=== PATIENT | female | born 1950 | race Caucasian/White ===

== ENCOUNTER 2019-08-06 07:22 | Outpatient (CLI) | payer MEDICARE, MEDICAID, SELFPAY ==
--- NOTE | ~2019-08-06 | PE_ITS ---
EXAMINATION: PET skull to mid thigh DATE: 08/06/2019 09:58 INDICATION: Multiple lung nodules. TECHNIQUE: Blood glucose level was 88 mg/dL. 8.730 mCi of 18-fluorodeoxyglucose (18-FDG) was administ ered i.v. Low dose computed tomography (CT) images were acquired from the base of the brain to the pr oximal thighs for attenuation correction and anatomic localization. Automated exposure control was em ployed. Dose-length product (DLP) was 282 mGy-cm. Positron emission tomography (PET) images were acqu ired in the same distribution. COMPARISON: None FINDINGS: Head/neck: There is increased activity in the glottis without CT correlate, likely physiologic. There are no pathologically enlarged lymph nodes. Chest: There is moderate emphysema. There is scarring at left lung apex and in anterolateral left nathan g without increased activity, which may be changes of radiation therapy. There is an 11 mm nodule in left upper lobe without increased activity. Calcified left lung nodules and calcified left hilar lymp h nodes are consistent with old adenomatous disease. There is mild atelectasis in the inferior lungs. No pleural effusion. The heart size is normal. There are coronary artery calcifications. No pericard ial effusion. There is a right internal jugular port with tip in superior vena cava. Abdomen/pelvis/proximal thighs: Calcifications in the liver and spleen are consistent with old granul omatous disease. The gallbladder, pancreas, adrenal glands, and kidneys are normal. There are no dila brian loops of bowel. There are no pathologically enlarged lymph nodes. There is no free intraperitonea l fluid. There is no osseous malignancy. IMPRESSION: 1. 11 mm nodule in left lung upper lobe without increased activity, likely benign. Noncontrast low-do se chest CT is recommended in 6 months unless previous outside imaging confirms stability. Reviewed, dictated and finalized at location A. D AND GRAPHITE INSPECTOR IMPRESSION: 1. 11 mm nodule in left lung upper lobe without increased activity, likely autumn gn. Noncontrast low-dose chest CT is recommended in 6 months unless previous ou tside imaging confirms stability.
[2019-08-06 08:21] LABS: Glucose Point of Care 88 (65-105)
== END 2019-08-06 07:23 | disposition home or self-care (01) ==
PROVIDERS: Visit Provider Nurse Practitioner
DX: R91.8 Other nonspecific abnormal finding of lung field (principal); R91.1 Solitary pulmonary nodule
CPT/HCPCS: 78815; A9552

== ENCOUNTER 2020-05-13 09:49 | Outpatient (CLI) | payer MEDICARE, MEDICAID, SELFPAY ==
--- NOTE | 2020-05-24 07:38 | WPDPFTINT ---
PFT Interpretation PFT Interpretation: This PFT met all criteria for ATS standards and reproducibility FEV/FVC post bronchodilator 39% FEV1 27% or 0.55 liters FVC 50% or 1.43 liters TLC 117% RV 223% RV/TLC 75% DLCO 25% when adjusted for alveolar volume but not adjusted for hemoglobin Flow volume loops showed severe expiratory coving Impression: Very severe airflow obstruction with severe air trapping and severely reduced diffusion capacity. This pattern is suggestive of COPD. Clinical correlation is advised.
--- NOTE | 2020-05-24 07:40 | WPDSIXMINUTE ---
Six Minute Walk Six Minute Walk: The patients O2 sats started at 94% and dropped as low as 91% Total walk distance 152.40 conclusion: This patient does not qualify for home oxygen therapy
== END 2020-05-13 09:50 | disposition home or self-care (01) ==
PROVIDERS: PCP Internal Medicine; Visit Provider Nurse Practitioner
DX: J44.9 Chronic obstructive pulmonary disease, unspecified (principal)
CPT/HCPCS: 94060; 94618; 94726; 94729

== ENCOUNTER 2021-06-10 10:30 | Day surgery (SDC) | payer BC, SELFPAY ==
--- NOTE | 2021-06-09 12:00 | ECG_ITS ---
Measurements Intervals [place] Rate: 121 P: TN: 0 QRS: 56 QRSD: 105 T: 49 QT: 318 QTc: 452 Interpretive Statements ATRIAL FIBRILLATION WITH RAPID VENTRICULAR RESPONSE ABNORMAL ECG Electronically Signed On 06-14-2021 16:36:41 REHAB CONSULTANT by Chris Serrano D.O.
[2021-06-10] VITALS (8 sets, daily range): BP systolic 123–150; BP diastolic 50–59; PULSE 69–77; RESP 16–27; TEMP 36.6–36.7; O2SAT 93–100
--- NOTE | 2021-06-10 11:22 | ED.GENADULT ---
HPI - General Adult General Chief complaint: Skin/Abscess/Foreign Body Stated complaint: food bolus stuck in throat Time Seen by Provider: 06/10/21 10:56 Source: patient Mode of arrival: ambulatory Limitations: no limitations History of Present Illness HPI narrative: Patient is a 70-year-old female with COPD on 2 L of oxygen via nasal cannula at baseline presented with chief complaint of food bolus that presents on Monday and is a piece of pork. Patient reports that she presented to [facility] and was given an appointment with the GI specialist but it is not until 06-15-21. Patient reports that she feels a bolus sensation. Patient reports that even when she tries to take small sips of water to take her daily medication she vomits and cannot get them down. She denies feeling as if the food bolus has been remitted with the vomiting. She denies shortness of breath. She reports occasional cough. Patient denies being on anticoagulants. Patient reports having GERD, hypertension, COPD, decreased renal function. Patient reports still being a smoker, reports that she is attempting to quit. She reports being in remittance for breast cancer. Related Data Home Medications Medication Instructions Recorded Confirmed albuterol sulfate 1 puff INHALATION DAILY 06/10/21 06/10/21 budesonide-formoterol [Symbicort] 1 puff INHALATION DAILY 06/10/21 06/10/21 diltiazem HCl 240 mg PO DAILY 06/10/21 06/10/21 nebivolol [Bystolic] 10 mg PO DAILY 06/10/21 06/10/21 Allergies Allergy/AdvReac Type Severity Reaction Status Date / Time CODEINE Allergy Unknown Unknown Uncoded 06/10/21 10:59 NFA Allergy Unknown Unknown Uncoded 06/10/21 10:59 Review of Systems Review of Systems: CONSTITUTIONAL: Denies fever, chills, or sweats. EYES: Denies visual changes, redness, or discharge. ENT: Denies rhinorrhea, congestion, sore throat, or otalgia. CARDIOVASCULAR: Denies chest pain, palpitations, or edema. RESPIRATORY: Reports occasional cough denies dyspnea. GASTROINTESTINAL: Reports intermittent vomiting and food bolus sensation denies abdominal pain, nausea, or diarrhea. GENITOURINARY: Denies dysuria or hematuria. SKIN: Denies rash or itching. MUSCULOSKELETAL: Denies back pain, joint pain, or myalgia. NEUROLOGIC: Denies headache, numbness, dizziness, or weakness. PSYCHIATRIC: Denies anxiety or depression. [facility] Past Medical History Medical History (Updated 06/10/21 @ 12:51 by Young Mckenzie PA-C) COPD (chronic obstructive pulmonary disease) On home O2 Exam Narrative: GENERAL: Appears elderly and frail HEAD: Normocephalic, atraumatic. EYES: PERRLA and EOMI. ENT: Nares clear, no rhinorrhea or epistaxis. Mucous membranes moist. Oropharynx without tonsillar hypertrophy exudate or other lesions. Bilateral TMs pearly chaidez nonbulging NECK: Supple. No adenopathy or masses. No carotid bruits or JVD CHEST: Clear to auscultation. No respiratory distress. No wheezes rales or rhonchi HEART: Regular rate and rhythm. No murmur heard. Normal peripheral pulses. ABDOMEN: Soft, nontender, nondistended, normal active bowel sounds. EXTREMITIES: Normal range of motion. No edema. SKIN: Warm, dry, no rash. NEURO: No focal deficits. Alert and oriented x3. PSYCH: Normal mood and affect. Course Vital Signs Vital signs: Vital Signs Temperature 98.0 F 06/10/21 10:35 Pulse Rate 77 06/10/21 10:35 Respiratory Rate 16 06/10/21 10:35 Blood Pressure 143/55 H 06/10/21 10:35 Pulse Oximetry 97 06/10/21 10:35 Temperature 97.8 F 06/10/21 11:51 Pulse Rate 74 06/10/21 11:51 Respiratory Rate 22 H 06/10/21 11:51 Blood Pressure 148/56 H 06/10/21 11:51 Pulse Oximetry 100 06/10/21 11:51 Medical Decision Making MDM Narrative Medical decision making narrative: Consult with Dr. Tinoco- GI specialist who states to obtain consent from patient and make her NPO and he will take her to the GI lab to perform a EGD. Patient in agreement with plan foe EGD. D
--- NOTE | 2021-06-10 11:48 | WPDANESEPPF ---
Anes - Initial Pre Proc Eval Procedure: Operation Date: 06/10/21 13:30 Proposed Procedures p Esophagogastroduodenoscopy for Food Bolus - Jose Tinoco MD Date/Time: 06/10/21 11:48 Surgeon: Jose Tinoco MD Pre Op Diagnosis: food bolus stuck in throat Patient Data Age: 70 Gender: F Height: 1.63 m Weight: 40.8 kg Last Vital Signs Temp 36.7 C 06/10/21 10:35 Pulse 70 06/10/21 11:16 Resp 16 06/10/21 11:16 BP 150/58 H 06/10/21 11:16 Pulse Ox 97 06/10/21 11:27 Allergies Allergy/AdvReac Type Severity Reaction Status Date / Time CODEINE Allergy Unknown Unknown Uncoded 06/10/21 10:59 NFA Allergy Unknown Unknown Uncoded 06/10/21 10:59 Home Medications Medication Instructions Recorded Confirmed Type albuterol sulfate 1 puff INHALATION DAILY 06/10/21 06/10/21 History budesonide-formoterol [Symbicort] 1 puff INHALATION DAILY 06/10/21 06/10/21 History diltiazem HCl 240 mg PO DAILY 06/10/21 06/10/21 History nebivolol [Bystolic] 10 mg PO DAILY 06/10/21 06/10/21 History Patient hx anesthesia problems: none Family hx anesthesia problems: none Results Review: All pre-operative results and documents have been reviewed as part of the pre-operative evaluation. [facility] Past Medical History Medical History (Updated 06/10/21 @ 11:53 by Martin Cornell DO) COPD (chronic obstructive pulmonary disease) On home O2 Anes - Eval Final PreProcedure Day of Procedure 06/10/21 11:48 Patient weight: cachectic Heart: regular rate and rhythm Lungs: clear to auscultation and normal air movement Airway: Mallampati scale class II Neurological: alert and oriented Last oral intake: >/= 8 hours ASA classification: IV Emergent: no Anesthetic plan: proceed Anesthesia type and monitoring: general GIVS and standard monitoring Results Review: All pre-operative results and documents have been reviewed as part of the pre-operative evaluation. Informed Consent: The patient's anesthetic plan and its attendant risks and benefits were discussed with the patient/family/POA. Questions were solicited and answers provided to the satisfaction of the patient/family/POA.
--- NOTE | 2021-06-10 11:57 | WPDGICN ---
Assessment and Plan Assessment and plan (1) Food impaction of esophagus: Code(s): T18.128A - Food in esophagus causing other injury, initial encounter Status: Acute Assessment and Plan: Patient has food impaction in the esophagus. Likely related to narrowing of the esophagus. Plan is for EGD and hopefully disimpact this food impaction. Further recommendations regarding dilatation will depend on findings at time of endoscopy. (2) Dysphagia: Code(s): R13.10 - Dysphagia, unspecified Status: Acute Assessment and Plan: Patient has difficulty swallowing. She has had issues in the past. These were addressed at a different hospital. I suspect this is esophageal narrowing and stricturing secondary to acid reflux. Further recommendations will be given after endoscopy. (3) COPD (chronic obstructive pulmonary disease): Code(s): J44.9 - Chronic obstructive pulmonary disease, unspecified Status: Acute Assessment and Plan: Patient has longstanding COPD with home oxygen. She is somewhat short of breath today this will make at relatively high risk for endoscopic procedure today. Patient understands and wishes to proceed because she cannot swallow or take her medications. GI Consult Note Consult date/time: 06/10/21 11:57 HPI: Caridad Eli is a 70 year old female Presents to the ER today with food impaction. Patient has longstanding history of COPD on supplemental oxygen. She states on Monday 2 days ago was eating pork steaks. She subsequently was unable to eat or swallow. On Monday she presented to [facility] in [place]. She was given an elective appointment to see a brim greaser operator. She continued to have difficulty swallowing food or liquids in even difficulty with her own saliva. For this reason she presented to [facility] today. Patient states that she has had difficulty swallowing in the distant past. She may have had an endoscopy and dilatation more than 10 years ago. She does not take medications for acid reflux. She denies heartburn she has had no bleeding or weight loss. Additionally patient gives a history of breast cancer. On both left and right breasts in the past. Review of Systems Review of Systems: All systems reviewed & are unremarkable except as noted in HPI and below PMFSH Past Medical History Medical History (Updated 06/10/21 @ 12:00 by Jose Tinoco MD) COPD (chronic obstructive pulmonary disease) On home O2 Meds Home Medications and Allergies Home Medications Medication Instructions Recorded Confirmed Type albuterol sulfate 1 puff INHALATION DAILY 06/10/21 06/10/21 History budesonide-formoterol [Symbicort] 1 puff INHALATION DAILY 06/10/21 06/10/21 History diltiazem HCl 240 mg PO DAILY 06/10/21 06/10/21 History nebivolol [Bystolic] 10 mg PO DAILY 06/10/21 06/10/21 History Allergies Allergy/AdvReac Type Severity Reaction Status Date / Time CODEINE Allergy Unknown Unknown Uncoded 06/10/21 10:59 NFA Allergy Unknown Unknown Uncoded 06/10/21 10:59 Vital Signs Vital Signs - 24 hr 06/10/21 10:35 06/10/21 11:15 06/10/21 11:16 Temperature 98.0 F Pulse Rate 77 70 Respiratory Rate 16 16 Blood Pressure 143/55 H 150/58 H Pulse Oximetry 97 96 99 06/10/21 11:27 06/10/21 11:51 Temperature 97.8 F Pulse Rate 74 Respiratory Rate 22 H Blood Pressure 148/56 H Pulse Oximetry 97 100 Exam Narrative: Physical exam reveals patient to be alert. Vital signs stable. Patient is very thin has some muscle wasting. HEENT exam is unremarkable. Patient is anicteric. Patient has a port for chemotherapy in the right anterior chest wall. Lungs are clear to auscultation and percussion. Heart is without murmur or extra sounds. Abdominal exam bowel sounds present soft nontender with no hepatosplenomegaly.
[2021-06-10] MEDS: LACTATED RINGERS 1,000 ML 150 ML IV CONT (12:01)
== END 2021-06-10 13:35 | disposition home or self-care (01) ==
LOC: ANHED 11:11 → ANHENDO 11:15
PROVIDERS: Emergency Provider Emergency Medicine; PCP Internal Medicine; Visit Provider Internal Medicine Gastroenterology
PROC: 0DJ08ZZ Inspection of Upper Intestinal Tract, Via Natural or Artificial Opening Endoscopic (ICD-10-PCS; CPT 43235; principal; 2021-06-10 13:30)
DX: T18.128A Food in esophagus causing other injury, initial encounter (principal); Q39.4 Esophageal web; J44.9 Chronic obstructive pulmonary disease, unspecified; Z99.81 Dependence on supplemental oxygen; R64 Cachexia; Z68.1 Body mass index [BMI] 19.9 or less, adult
CPT/HCPCS: 43247; 93005; 96360; 99285; J2704; J7120

== ENCOUNTER → 2021-12-24 03:01 | Outpatient (CLI) | payer MEDICARE, MEDICAID, SELFPAY ==
[2021-12-24 16:51] LABS: SARS-CoV-2 RNA PCR Negative
== END ==
PROVIDERS: PCP Internal Medicine; Visit Provider Internal Medicine
DX: J01.90 Acute sinusitis, unspecified (principal); Z20.822 Contact with and (suspected) exposure to COVID-19
CPT/HCPCS: C9803; U0003; U0005

== ENCOUNTER 2022-12-14 10:23 | Inpatient (IN) | payer MEDICARE, MEDICAID, SELFPAY ==
[2022-12-14] VITALS (9 sets, daily range): BP systolic 100–166; BP diastolic 44–69; PULSE 71–89; RESP 17–23; TEMP 36.7–37.6; O2SAT 96–100; BMI 15.0
--- NOTE | ~2022-12-14 | XR_ITS ---
Portable chest x-ray Comparison: 12/23/2022 Clinical History: Shortness of breath Findings: Right-sided Mediport is unchanged. Small left pleural effusion is present. There is COPD p attern of the lungs with mild diffuse interstitial prominence. Biapical irregular nodular consolidati ons are again present. Cardiomediastinal silhouette is stable. Bones and soft tissues are unremarkabl e. Impression: Small left pleural effusion. Stable biapical irregular nodular opacities. Probable COPD or other underlying chronic interstitial disease. Stable Mediport. Reviewed, dictated and finalized at location . Impression: Small left pleural effusion. Stable biapical irregular nodular opacities. Probable COPD or other underlying chronic interstitial disease. Stable Mediport.
--- NOTE | ~2022-12-14 | CT_ITS ---
EXAMINATION: CT brain wo con DATE: 12/14/2022 11:09 INDICATION: Altered mental status and confusion TECHNIQUE: Computed tomography (CT) of the head was performed without intravenous contrast. Sagittal and coronal reconstructions were performed. Automated exposure control and iterative reconstruction t [employer] were employed. The dose-length product was 681.00 mGy-cm. COMPARISON: None FINDINGS: No acute intracranial hemorrhage, acute infarction or abnormal extra axial fluid collection. There is mild to moderate scattered white matter hypoattenuation consistent with chronic small vessel ischemic disease. Symmetric prominence of the sulci consistent with mild age-appropriate diffuse cer ebral volume loss. Ventricles are normal and symmetric. No mass/mass effect. Minimal mucosal thickeni ng the left frontal sinus. The orbits and mastoid air cells are normal. IMPRESSION: 1. No acute intracranial process. 2. Age-related changes including mild diffuse volume loss and mild to moderate scattered white matter hypoattenuation consistent with chronic small vessel ischemic disease. Reviewed, dictated and finalized at location A. IMPRESSION: 1. No acute intracranial process. 2. Age-related changes including mild diffuse volume loss and mild to moderate scattered white matter hypoattenuation consistent with chronic small vessel isc hemic disease.
--- NOTE | ~2022-12-14 | XR_ITS ---
EXAMINATION: XR chest 1V portable INDICATION: Cough TECHNIQUE: Portable AP chest at 1026 hours COMPARISON: 11/24/2022 FINDINGS: A right internal jugular Port-A-Cath ends with its tip in the midsuperior vena cava. There is a small left pleural effusion with interval increase in size. Left basilar airspace opacities have increased. There is severe emphysema. Subtle upper lobe predominant nodules are again seen, better a ppreciated on the comparison CT. IMPRESSION: 1. Small left pleural effusion with increase in size. 2. Increasing left basilar airspace opacity, atelectasis versus pneumonia. 3. Subtle nodules in the upper lung zones as previously described, infectious versus metastatic disea se. Reviewed, dictated and finalized at location B. IMPRESSION: 1. Small left pleural effusion with increase in size. 2. Increasing left basilar airspace opacity, atelectasis versus pneumonia. 3. Subtle nodules in the upper lung zones as previously described, infectious v ersus metastatic disease.
--- NOTE | ~2022-12-14 | XR_ITS ---
Portable chest x-ray Comparison: None Clinical History: Shortness of breath Findings: Right-sided Mediport in place. There is upper lobe predominant interstitial change. Possib le underlying COPD. Cardiomediastinal silhouette is stable. Bones and soft tissues are unremarkable. Impression: Upper lobe predominant chronic interstitial change. 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 Possible underlying COPD. Right-sided Mediport. Reviewed, dictated and finalized at location M. Impression: Upper lobe predominant chronic interstitial change. Most likely diagnostic cons iderations would include sarcoid and old TB. Possible underlying COPD. Right-sided Mediport.
--- NOTE | ~2022-12-14 | CT_ITS ---
Clinical Indication: Upper lobe interstitial disease, shortness of breath CT Scan of the Chest with Contrast: Technique: Contiguous sections were acquired throughout the chest after intravenous administration of 75 cc of Omnipaque 350. Dose reduction technique was used on this scan by utilizing automated exposu re control and iterative reconstruction technique. The dose-length product (DLP) was 137.74 mGy-cm. COMPARISON: PET/CT dated 08/06/2019 Findings: There is no evidence of any significant mediastinal, hilar or axillary lymphadenopathy. There is no f illing defect in the pulmonary arterial tree to suggest pulmonary embolus. There is no evidence of ao rtic dissection or aneurysm. Extensive atherosclerotic changes of the aorta are noted. There is no evidence of pleural or pericardial effusion. There is an irregular pulmonary nodule in the left lung apex measuring up to 2.4 x 0.9 cm (axial imag e 25). There are 2 adjacent irregular nodules in the superior segment left lower lobe, larger measuri ng 1.3 cm in diameter, and the smaller more medial nodule measuring 0.8 cm (axial image 24). There is an irregular nodule in the right upper lobe measuring 1.8 cm in maximum diameter ((axial image 24). There are smaller right apical nodules measuring up to 0.6 cm in diameter (axial images 18, 21). Ther e is an additional 0.6 and a nodule in the more inferior right upper lobe (axial image 37). Moderate to severe emphysema present. There is interstitial thickening at the left lung base. There is a 3 mm right lower lobe pulmonary nodule (axial image 86). Images through the upper abdomen reveal relative area of increased parenchymal enhancement in the ant erior left hepatic lobe. Calcified splenic granulomas are present. Impression: Multiple irregular pulmonary nodules, predominantly in the upper lobes, as detailed above. Findings c ould reflect metastatic disease versus possibly infectious process. Correlate clinically and with rel evant history. Consider tissue sampling versus short-term follow-up CT after anterior interval approp riate therapy. Moderate to severe COPD. Interstitial thickening left lung base. This could relate related to COPD. Acute pneumonia there is a n additional consideration. Reviewed, dictated and finalized at location M. Impression: Multiple irregular pulmonary nodules, predominantly in the upper lobes, as deta iled above. Findings could reflect metastatic disease versus possibly infectiou s process. Correlate clinically and with relevant history. Consider tissue samp ling versus short-term follow-up CT after anterior interval appropriate therapy . Moderate to severe COPD. Interstitial thickening left lung base. This could relate related to COPD. Acut e pneumonia there is an additional consideration.
--- NOTE | ~2022-12-14 | US_ITS ---
EXAMINATION:US venous doppler LE BI INDICATION:Leg edema TECHNIQUE: Multiple grayscale, color flow and Doppler images of the right and left lower extremity de ep venous systems were obtained and reviewed. COMPARISON:No prior studies for comparison. FINDINGS: The common femoral, superficial femoral and popliteal veins demonstrate normal respiratory variation, augmentation and compressibility. Color flow is also seen within the posterior tibial, pe roneal, greater saphenous and profunda veins. IMPRESSION: 1: No lower extremity deep venous thrombosis. Reviewed, dictated and finalized at location L.
--- NOTE | ~2022-12-14 | XR_ITS ---
EXAMINATION: XR barium swallow modified DATE: 12/26/2022 09:48 INDICATION: Choking and vomiting. TECHNIQUE: The patient was given barium-containing material of multiple consistencies to swallow by t daniele speech pathologist while I performed fluoroscopy. Fluoroscopy exposure time was 1.0 minutes. The n umber of fluoroscopy images saved to the PACS was 1. Dose-area product was 0.711 Gy-cm^2. FINDINGS: There is reduced laryngeal elevation, reduced tongue base retraction, vallecular residue, and larynge al penetration. IMPRESSION: 1. Laryngeal penetration. 2. Please refer to the speech therapy report for recommendations. Reviewed, dictated and finalized at location A.
--- NOTE | 2022-12-14 10:33 | ECG_ITS ---
Measurements Intervals [place] Rate: 87 P: 85 NV: 177 QRS: 58 QRSD: 94 T: 39 QT: 361 QTc: 437 Interpretive Statements SINUS RHYTHM COMPARED TO ECG 06/10/2021 12:00:11 THE ATRIAL FIBRILLATION HAS RESOLVED Electronically Signed On 12-14-2022 19:53:48 CDT by Judy Stiles M.D.
--- NOTE | 2022-12-14 10:52 | ED.SOB ---
HPI - SOB/Dyspnea General Chief Complaint: Shortness of Breath/Dyspnea <FRANK Pearson Last Filed: 12/14/22 17:43> Stated Complaint: SOB <Debbie Hamlin PA-C - Last Filed: 12/14/22 17:43> Time Seen by Provider: 12/14/22 10:25 <FRANK Perason Last Filed: 12/14/22 17:43> History of Present Illness HPI Narrative: Patient is a 71-year-old female with a history of COPD on 3 L chronically here for multiple medical complaints. History is somewhat limited because patient appears confused. Patient states that she initially called EMS for shortness of breath. According to EMS when they arrived her oxygen tubing was kinked, she was saturating at 90%, when they unkinked her oxygen she came up to 98%, but her shortness of breath persisted. Patient then started to complain of a soreness near her tailbone, worse when she sits. Patient is also concerned about intermittent nosebleeds for the past several weeks and sinus congestion. She states she is concerned about a possible infection in her lungs because of the nosebleeds. Patient lives at home by herself. She does have a home health nurse that comes occasionally. <FRANK Pearson Last Filed: 12/14/22 17:43> Related Data Home Medications: Home Medications Medication Instructions Recorded Confirmed albuterol sulfate 90 mcg/actuation 1 puff inhalation DAILY 06/10/21 12/14/22 aerosol inhaler budesonide-formoterol HFA 160 1 puff inhalation DAILY 06/10/21 12/14/22 mcg-4.5 mcg/actuation aerosol inhaler (Symbicort) diltiazem HCl 240 mg 240 mg PO DAILY 06/10/21 12/14/22 capsule,extended release 24 hr nebivolol 10 mg tablet (Bystolic) 10 mg PO DAILY 06/10/21 12/14/22 furosemide 40 mg tablet 40 mg PO WEEKLY PRN Edema 12/14/22 12/14/22 <FRANK Pearson Last Filed: 12/14/22 17:43> Allergies/Adverse Reactions: Allergies Allergy/AdvReac Type Severity Reaction Status Date / Time codeine Allergy Unknown Unknown Verified 12/21/22 11:34 NFA Allergy Unknown Unknown Uncoded 12/14/22 18:25 <Debbie Hamlin PA-C - Last Filed: 12/14/22 17:43> Review of Systems Review of Systems: Gen: Denies fevers or chills Eyes: Denies eye pain or visual change ENT: Reports congestion and nosebleeds Respiratory: Reports shortness of breath CV: Denies chest pain or palpitations GI: Denies abdominal pain nausea, emesis or diarrhea denies burning, urgency, frequency or hematuria Musculoskeletal: Denies back pain or muscle pain Neuro: Denies numbness, tingling, weakness or focal weakness Skin: Reports pain in her tailbone Except as documented, all other systems reviewed and negative <Debbie Hamlin PA-C - Last Filed: 12/14/22 17:43> [facility] Past Medical History Medical History: Medical History (Updated 12/15/22 @ 16:12 by Nery Sanchez PA-C) Breast cancer Status post bilateral mastectomy and chemoradiation. Chronic obstructive pulmonary disease Chronic respiratory failure with hypoxia, on home oxygen therapy Diverticulosis GI bleed (2009) Attributed to bleeding ulcers. Hypertension Peptic ulcer Tobacco dependence <Debbie Hamlin PA-C - Last Filed: 12/14/22 17:43> Surgical History Surgical History: Surgical History (Updated 12/14/22 @ 23:27 by Elda Watt PA-C) History of bilateral mastectomy History of section History of tubal ligation <Debbie Hamlin PA-C - Last Filed: 12/14/22 17:43> Family History Family History: Family History Father Cerebrovascular accident Mother Cancer of mouth Sibling Hypertension <Debbie Hamlin PA-C - Last Filed: 12/14/22 17:43> Social History Social History: Social History (Updated 12/14/22 @ 23:27 by Elda Watt PA-C) Social History: Surrogate medical decision maker: Natalie Cabral, sibling. [place]
[2022-12-14 11:09] LABS: Basophils Percent Auto 0.2 % (0.2-1.2); Eosinophils Percent Auto 0.1 % (0-4.4); Hematocrit 33.3 % (37.0-47.0); Hemoglobin 11.4 g/dL (12.0-15.0); Immature Granulocyte Absolute 0.05 K/mm3 (0.00-0.031); Immature Granulocyte Percent A 0.4 % (0-0.5); Lymphocytes Absolute Auto 0.48 K/mm3 (0.9-3.2); Lymphocytes Percent Auto 4.2 % (18.3-44.2); Mean Corpuscular HGB Conc 34.2 g/dl (32-36); Mean Corpuscular Volume 87.6 fl (80-100); Monocytes Absolute Auto 0.6 K/mm3 (0.1-0.6); Monocytes Percent Auto 5.4 % (2.6-8.5); Neutrophils Absolute Auto 10.4 K/mm3 (1.3-6.7); Neutrophils Percent Auto 89.7 % (45.5-73.1); Platelet Count Result 188 k/mm3 (150-375); Red Cell Distribution Width 13.2 % (11.5-14.5); White Blood Count 11.6 K/mm3 (4.5-10.0)
[2022-12-14 11:20] LABS: Alanine Aminotransferase 12 U/L (6-35); Alkaline Phosphatase 93 U/L (38-126); Aspartate Amino Transferase 21 U/L (14-36); Bilirubin,Total 1.4 mg/dL (0.2-1.3); Blood Urea Nitrogen 9 mg/dL (7-17); Calcium 8.9 mg/dL (8.4-10.2); Carbon Dioxide > 40 mmol/L (22-30); Chloride 76 mmol/L (98-107); Estimated CRCL calculation 50 ml/min; Estimated Glomerular Filt Rate > 60; Glucose 108 mg/dL (65-110); Partial Thromboplastin Time 28.9 SECONDS (22.3-36.8); Potassium 3.6 mmol/L (3.4-5.0); Sodium 120 mmol/L (137-145)
[2022-12-14 11:44] LABS: Creatine Kinase 30 U/L (30-135); Magnesium 1.6 mg/dL (1.6-2.3); Phosphorus 3.5 mg/dL (2.5-4.5)
[2022-12-14 11:59] LABS: Influenza A QL RT-PCR Negative (Negative); Influenza B QL RT-PCR Negative (Negative); SARS-CoV-2 RNA PCR Negative (Negative)
[2022-12-14 12:14] LABS: Appearance Urine Cloudy (Clear); Bacteria Urine None Seen /hpf; Bilirubin Urine Negative (Negative); Blood Urine Negative (Negative); Color Urine Yellow (Yellow); Glucose Urine UA Negative (Negative); Ketones Urine Trace mg/dL (Negative); Leukocyte Esterase Ur Trace LEU/UL (Negative); Nitrate Urine Negative (Negative); Non Pathogenic Casts 0-2; Protein Urine Negative (Negative); Specific Grav Ur 1.011 (1.001-1.035); Squamous Epithelial Cell Urine Few /hpf (Few); WBC Urine 0-5 /hpf; pH Urine 7.5 (5.0-9.0)
[2022-12-14 12:26] LABS: Creatinine Urine 80.6 mg/dL
[2022-12-14] MEDS: SILVERGEL (ELTA) 45 ML 1 APPLIC TOPICAL (12:26)
[2022-12-14 12:27] LABS: Fractional Inspired Oxygen 32 %; HCO3 VBG 38.9 mEq/l (24.0-30.0); PCO2 VBG 55.9 mmHg (42.0-48.0); PO2 VBG 38.9 mmHg (35.0-45.0)
[2022-12-14 12:27] LABS: Sodium Urine Random 20 meq/L
[2022-12-14 12:28] LABS: Device NASAL CANNULA
[2022-12-14 12:31] LABS: Add Urine Microscopic? YES
[2022-12-14 12:34] LABS: Lactic Acid Reflex 1.1 mmol/L (0.7-2.0)
[2022-12-14] MEDS: IPRATROPIUM BR 0.02% INH SOLN 0.5 MG/2.5 ML VIAL INHALATION (13:13)
[2022-12-14] MEDS: ALBUTEROL SULFATE NEB 2.5 MG/3 ML INH INHALATION (13:13)
[2022-12-14] MEDS: SODIUM CHLORIDE 0.9% IV 1,000 ML 999 ML IV CONT (13:17)
[2022-12-14 13:44] LABS: Thyroid Stimulating Hormone Reflex 0.966 uIU/mL (0.465-4.68)
[2022-12-14] MEDS: AZITHROMYCIN 500 MG/NS 250 ML 500 MG/250 ML BAG 250 MG IVPB (14:02)
[2022-12-14] MEDS: ACETAMINOPHEN 325 MG TABLET 650 MG PO (14:08)
--- NOTE | 2022-12-14 15:00 | ADMGEN ---
This patient, Caridad Eli, was admitted to Medical Room 250-01. Patient/family oriented to hospital policies and general routines including ID bracelet, bed and alarms, visiting hours, pain management, procedures, bathroom and other care routines, personal items, smoking policy, room service/diet, and visiting hours. Information on how to activate the Rapid Response Team has been discussed. Patient/Family are encouraged to report perceived risks to care and to ask questions if they do not understand what they are told or what they should do.
[2022-12-14] MEDS: SODIUM CHLORIDE 0.9% IV 1,000 ML 100 ML IV CONT (15:44)
[2022-12-14 17:56] LABS: Anion Gap 1 mmol/L (8-16); Blood Urea Nitrogen 8 mg/dL (7-17); Calcium 8.1 mg/dL (8.4-10.2); Carbon Dioxide 38 mmol/L (22-30); Chloride 82 mmol/L (98-107); Estimated CRCL calculation 55 ml/min; Estimated Glomerular Filt Rate > 60; Glucose 131 mg/dL (65-110); Potassium 3.6 mmol/L (3.4-5.0); Sodium 121 mmol/L (137-145)
[2022-12-14 20:33] LABS: Urea Random Urine 321 MG/DL
--- NOTE | 2022-12-14 23:19 | PM.IMHP ---
H&P: HPI History of Present Illness Date/Time: 12/14/22 15:00 Chief Complaint: Shortness of breath Narrative: This is a pleasant 71-year-old female smoker with chronic respiratory failure on 3 L nasal cannula, chronic obstructive pulmonary disease, and history of breast cancer who presented to the emergency department via EMS from home for evaluation of shortness of breath. The patient provides the following history. She has chronic dyspnea on exertion given her underlying lung disease however she has been increasingly short of breath for the last week or so. She has a chronic cough though it has more recently become productive of yellow sputum. She has had mild chills but no fever to her knowledge. Today she was more short of breath than usual and she called 911. On EMS arrival her oxygen tubing was reportedly kinked though her SpO2 was 90% on room air. Vital signs have been stable since arrival and she is at her baseline oxygen requirement. Labs were significant for white blood cell count of 11.6, sodium 120, chloride 76, BUN 9, creatinine 0.50. Chest CTA showed multiple, irregular pulmonary nodules in the upper lobes which could reflect metastatic disease or infection as well as monitors severe COPD and possible acute pneumonia at the left lung base. She was started on azithromycin and ceftriaxone. She is being admitted in this setting for pneumonia and hyponatremia. At the time my evaluation she is resting comfortably and she has no specific complaints. She has not had a fever. She denies headache, sinus congestion, and sore throat. No recent travel or sick contacts. No chest or pleuritic pain. Appetite has been fair though she has lost about 20 lb in the last year or so. She denies nausea, vomiting, and diarrhea. To her knowledge she has not had low sodium in the past. She drinks a 16 oz Pepsi and maybe a glass of water throughout the day. She has not noticed any confusion. Of note she has not smoked much this month at all and intends on quitting. Review of Systems Review of Systems: Twelve systems were reviewed and are negative except for as per HPI. [facility] Past Medical History Medical History (Updated 12/14/22 @ 23:30 by Elda Watt PA-C) Breast cancer Status post bilateral mastectomy and chemoradiation. Chronic obstructive pulmonary disease Chronic respiratory failure with hypoxia, on home oxygen therapy Diverticulosis GI bleed (2009) Attributed to bleeding ulcers. Hypertension Peptic ulcer Tobacco dependence Surgical History Surgical History (Updated 12/14/22 @ 23:27 by Elda Watt PA-C) History of bilateral mastectomy History of section History of tubal ligation Family History Family History Father Cerebrovascular accident Mother Cancer of mouth Sibling Hypertension Social History Social History (Updated 12/14/22 @ 23:27 by lEda Watt PA-C) Social History: Surrogate medical decision maker: Natalie Delucacock, sibling. Code status: Full code. Smoking packs per day: 0.5 Smoking cigarettes per day: 10.0 Years smoked: 55 Smoking pack-years: 27.50 Smoking status: Current every day smoker Alcohol intake: never Substance use: never Substance use type: does not use Lack of Transportation: No Lack of Food: Never True Current Housing: I Have Housing Concerned About Future Housing: No Difficulty Paying Gas/Electric Bills: No Difficulty Paying for Meds: No Currently Unemployed: No Education: High School Diploma/GED Difficulty w/ Childcare or Family Care: No Living arrangements: alone Additional living arrangements comments: The patient lives in her own home in [place]. Spiritual care concerns: No Meds Home Medications and Allergies Home Medications Medication Instructions Recorded Confirmed Type albuterol sulfate 90 mcg/actuation 1 puff inhalation DAILY 06/10/21 12/14/22
[2022-12-15] VITALS (23 sets, daily range): BP systolic 120–142; BP diastolic 53–58; PULSE 72–96; RESP 17–20; TEMP 36.7–36.9; O2SAT 95–99; BMI 15.0
--- NOTE | 2022-12-15 | ECHO_ITS ---
Patient Info Name: Caridad Eli Age: 71 years : 1950 Gender: Female Ht: 64 in Wt: 87 lbs BSA: 1.32 m2 HR: 81 bpm BP: 138 / 53 mmHg Heart Rhythm: Sinus Arrhythmia Technical Quality: Fair Exam Date: 12/15/2022 9:07 AM Exam Location: [facility] Patient Status: Outpatient Admit Date: 12/14/2022 Staff Ordering Physician: Elda Watt PA-C Calculator Operator: Felipe Brandt RDCS Attending Provider: Nery Sanchez PA-C Referring Physician: Shukri DIAZ; Exam Type: CA echo doppler color flow Study Info Indications - apical murmur/HTN/COPD Complete two-dimensional, color flow and Doppler transthoracic echocardiogram is performed. Summary 1. Complete two-dimensional, color flow and Doppler transthoracic echocardiogram is performed. 2. Left ventricular chamber dimension is normal. 3. Left ventricular systolic function is hyperdynamic, estimated at >70%. 4. There is mildly increased left ventricular wall thickness. 5. The left ventricular diastolic function is grade I diastolic dysfunction. 6. Right ventricular systolic function is normal. 7. There is mild mitral valve regurgitation. 8. There is trace tricuspid valve regurgitation. 9. There is small anterior pericardial effusion. Left Ventricle Left ventricular chamber dimension is normal. Left ventricular systolic function is hyperdynamic, estimated at >70%. There is mildly increased left ventricular wall thickness. The left ventricular diastolic function is grade I diastolic dysfunction. Right Ventricle Right ventricular chamber dimension is normal. Right ventricular systolic function is normal. Left Atria Left atrial chamber dimension is normal. Right Atria Right atrial chamber dimension is normal. Atrial Septum Intact interatrial septum visualized by color flow imaging. Aortic Valve The aortic valve is probable trileaflet. There is no aortic valve stenosis. There is no aortic valve regurgitation. There is moderate aortic valve calcification. Pulmonic Valve The pulmonic valve is not well visualized. Mitral Valve There is mild mitral valve regurgitation. The mitral valve annulus is moderately calcified. Tricuspid Valve There is trace tricuspid valve regurgitation. Pericardium/Pleural There is small anterior pericardial effusion. Inferior Vena Cava Normal inferior vena cava with >50% collapse upon inspiration consistent with normal right atrial pressure, 3 mmHg. Aorta The aortic root size at the sinus of Valsalva is normal. Left Ventricular Outflow Tract Name Value Normal LVOT 2D LVOT Diameter 2.0 cm LVOT Doppler LVOT Peak Gradient 12 mmHg LVOT Mean Gradient 7 mmHg LVOT VTI 39 cm LVOT VTI/AV VTI Ratio 1.1 LVOT Stroke Volume 129 ml LVOT CO 12.3 l/min LVOT CI 9.3 l/min/m2 Pulmonic Valve Name Value Normal RVOT D
[2022-12-15 00:30] LABS: Sodium 123 mmol/L (137-145)
[2022-12-15] MEDS: ALBUTEROL SULFATE NEB 2.5 MG/3 ML INH INHALATION ×4 (01:40→21:55)
[2022-12-15] MEDS: IPRATROPIUM BR 0.02% INH SOLN 0.5 MG/2.5 ML VIAL INHALATION ×4 (01:40→21:55)
[2022-12-15 05:16] LABS: Hematocrit 31.6 % (37.0-47.0); Hemoglobin 10.7 g/dL (12.0-15.0); Mean Corpuscular HGB Conc 33.9 g/dl (32-36); Mean Corpuscular Hemoglobin 30.1 pg (26-34); Mean Platelet Volume 7.5 fl (7.4-10.4); Platelet Count Result 163 k/mm3 (150-375); Red Blood Count 3.55 M/mm3 (4.2-5.4); Red Cell Distribution Width 13.4 % (11.5-14.5); White Blood Count 9.4 K/mm3 (4.5-10.0)
[2022-12-15 05:28] LABS: Anion Gap 3 mmol/L (8-16); Blood Urea Nitrogen 8 mg/dL (7-17); Calcium 8.1 mg/dL (8.4-10.2); Carbon Dioxide 36 mmol/L (22-30); Chloride 87 mmol/L (98-107); Estimated CRCL calculation 55 ml/min; Estimated Glomerular Filt Rate > 60; Glucose 87 mg/dL (65-110); Magnesium 1.7 mg/dL (1.6-2.3); Potassium 3.3 mmol/L (3.4-5.0); Sodium 126 mmol/L (137-145)
[2022-12-15] MEDS: FLUTICASONE/SALMETEROL 115-21 MCG INHALER 1 PUFF 2 PUFF INHALATION ×2 (07:15→21:55)
[2022-12-15] MEDS: MAGNESIUM SULF 2 GM/WATER 50ML 2 GM/50 ML BAG IVPB (10:02)
[2022-12-15] MEDS: ENOXAPARIN 40 MG/0.4 ML SYRINGE SUB-Q (10:04)
[2022-12-15] MEDS: NEBIVOLOL HCL 5 MG TABLET 10 MG PO (10:05)
[2022-12-15 10:39] LABS: Sodium 126 mmol/L (137-145)
[2022-12-15] MEDS: POTASSIUM CHLORIDE 20 MEQ PACKET (FOR LIQUID) PO (12:10)
[2022-12-15] MEDS: AZITHROMYCIN 500 MG/NS 250 ML 500 MG/250 ML BAG 250 MG IVPB (13:16)
--- NOTE | 2022-12-15 15:54 | PM.IMPN ---
Progress Note: A&P Assessment and Plan (1) Community acquired pneumonia: Code(s): J18.9 - Pneumonia, unspecified organism Status: Acute Assessment and Plan: CXR on presentation showed upper lobe predominant chronic interstitial changes, follow-up CT showed multiple irregular pulmonary nodules, predominantly in the upper lobes, concerning for metastatic disease versus possibly infectious process. Continue with ceftriaxone and azithromycin. Attempt sputum for culture. Legionella and pneumococcal antigens pending. (2) Pulmonary nodules: Code(s): R91.8 - Other nonspecific abnormal finding of lung field Status: Acute Assessment and Plan: She should have a short-term follow-up CT following appropriate treatment for pneumonia to ensure the multiple irregular pulmonary nodules noted on chest CT today are stable or improving. She does have a history of bilateral breast cancer and there is a possibility that these nodules may be malignant. (3) Hyponatremia: Code(s): E87.1 - Hypo-osmolality and hyponatremia Status: Acute Assessment and Plan: The patient's sodium was 120 and her urine electrolytes are pre renal. Sodium improved at appropriate rate, up to 126 today. Goal increase of no more than 8 mEq/24 hours. Continue with fluid restriction diet at this time. Trend sodium q6h. (4) Hypokalemia: Code(s): E87.6 - Hypokalemia Status: Acute Assessment and Plan: Potassium 3.3. Initiate supplementation. Magnesium low at 1.7, begin supplementation as well. Monitor BMP (5) Chronic respiratory failure with hypoxia, on home oxygen therapy: Code(s): J96.11 - Chronic respiratory failure with hypoxia; Z99.81 - Dependence on supplemental oxygen Status: Acute Assessment and Plan: At baseline oxygen requirement (6) Chronic obstructive pulmonary disease: Code(s): J44.9 - Chronic obstructive pulmonary disease, unspecified Status: Acute Assessment and Plan: Not in acute exacerbation. Bronchodilators available as needed (7) Hypertension: Code(s): I10 - Essential (primary) hypertension Status: Acute Assessment and Plan: Blood pressures are stable. Continue home meds (8) Tobacco dependence: Code(s): F17.200 - Nicotine dependence, unspecified, uncomplicated Status: Acute Assessment and Plan: Declines need for nicotine patch. Has intentions of quitting smoking. Subjective Date/time seen: 12/15/22 15:54 Interval history: Date of service: 12/15/2022 Dot R Eli is a 71-year-old female with a history of COPD, chronic respiratory failure on 3 L supplemental oxygen, tobacco dependence, hypertension, breast cancer who is seen in follow-up for pneumonia and hyponatremia. Patient states that her breathing has improved. She continues to endorse shortness of breath and dyspnea on exertion. Complains of nonproductive cough. She feels that she has phlegm in her throat that she cannot cough up. She endorses over night sweats, fever, and chills. Denies chest pain. Reports unchanged, chronic wheezing. No abdominal pain, nausea, or vomiting. She is tolerating her diet. She denies dizziness, lightheadedness, weakness. Denies confusion. Review of Systems Review of Systems: Twelve systems were reviewed and are negative except for as per HPI. All systems reviewed & are unremarkable except as noted in HPI and below Exam Narrative: General: well-nourished, well-appearing 71-year-old female, sitting up in bed, comfortable, NARD Neuro: awake, alert and oriented x4, speech clear, no focal neuro deficits noted HEENMT: normocephalic, atraumatic, EOMI, sclerae anicteric Respiratory: Diminished breath sounds bilaterally, nonlabored breathing Cardio: regular rate, regular rhythm with S1-S2 Abdomen: nondistended, normoactive bowel sounds, soft, nontender to palpation Extremiti
[2022-12-15 17:01] LABS: Sodium 125 mmol/L (137-145)
[2022-12-15] MEDS: SILVERGEL (ELTA) 45 ML 1 APPLIC TOPICAL (17:17)
[2022-12-15] MEDS: guaiFENesin 12 HR 600 MG TABCR PO (20:37)
[2022-12-15] MEDS: DOCUSATE SODIUM 100 MG CAPSULE PO (20:37)
[2022-12-15 23:54] LABS: Sodium 126 mmol/L (137-145)
[2022-12-16] VITALS (18 sets, daily range): BP systolic 119–135; BP diastolic 49–52; PULSE 72–85; RESP 16–22; TEMP 36.7–37; O2SAT 95–98
[2022-12-16] MEDS: ALBUTEROL SULFATE NEB 2.5 MG/3 ML INH INHALATION ×4 (02:32→21:03)
[2022-12-16] MEDS: IPRATROPIUM BR 0.02% INH SOLN 0.5 MG/2.5 ML VIAL INHALATION ×4 (02:32→21:03)
[2022-12-16 06:30] LABS: Hematocrit 31.6 % (37.0-47.0); Hemoglobin 10.2 g/dL (12.0-15.0); Mean Corpuscular HGB Conc 32.3 g/dl (32-36); Mean Corpuscular Hemoglobin 29.1 pg (26-34); Platelet Count Result 194 k/mm3 (150-375); Red Blood Count 3.51 M/mm3 (4.2-5.4); Red Cell Distribution Width 13.2 % (11.5-14.5); White Blood Count 6.7 K/mm3 (4.5-10.0)
[2022-12-16 06:49] LABS: Anion Gap 4 mmol/L (8-16); Blood Urea Nitrogen 7 mg/dL (7-17); Calcium 8.2 mg/dL (8.4-10.2); Carbon Dioxide 34 mmol/L (22-30); Chloride 88 mmol/L (98-107); Estimated CRCL calculation 66 ml/min; Estimated Glomerular Filt Rate > 60; Glucose 83 mg/dL (65-110); Potassium 3.5 mmol/L (3.4-5.0); Sodium 126 mmol/L (137-145)
[2022-12-16] MEDS: SILVERGEL (ELTA) 45 ML 1 APPLIC TOPICAL (08:18)
[2022-12-16] MEDS: DOCUSATE SODIUM 100 MG CAPSULE PO ×2 (08:18→21:35)
[2022-12-16] MEDS: NEBIVOLOL HCL 5 MG TABLET 10 MG PO (08:18)
[2022-12-16] MEDS: guaiFENesin 12 HR 600 MG TABCR PO ×2 (08:18→21:35)
[2022-12-16] MEDS: ENOXAPARIN 40 MG/0.4 ML SYRINGE SUB-Q (08:18)
[2022-12-16] MEDS: polyethylene glycoL 3350 17 GM POWD.PACK PO (08:23)
[2022-12-16] MEDS: FLUTICASONE/SALMETEROL 115-21 MCG INHALER 1 PUFF 2 PUFF INHALATION ×2 (08:49→21:03)
[2022-12-16] MEDS: SODIUM CHLORIDE 0.9% IV 1,000 ML 50 ML IV CONT (10:24)
[2022-12-16 12:21] LABS: Sodium 126 mmol/L (137-145)
[2022-12-16] MEDS: AZITHROMYCIN 500 MG/NS 250 ML 500 MG/250 ML BAG 125 MG IVPB (12:48)
--- NOTE | 2022-12-16 16:01 | PM.IMPN ---
Progress Note: A&P Assessment and Plan (1) Community acquired pneumonia: Code(s): J18.9 - Pneumonia, unspecified organism Status: Acute Assessment and Plan: CXR on presentation showed upper lobe predominant chronic interstitial changes, follow-up CT showed multiple irregular pulmonary nodules, predominantly in the upper lobes, concerning for metastatic disease versus possibly infectious process. Continue with ceftriaxone and azithromycin. Sputum culture pending. Legionella and pneumococcal antigens pending. COVID and influenza negative. Supportive care to include bronchodilators, expectorants, incentive spirometry, Cornet valve (2) Pulmonary nodules: Code(s): R91.8 - Other nonspecific abnormal finding of lung field Status: Acute Assessment and Plan: She should have a short-term follow-up CT following appropriate treatment for pneumonia to ensure the multiple irregular pulmonary nodules noted on chest CT are stable or improving. She does have a history of bilateral breast cancer and there is a possibility that these nodules may be malignant. (3) Hyponatremia: Code(s): E87.1 - Hypo-osmolality and hyponatremia Status: Acute Assessment and Plan: The patient's sodium was 120 on presentation and her urine electrolytes are pre renal. Sodium improved at appropriate rate and now remaining stable, unchanged at 126. Goal increase of no more than 8 mEq/24 hours. Continue with fluid restriction diet at this time. Will restart gentle IV fluids. Trend sodium q6h. (4) Hypokalemia: Code(s): E87.6 - Hypokalemia Status: Acute Assessment and Plan: Resolved. Potassium 3.5. (5) Chronic respiratory failure with hypoxia, on home oxygen therapy: Code(s): J96.11 - Chronic respiratory failure with hypoxia; Z99.81 - Dependence on supplemental oxygen Status: Acute Assessment and Plan: At baseline oxygen requirement, 3 L at all times (6) Chronic obstructive pulmonary disease: Code(s): J44.9 - Chronic obstructive pulmonary disease, unspecified Status: Acute Assessment and Plan: Not in acute exacerbation. Bronchodilators available as needed (7) Hypertension: Code(s): I10 - Essential (primary) hypertension Status: Acute Assessment and Plan: Blood pressures are stable. Continue home meds (8) Tobacco dependence: Code(s): F17.200 - Nicotine dependence, unspecified, uncomplicated Status: Acute Assessment and Plan: Declines need for nicotine patch. Has intentions of quitting smoking. Subjective Date/time seen: 12/16/22 16:01 Interval history: Date of service: 12/16/2022 Adriane Eli is a 71-year-old female with a history of COPD, chronic respiratory failure on 3 L supplemental oxygen, tobacco dependence, hypertension, breast cancer who is seen in follow-up for pneumonia and hyponatremia. Feels more short of breath today. Endorses IVEIRA. Complains of cough productive of white phlegm. States that she feels exhausted. Denies fever, chills, nausea, vomiting. Denies numbness, tingling, dizziness, lightheadedness. No chest pain or palpitations. Review of Systems Review of Systems: All systems reviewed & are unremarkable except as noted in HPI and below Exam Narrative: General: Thin, chronically ill-appearing 71-year-old female, sitting up in bed, comfortable, NARD Neuro: awake, alert and oriented x4, speech clear, no focal neuro deficits noted HEENMT: normocephalic, atraumatic, EOMI, sclerae anicteric Respiratory: Diminished breath sounds bilaterally without crackles, rhonchi, wheezes, nonlabored breathing, wet cough Cardio: regular rate, regular rhythm with S1-S2 Abdomen: nondistended, normoactive bowel sounds, soft, nontender to palpation Extremities: no edema, erythema, or tenderness to palpation, DP pulses 2+ bilaterally Skin: no rashes or lesions, warm an
--- NOTE | 2022-12-16 16:09 | PCPTNOTE ---
Attempted to see pt for physical therapy evaluation, pt refused d/t just getting done working with OT. Will continue to follow.
[2022-12-16 17:53] LABS: Sodium 125 mmol/L (137-145)
[2022-12-17] VITALS (19 sets, daily range): BP systolic 113–156; BP diastolic 52–68; PULSE 73–92; RESP 16–20; TEMP 36–37.2; O2SAT 96–100
[2022-12-17] MEDS: IPRATROPIUM BR 0.02% INH SOLN 0.5 MG/2.5 ML VIAL INHALATION ×3 (01:38→13:54)
[2022-12-17] MEDS: ALBUTEROL SULFATE NEB 2.5 MG/3 ML INH INHALATION ×3 (01:38→13:55)
[2022-12-17 05:59] LABS: Hematocrit 29.9 % (37.0-47.0); Hemoglobin 9.6 g/dL (12.0-15.0); Mean Corpuscular HGB Conc 32.1 g/dl (32-36); Mean Corpuscular Hemoglobin 29.1 pg (26-34); Mean Corpuscular Volume 90.6 fl (80-100); Platelet Count Result 208 k/mm3 (150-375); Red Cell Distribution Width 13.2 % (11.5-14.5); White Blood Count 4.9 K/mm3 (4.5-10.0)
[2022-12-17 06:07] LABS: Anion Gap -1 mmol/L (8-16); Blood Urea Nitrogen 8 mg/dL (7-17); Carbon Dioxide 35 mmol/L (22-30); Chloride 94 mmol/L (98-107); Estimated CRCL calculation 75 ml/min; Estimated Glomerular Filt Rate > 60; Glucose 115 mg/dL (65-110); Potassium 3.7 mmol/L (3.4-5.0); Sodium 128 mmol/L (137-145)
[2022-12-17] MEDS: FLUTICASONE/SALMETEROL 115-21 MCG INHALER 1 PUFF 2 PUFF INHALATION (08:06)
[2022-12-17] MEDS: ENOXAPARIN 40 MG/0.4 ML SYRINGE SUB-Q (08:46)
[2022-12-17] MEDS: NEBIVOLOL HCL 5 MG TABLET 10 MG PO (08:46)
[2022-12-17] MEDS: guaiFENesin 12 HR 600 MG TABCR PO ×2 (08:46→20:23)
[2022-12-17] MEDS: DOCUSATE SODIUM 100 MG CAPSULE PO ×2 (08:46→20:22)
[2022-12-17] MEDS: SILVERGEL (ELTA) 45 ML 1 APPLIC TOPICAL (08:47)
[2022-12-17] MEDS: SODIUM CHLORIDE 0.9% IV 1,000 ML 50 ML IV CONT (08:47)
--- NOTE | 2022-12-17 09:45 | PCOTNOTE ---
Patient unavailable at this time for OT A.M. treatment session due to Patient having her PT evaluation performed. Will check back at a later time.
[2022-12-17 10:05] LABS: Legionella pneumophila Ag Ur Not Detected (Not Detected)
[2022-12-17 13:20] LABS: Sodium Urine Random 99 meq/L
[2022-12-17] MEDS: AZITHROMYCIN 500 MG/NS 250 ML 500 MG/250 ML BAG 250 MG IVPB (13:56)
--- NOTE | 2022-12-17 14:25 | PM.IMPN ---
Progress Note: A&P Assessment and Plan (1) Community acquired pneumonia: Code(s): J18.9 - Pneumonia, unspecified organism Status: Acute Assessment and Plan: CXR on presentation showed upper lobe predominant chronic interstitial changes, follow-up CT showed multiple irregular pulmonary nodules, predominantly in the upper lobes, concerning for metastatic disease versus possibly infectious process. Continue with ceftriaxone and azithromycin. Sputum culture pending. Legionella and pneumococcal antigens pending. COVID and influenza negative. Supportive care to include bronchodilators, expectorants, incentive spirometry, Cornet valve (2) Pulmonary nodules: Code(s): R91.8 - Other nonspecific abnormal finding of lung field Status: Acute Assessment and Plan: She should have a short-term follow-up CT following appropriate treatment for pneumonia to ensure the multiple irregular pulmonary nodules noted on chest CT are stable or improving. She does have a history of bilateral breast cancer and there is a possibility that these nodules may be malignant. (3) Hyponatremia: Code(s): E87.1 - Hypo-osmolality and hyponatremia Status: Acute Assessment and Plan: The patient's sodium was 120 on presentation and her urine electrolytes are pre renal. May have component of SIADH. Baseline sodium levels unknown. sodium improved at appropriate rate and now remaining stable. 128 today. Repeat urine sodium elevated at 99. Continue with fluid restriction diet. Continue to trend sodium. (4) Hypokalemia: Code(s): E87.6 - Hypokalemia Status: Acute Assessment and Plan: Resolved. Potassium 3.5. (5) Chronic respiratory failure with hypoxia, on home oxygen therapy: Code(s): J96.11 - Chronic respiratory failure with hypoxia; Z99.81 - Dependence on supplemental oxygen Status: Acute Assessment and Plan: At baseline oxygen requirement, 3 L at all times. O2 sats 96-98% today on chronic 3 L despite complaints of increased shortness of breath. (6) Chronic obstructive pulmonary disease: Code(s): J44.9 - Chronic obstructive pulmonary disease, unspecified Status: Acute Assessment and Plan: Not in acute exacerbation. Bronchodilators available as needed (7) Hypertension: Code(s): I10 - Essential (primary) hypertension Status: Acute Assessment and Plan: Blood pressures are stable. Continue home meds (8) Tobacco dependence: Code(s): F17.200 - Nicotine dependence, unspecified, uncomplicated Status: Acute Assessment and Plan: Declines need for nicotine patch. Has intentions of quitting smoking. Subjective Date/time seen: 12/17/22 14:25 Interval history: Date of service: 12/17/2022 Caridad Eli is a 71-year-old female with a history of COPD, chronic respiratory failure on 3 L supplemental oxygen, tobacco dependence, hypertension, breast cancer who is seen in follow-up for pneumonia and hyponatremia. She feels poorly today. She complains of feeling more short of breath, states that she just can not catch her breath and continues to request that her supplemental oxygen be turned up higher. Seems to be anxious. She endorses dyspnea on exertion. Endorses persistent cough, not able to expectorates. Denies nausea, vomiting, fever, chills. Review of Systems Review of Systems: All systems reviewed & are unremarkable except as noted in HPI and below Exam Narrative: General: Thin, chronically ill-appearing 71-year-old female, sitting up in bed, comfortable, NARD Neuro: awake, alert and oriented x4, speech clear, no focal neuro deficits noted HEENMT: normocephalic, atraumatic, EOMI, sclerae anicteric Respiratory: Diminished breath sounds bilaterally with faint rhonchi on the left, nonlabored breathing, wet cough Cardio: regular rate, regular rhythm with S1-S2 Abdomen: nondis
[2022-12-17 15:39] LABS: Sodium 130 mmol/L (137-145)
[2022-12-17 20:35] LABS: Osmolality, Urine 310 mOsm/kg (50-1200)
[2022-12-17 22:14] LABS: Sodium 129 mmol/L (137-145)
[2022-12-18] VITALS (14 sets, daily range): BP systolic 123–150; BP diastolic 54–56; PULSE 60–86; RESP 14–20; TEMP 36.3–36.6; O2SAT 98–99
[2022-12-18] MEDS: SODIUM CHLORIDE 0.9% IV 1,000 ML 50 ML IV CONT (04:35)
[2022-12-18 05:56] LABS: Hematocrit 32.1 % (37.0-47.0); Hemoglobin 10.5 g/dL (12.0-15.0); Mean Corpuscular HGB Conc 32.7 g/dl (32-36); Mean Corpuscular Hemoglobin 29.4 pg (26-34); Mean Corpuscular Volume 89.9 fl (80-100); Mean Platelet Volume 7.7 fl (7.4-10.4); Platelet Count Result 208 k/mm3 (150-375); Red Blood Count 3.57 M/mm3 (4.2-5.4); Red Cell Distribution Width 13.2 % (11.5-14.5); White Blood Count 3.9 K/mm3 (4.5-10.0)
[2022-12-18 06:09] LABS: Anion Gap 0 mmol/L (8-16); Blood Urea Nitrogen 4 mg/dL (7-17); Calcium 8.2 mg/dL (8.4-10.2); Carbon Dioxide 38 mmol/L (22-30); Chloride 90 mmol/L (98-107); Estimated CRCL calculation 100 ml/min; Estimated Glomerular Filt Rate > 60; Glucose 99 mg/dL (65-110); Magnesium 1.5 mg/dL (1.6-2.3); Potassium 3.8 mmol/L (3.4-5.0); Sodium 128 mmol/L (137-145)
[2022-12-18] MEDS: FLUTICASONE/SALMETEROL 115-21 MCG INHALER 1 PUFF 2 PUFF INHALATION (07:35)
[2022-12-18] MEDS: ALBUTEROL SULFATE NEB 2.5 MG/3 ML INH INHALATION ×2 (07:35→13:02)
[2022-12-18] MEDS: IPRATROPIUM BR 0.02% INH SOLN 0.5 MG/2.5 ML VIAL INHALATION ×2 (07:36→13:02)
[2022-12-18] MEDS: MAGNESIUM SULF 2 GM/WATER 50ML 2 GM/50 ML BAG IVPB (09:22)
[2022-12-18] MEDS: NEBIVOLOL HCL 5 MG TABLET 10 MG PO (09:23)
[2022-12-18] MEDS: guaiFENesin 12 HR 600 MG TABCR PO (09:24)
[2022-12-18] MEDS: polyethylene glycoL 3350 17 GM POWD.PACK PO (09:24)
[2022-12-18] MEDS: DOCUSATE SODIUM 100 MG CAPSULE PO ×2 (09:24→21:12)
[2022-12-18] MEDS: ENOXAPARIN 40 MG/0.4 ML SYRINGE SUB-Q (09:25)
[2022-12-18] MEDS: SILVERGEL (ELTA) 45 ML 1 APPLIC TOPICAL (09:25)
[2022-12-18 12:13] LABS: Sodium 127 mmol/L (137-145)
[2022-12-18] MEDS: AZITHROMYCIN 500 MG/NS 250 ML 500 MG/250 ML BAG 250 MG IVPB (12:58)
--- NOTE | 2022-12-18 14:12 | PM.IMPN ---
Progress Note: A&P Assessment and Plan (1) Community acquired pneumonia: Code(s): J18.9 - Pneumonia, unspecified organism Status: Acute Assessment and Plan: CXR on presentation showed upper lobe predominant chronic interstitial changes, follow-up CT showed multiple irregular pulmonary nodules, predominantly in the upper lobes, concerning for metastatic disease versus possibly infectious process. Continue with ceftriaxone and azithromycin. Sputum culture pending. Legionella and pneumococcal antigens pending. COVID and influenza negative. Supportive care to include bronchodilators, expectorants, incentive spirometry, Cornet valve (2) Pulmonary nodules: Code(s): R91.8 - Other nonspecific abnormal finding of lung field Status: Acute Assessment and Plan: She should have a short-term follow-up CT following appropriate treatment for pneumonia to ensure the multiple irregular pulmonary nodules noted on chest CT are stable or improving. She does have a history of bilateral breast cancer and there is a possibility that these nodules may be malignant. (3) Hyponatremia: Code(s): E87.1 - Hypo-osmolality and hyponatremia Status: Acute Assessment and Plan: The patient's sodium was 120 on presentation and her urine electrolytes are pre renal. May have component of SIADH. Baseline sodium levels unknown. sodium improved at appropriate rate and now remaining stable. Slight decline to 127 today. Will tighten fluid restriction to 1200 cc daily. Monitor sodium q6h. Consider Nephrology consultation if no improvement. (4) Hypokalemia: Code(s): E87.6 - Hypokalemia Status: Acute Assessment and Plan: Resolved. Potassium 3.8. (5) Chronic respiratory failure with hypoxia, on home oxygen therapy: Code(s): J96.11 - Chronic respiratory failure with hypoxia; Z99.81 - Dependence on supplemental oxygen Status: Acute Assessment and Plan: At baseline oxygen requirement, 3 L at all times. O2 sats remaining stable. (6) Chronic obstructive pulmonary disease: Code(s): J44.9 - Chronic obstructive pulmonary disease, unspecified Status: Acute Assessment and Plan: Not in acute exacerbation. Bronchodilators available as needed (7) Hypertension: Code(s): I10 - Essential (primary) hypertension Status: Acute Assessment and Plan: Blood pressures are stable. Continue home meds (8) Tobacco dependence: Code(s): F17.200 - Nicotine dependence, unspecified, uncomplicated Status: Acute Assessment and Plan: Declines need for nicotine patch. Has intentions of quitting smoking. Plan Mag 1.5. Begin supplementation continue to monitor Subjective Date/time seen: 12/18/22 14:12 Interval history: Date of service: 12/18/2022 Caridad Eli is a 71-year-old female with a history of COPD, chronic respiratory failure on 3 L supplemental oxygen, tobacco dependence, hypertension, breast cancer who is seen in follow-up for pneumonia and hyponatremia. She is still not feeling well today. She endorses some shortness of breath, but feels somewhat improved compared to yesterday. She has a cough that is productive of clear/white phlegm. She endorses nasal congestion. Also complains of constipation, reports that she had a very hard stool today. She feels that she is wheezing occasionally. She denies chest pain or palpitations. Review of Systems Review of Systems: All systems reviewed & are unremarkable except as noted in HPI and below Exam Narrative: General: Thin, chronically ill-appearing 71-year-old female, sitting up in bed, comfortable, NARD Neuro: awake, alert and oriented x4, speech clear, no focal neuro deficits noted HEENMT: normocephalic, atraumatic, EOMI, sclerae anicteric Respiratory: rhonchi in bilateral lung mccurdy, nonlabored breathing Cardio: regular rate, regular rhyt
[2022-12-18 16:01] LABS: Mycoplasma IgM Antibody Titer 187 U/mL (<770)
[2022-12-18 18:54] LABS: Sodium 124 mmol/L (137-145)
[2022-12-19] VITALS (12 sets, daily range): BP systolic 137–176; BP diastolic 51–60; PULSE 56–84; RESP 16–18; TEMP 36.5–36.9; O2SAT 97–100
[2022-12-19 01:30] LABS: Sodium 124 mmol/L (137-145)
[2022-12-19] MEDS: IPRATROPIUM BR 0.02% INH SOLN 0.5 MG/2.5 ML VIAL INHALATION (03:13)
[2022-12-19] MEDS: ALBUTEROL SULFATE NEB 2.5 MG/3 ML INH INHALATION (03:13)
[2022-12-19 05:31] LABS: Hematocrit 33.5 % (37.0-47.0); Hemoglobin 10.6 g/dL (12.0-15.0); Mean Corpuscular HGB Conc 31.6 g/dl (32-36); Mean Corpuscular Volume 91.8 fl (80-100); Mean Platelet Volume 7.7 fl (7.4-10.4); Platelet Count Result 209 k/mm3 (150-375); Red Blood Count 3.65 M/mm3 (4.2-5.4); Red Cell Distribution Width 12.9 % (11.5-14.5); White Blood Count 3.9 K/mm3 (4.5-10.0)
[2022-12-19 05:42] LABS: Anion Gap 1 mmol/L (8-16); Blood Urea Nitrogen 5 mg/dL (7-17); Calcium 8.6 mg/dL (8.4-10.2); Carbon Dioxide 37 mmol/L (22-30); Chloride 88 mmol/L (98-107); Estimated CRCL calculation 77 ml/min; Estimated Glomerular Filt Rate > 60; Glucose 95 mg/dL (65-110); Potassium 4.1 mmol/L (3.4-5.0); Sodium 126 mmol/L (137-145)
--- NOTE | 2022-12-19 07:35 | P.CDI_ITS ---
CDI Query Clarification Request BMI 15.0 Nutritional Diagnostic Statement Severe protein-calorie Malnutrition in the setting of chronic disease (COPD) related to increased protein calorie needs and inadequate po intake as evidence by patient report, low BMI 15, and muscle wasting and fat loss noted in NFPR Please refer to comprehensive nutrition assessment for further information. Please clarify severity of protein calorie malnutrition if known. * Mild * Moderate * Severe * Other/Unspecified <Molly Garcia RN - Last Filed: 12/19/22 07:39> Clarified Diagnosis Clarified Diagnosis: Severe protein calorie malnutrition <Nery Sanchez PA-C - Last Filed: 12/19/22 14:43>
[2022-12-19] MEDS: FLUTICASONE/SALMETEROL 115-21 MCG INHALER 1 PUFF 2 PUFF INHALATION ×2 (09:28→23:26)
[2022-12-19] MEDS: CEFEPIME 2 GM/NS 50 ML 2 GM/50 ML BAG IVPB ×2 (09:53→17:12)
[2022-12-19] MEDS: guaiFENesin 12 HR 600 MG TABCR PO ×2 (10:00→20:32)
[2022-12-19] MEDS: DOCUSATE SODIUM 100 MG CAPSULE PO ×2 (10:00→20:32)
[2022-12-19] MEDS: ENOXAPARIN 40 MG/0.4 ML SYRINGE SUB-Q (10:03)
--- NOTE | 2022-12-19 11:07 | PM.CNNEP ---
Assessment and Plan Assessment and plan (1) Hyponatremia: Code(s): E87.1 - Hypo-osmolality and hyponatremia Status: Acute Assessment and Plan: acute versus chronic versus acute on chronic?? no previous lab testing to compare to... presented with sodium of 120mmol/L improved to 130mmol/L (on 12/17/22) however, has down trended to 124 - 126mmol/L multiple risk factors of hyponatremia: lung disease/COPD pneumonia pulmonary nodules history of malignancy PRN diuretic therapy prerenal factors urine electrolytes are prerenal - s/p IVF agree with fluid restriction - may need to be more aggressive consider addition of salt tabs no need for 3% saline at this time follow-up on pending testing follow trend of sodium (2) Pneumonia: Code(s): J18.9 - Pneumonia, unspecified organism Status: Acute Assessment and Plan: suspected on admission sputum culture with Pseudomonas on antibiotics (3) Chronic obstructive pulmonary disease: Code(s): J44.9 - Chronic obstructive pulmonary disease, unspecified Status: Chronic Assessment and Plan: on supplemental oxygen, inhalers, and nebulizers continue supportive therapy (4) Hypertension: Code(s): I10 - Essential (primary) hypertension Status: Chronic Assessment and Plan: fluctuates as noted continue home BP medications follow trend of hemodynamics I will continue to follow the patient with you while she remains hospitalized to make further recommendations during her hospital course. Thank you for allowing me to participate in the care this patient. History of Present Illness Reason for Consult Consult date: 12/19/22 Reason for consult: hyponatremia Chief Complaint Chief complaint: hyponatremia pneumonia History of Present Illness Narrative: The patient is a 71-year-old female with a past medical history as outlined below who presented to [facility] Emergency room for further evaluation of shortness of breath. The patient has known chronic shortness of breath at baseline secondary to her severe /significant lung disease. However, she has noticed that her shortness of breath is worse than baseline for the last week or so if not longer. She has a chronic cough but this has become productive with a yellow sputum she has noted mild chills but no overt fevers. As her shortness of breath continued to worsen and seemed to be more significant on the day of presentation,, she called 911, EMS arrived, and subsequently transferred her to the emergency room for further assessment. Workup and evaluation in the emergency room demonstrated the patient to be hemodynamically stable and her oxygen saturations were stable on her baseline oxygen requirements. Routine blood tests were significant for a mildly elevated white blood cell count, a sodium of 120, normal electrolytes, and normal renal function. For further assessment of her shortness of breath, she underwent a CT scan of the chest with contrast which showed multiple irregular pulmonary nodules in the upper lobes which could represent metastatic disease versus infection along with findings of severe COPD and possible pneumonia at the left lung base. After appropriate cultures were obtained, she was started on IV antibiotic therapy and subsequently admitted to the hospital for further evaluation and therapy. Since her admission, her respiratory status has been tenuous but for the most part seems to have improved with current interventions. Her sodium level improved with gentle IV fluid hydration arguing a prerenal component to this issue but more recently has started to decline again. Renal consultation was requested due to her hyponatremia. Unfortunately, I am unclear if her hyponatremia is acute, chronic, or acute on chronic as I have no previous labs to compare to. However given her extensive risk factors for hyponatremia in the
[2022-12-19 12:17] LABS: Sodium 125 mmol/L (137-145)
[2022-12-19] MEDS: AZITHROMYCIN 250 MG TABLET 500 MG PO (12:42)
--- NOTE | 2022-12-19 14:17 | PCRCNOTE ---
pt refused 1400 breathing tx, RN notified
[2022-12-19] MEDS: ACETAMINOPHEN 325 MG TABLET 650 MG PO (14:33)
--- NOTE | 2022-12-19 14:43 | PM.IMPN ---
Progress Note: A&P Assessment and Plan (1) Community acquired pneumonia: Code(s): J18.9 - Pneumonia, unspecified organism Status: Acute Assessment and Plan: CXR on presentation showed upper lobe predominant chronic interstitial changes, follow-up CT showed multiple irregular pulmonary nodules, predominantly in the upper lobes, concerning for metastatic disease versus possibly infectious process. Sputum culture with growth of Pseudomonas 12/19: Stop ceftriaxone and transition to cefepime based on sputum culture Continue azithromycin to complete 5 day course Legionella and mycoplasma antigens negative COVID and influenza negative. Supportive care to include bronchodilators, expectorants, incentive spirometry, Cornet valve (2) Pulmonary nodules: Code(s): R91.8 - Other nonspecific abnormal finding of lung field Status: Acute Assessment and Plan: She should have a short-term follow-up CT following appropriate treatment for pneumonia to ensure the multiple irregular pulmonary nodules noted on chest CT are stable or improving. She does have a history of bilateral breast cancer and there is a possibility that these nodules may be malignant. (3) Hyponatremia: Code(s): E87.1 - Hypo-osmolality and hyponatremia Status: Acute Assessment and Plan: The patient's sodium was 120 on presentation and her urine electrolytes or pre renal. May have component of SIADH. Baseline sodium levels unknown. 12/17: Repeat urine sodium 99. Sodium 125 today. Continue with fluid restriction diet Consult to nephrology for further recommendations Monitor sodium Q 6 (4) Hypokalemia: Code(s): E87.6 - Hypokalemia Status: Acute Assessment and Plan: Resolved. Potassium 4.1. (5) Chronic respiratory failure with hypoxia, on home oxygen therapy: Code(s): J96.11 - Chronic respiratory failure with hypoxia; Z99.81 - Dependence on supplemental oxygen Status: Acute Assessment and Plan: At baseline oxygen requirement, 3 L at all times. O2 sats remaining stable. (6) Chronic obstructive pulmonary disease: Code(s): J44.9 - Chronic obstructive pulmonary disease, unspecified Status: Acute Assessment and Plan: Not in acute exacerbation. Bronchodilators available as needed (7) Hypertension: Code(s): I10 - Essential (primary) hypertension Status: Acute Assessment and Plan: Blood pressures are stable. Continue home meds (8) Tobacco dependence: Code(s): F17.200 - Nicotine dependence, unspecified, uncomplicated Status: Acute Assessment and Plan: Declines need for nicotine patch. Has intentions of quitting smoking. Subjective Date/time seen: 12/19/22 14:43 Interval history: Date of service: 12/19/2022 Caridad Eli is a 71-year-old female with a history of COPD, chronic respiratory failure on 3 L supplemental oxygen, tobacco dependence, hypertension, breast cancer who is seen in follow-up for pneumonia and hyponatremia. Patient states that she think she is starting to feel better. She endorses a concerned that she is ?holding too much air. ? She believes that when she is exhaling she is not able to release all the air she has inhaled. She continues to endorse cough but states that is not as productive today, she is not in to Rate and feels of phlegm is stuck in her throat. She denies nausea, vomiting, fever, chills, dizziness, lightheadedness. Review of Systems Review of Systems: All systems reviewed & are unremarkable except as noted in HPI and below Exam Narrative: General: Thin, chronically ill-appearing 71-year-old female, sitting up in bed, comfortable, NARD Neuro: awake, alert and oriented x4, speech clear, no focal neuro deficits noted HEENMT: normocephalic, atraumatic, EOMI, sclerae anicteric Respiratory: Bibasilar rhonchi, nonlabored breathing, wet
[2022-12-19] MEDS: SILVERGEL (ELTA) 45 ML 1 APPLIC TOPICAL (17:13)
[2022-12-19] MEDS: NEBIVOLOL HCL 5 MG TABLET 10 MG PO (17:19)
[2022-12-19 19:56] LABS: Magnesium 1.7 mg/dL (1.6-2.3); Sodium 125 mmol/L (137-145)
[2022-12-20] VITALS (23 sets, daily range): BP systolic 105–162; BP diastolic 49–68; PULSE 61–88; RESP 14–18; TEMP 36.6–36.8; O2SAT 94–99
[2022-12-20] MEDS: CEFEPIME 2 GM/NS 50 ML 2 GM/50 ML BAG IVPB ×3 (00:54→17:18)
[2022-12-20] MEDS: LEVALBUTEROL NEB 1.25 MG/3 ML INHALATION ×4 (01:56→20:43)
[2022-12-20] MEDS: IPRATROPIUM BR 0.02% INH SOLN 0.5 MG/2.5 ML VIAL INHALATION ×4 (01:56→20:43)
[2022-12-20 05:45] LABS: Hematocrit 30.4 % (37.0-47.0); Hemoglobin 9.8 g/dL (12.0-15.0); Mean Corpuscular HGB Conc 32.2 g/dl (32-36); Mean Corpuscular Volume 89.9 fl (80-100); Mean Platelet Volume 7.6 fl (7.4-10.4); Platelet Count Result 196 k/mm3 (150-375); Red Blood Count 3.38 M/mm3 (4.2-5.4); Red Cell Distribution Width 12.8 % (11.5-14.5); White Blood Count 4.3 K/mm3 (4.5-10.0)
[2022-12-20 05:58] LABS: Blood Urea Nitrogen 7 mg/dL (7-17); Calcium 8.5 mg/dL (8.4-10.2); Carbon Dioxide > 40 mmol/L (22-30); Chloride 88 mmol/L (98-107); Estimated CRCL calculation 74 ml/min; Estimated Glomerular Filt Rate > 60; Glucose 110 mg/dL (65-110); Sodium 128 mmol/L (137-145)
[2022-12-20] MEDS: FLUTICASONE/SALMETEROL 115-21 MCG INHALER 1 PUFF 2 PUFF INHALATION ×2 (08:03→20:43)
[2022-12-20] MEDS: DOCUSATE SODIUM 100 MG CAPSULE PO ×2 (08:55→20:57)
[2022-12-20] MEDS: ENOXAPARIN 40 MG/0.4 ML SYRINGE SUB-Q (08:55)
[2022-12-20] MEDS: guaiFENesin 12 HR 600 MG TABCR PO ×2 (08:55→20:57)
[2022-12-20] MEDS: polyethylene glycoL 3350 17 GM POWD.PACK PO (08:59)
[2022-12-20 09:01] LABS: Magnesium 1.7 mg/dL (1.6-2.3)
[2022-12-20] MEDS: MAGNESIUM OXIDE 400 MG TABLET PO (09:33)
[2022-12-20] MEDS: SILVERGEL (ELTA) 45 ML 1 APPLIC TOPICAL (09:33)
--- NOTE | 2022-12-20 11:31 | PM.PNNEP ---
Progress Note: A&P Assessment and Plan (1) Hyponatremia: Code(s): E87.1 - Hypo-osmolality and hyponatremia Status: Acute Assessment and Plan: acute versus chronic versus acute on chronic?? no previous lab testing to compare to...however, suspicion falls on chronicity presented with sodium of 120mmol/L improved to 130mmol/L (on 12/17/22) then trended to 124 - 126mmol/L now back up to 128mmol/L multiple risk factors of hyponatremia: lung disease/COPD pneumonia pulmonary nodules history of malignancy PRN diuretic therapy prerenal factors urine electrolytes are prerenal - s/p IVF agree with fluid restriction consider addition of salt tabs if sodium drops again no need for 3% saline at this time follow-up on pending testing follow trend of sodium (2) Pneumonia: Code(s): J18.9 - Pneumonia, unspecified organism Status: Acute Assessment and Plan: suspected on admission sputum culture with Pseudomonas on antibiotics (3) Chronic obstructive pulmonary disease: Code(s): J44.9 - Chronic obstructive pulmonary disease, unspecified Status: Chronic Assessment and Plan: on supplemental oxygen, inhalers, and nebulizers continue supportive therapy (4) Hypertension: Code(s): I10 - Essential (primary) hypertension Status: Chronic Assessment and Plan: fluctuates as noted continue home BP medications follow trend of hemodynamics Will continue to follow. Subjective Date/time seen: 12/20/22 11:31 Interval history: ; sFollow-up for hyponatremia. Slow and ongoing improvement noted with her breathing; appetite seems to be improving as well; sodium better as well with current interventions; no acute distress voiced at the time of my visit. Exam Narrative: General: chronically ill appearinc female in NAD Heart: normal S1 and S2; no rub Lungs: coarse breath sounds throughout Abdomen: soft, nontender, nondistended, positive bowel sounds Extremities: no cyanosis or clubbing; trace edema Skin: warm and dry Objective Data Vital Signs Vital Signs: Vital Signs Temp Pulse Resp BP Pulse Ox O2 Del Method O2 Flow Rate 12/20/22 08:00 77 12/20/22 09:00 97 Nasal Cannula 3 12/20/22 08:54 84 14 162/60 H 97 12/20/22 08:17 81 12/20/22 08:05 94 Nasal Cannula 3 12/20/22 08:04 78 06/27/23 07:54 97.9 F 74 18 152/65 H 96 12/20/22 05:37 98.1 F 74 18 137/52 L 98 12/20/22 04:00 67 12/20/22 01:58 75 12/20/22 00:00 61 12/19/22 20:00 98 Nasal Cannula 3 12/19/22 20:00 63 12/19/22 19:31 97.8 F 66 18 137/58 L 98 12/19/22 16:00 66 12/19/22 17:19 74 12/19/22 14:01 97.7 F 78 17 150/56 H 97 Intake/Output Intake/Output: Intake & Output 12/17/22 12/18/22 12/19/22 12/20/22 23:59 23:59 23:59 23:59 Intake Total 2009 2660 820 780 Output Total 1400 2150 500 500 Balance 610 510 320 280 Meds/Results Medications: Active Medications Generic Name Dose Route Start Last Admin Trade Name Freq PRN Reason Stop Dose Admin Acetaminophen 650 mg 12/14/22 23:34 12/19/22 14:33 Acetaminophen 325 Mg Tablet PO 650 mg Q6H PRN Administration Mild Pain (1-3) or Fever Diltiazem HCl 240 mg 12/15/22 09:00 12/20/22 08:55 Diltiazem Hcl Cd 240 Mg Cap.Er.24h PO 240 mg DAILY PK Administration Docusate Sodium 100 mg 12/15/22 21:00 12/20/22 08:55 Docusate Sodium 100 Mg Capsule PO 100 mg Q12HR PK Administration Enoxaparin Sodium 40 mg 12/15/22 09:00 12/20/22 08:55 Enoxaparin 40 Mg/0.4 Ml Syringe SUB-Q 40 mg DAILY PK Administration Guaifenesin 600 mg 12/15/22 21:00 12/20/22 08:55 Guaifenesin 12 Hr 600 Mg Tabcr PO 600 mg Q12HR PK Administration Cefepime HCl 2 gm in 50 mls @ 100 mls/hr 12/19/22 09:00 12/20/22 09:25 Maxipime 2 Gm/Ns 50 Ml
--- NOTE | 2022-12-20 11:31 | P.PNNP_ITS ---
Progress Note: A&P Assessment and Plan (1) Hyponatremia: Code(s): E87.1 - Hypo-osmolality and hyponatremia Status: Acute Assessment and Plan: * acute versus chronic versus acute on chronic?? * no previous lab testing to compare to...however, suspicion falls on chronicity * presented with sodium of 120mmol/L * improved to 130mmol/L (on 12/17/22) * then trended to 124 - 126mmol/L * now back up to 128mmol/L * multiple risk factors of hyponatremia: * lung disease/COPD * pneumonia * pulmonary nodules * history of malignancy * PRN diuretic therapy * prerenal factors * urine electrolytes are prerenal - s/p IVF * agree with fluid restriction * consider addition of salt tabs if sodium drops again * no need for 3% saline at this time * follow-up on pending testing * follow trend of sodium (2) Pneumonia: Code(s): J18.9 - Pneumonia, unspecified organism Status: Acute Assessment and Plan: * suspected on admission * sputum culture with Pseudomonas * on antibiotics (3) Chronic obstructive pulmonary disease: Code(s): J44.9 - Chronic obstructive pulmonary disease, unspecified Status: Chronic Assessment and Plan: * on supplemental oxygen, inhalers, and nebulizers * continue supportive therapy (4) Hypertension: Code(s): I10 - Essential (primary) hypertension Status: Chronic Assessment and Plan: * fluctuates as noted * continue home BP medications * follow trend of hemodynamics Will continue to follow. Subjective Date/time seen: 12/20/22 11:31 Interval history: ; sFollow-up for hyponatremia. Slow and ongoing improvement noted with her breathing; appetite seems to be improving as well; sodium better as well with current interventions; no acute distress voiced at the time of my visit. Exam Narrative: General: chronically ill appearinc female in NAD Heart: normal S1 and S2; no rub Lungs: coarse breath sounds throughout Abdomen: soft, nontender, nondistended, positive bowel sounds Extremities: no cyanosis or clubbing; trace edema Skin: warm and dry Objective Data Vital Signs Vital Signs: Vital Signs Temp Pulse Resp BP Pulse Ox O2 Del Method O2 Flow Rate 12/20/22 08:00 77 12/20/22 09:00 97 Nasal Cannula 3 12/20/22 08:54 84 14 162/60 H 97 12/20/22 08:17 81 12/20/22 08:05 94 Nasal Cannula 3 12/20/22 08:04 78 12/20/22 07:54 97.9 F 74 18 152/65 H 96 12/20/22 05:37 98.1 F 74 18 137/52 L 98 12/20/22 04:00 67 12/20/22 01:58 75 12/20/22 00:00 61 12/19/22 20:00 98 Nasal Cannula 3 12/19/22 20:00 63 12/19/22 19:31 97.8 F 66 18 137/58 L 98 12/19/22 16:00 66 12/19/22 17:19 74 12/19/22 14:01 97.7 F 78 17 150/56 H 97 Intake/Output Intake/Output: Intake & Output 12/17/22 12/18/22 12/19/22 12/20/22 23:59 23:59 23:59 23:59 Intake Total 2009 2660 820 780 Output Total 1400 2150 500 500 Balance 610 510 320 280 Meds/Results Medications: Active Medications Generic Name Do
[2022-12-20 13:19] LABS: Sodium 128 mmol/L (137-145)
--- NOTE | 2022-12-20 15:12 | PM.IMPN ---
Progress Note: A&P Assessment and Plan (1) Community acquired pneumonia: Code(s): J18.9 - Pneumonia, unspecified organism Status: Acute Assessment and Plan: CXR on presentation showed upper lobe predominant chronic interstitial changes, follow-up CT showed multiple irregular pulmonary nodules, predominantly in the upper lobes, concerning for metastatic disease versus possibly infectious process. Sputum culture with growth of Pseudomonas 12/19: Stopped ceftriaxone and transitioned to cefepime based on sputum culture Completed 5 days of azithromycin Legionella and mycoplasma antigens negative COVID and influenza negative. Supportive care to include bronchodilators, expectorants, incentive spirometry, Cornet valve (2) Pulmonary nodules: Code(s): R91.8 - Other nonspecific abnormal finding of lung field Status: Acute Assessment and Plan: She should have a short-term follow-up CT following appropriate treatment for pneumonia to ensure the multiple irregular pulmonary nodules noted on chest CT are stable or improving. She does have a history of bilateral breast cancer and there is a possibility that these nodules may be malignant. Pt reports that she has a history of pulmonary nodules that come and go for which she follows with pulmonology (3) Hyponatremia: Code(s): E87.1 - Hypo-osmolality and hyponatremia Status: Acute Assessment and Plan: The patient's sodium was 120 on presentation and her urine electrolytes are pre renal. May have component of SIADH. Baseline sodium levels unknown. 12/17: Repeat urine sodium 99. Sodium improved to 128 today, remaining stable Continue with fluid restriction diet Appreciate nephrology consultation and recommendations Monitor sodium q8h (4) Hypokalemia: Code(s): E87.6 - Hypokalemia Status: Acute Assessment and Plan: Resolved. Potassium 4.0 (5) Chronic respiratory failure with hypoxia, on home oxygen therapy: Code(s): J96.11 - Chronic respiratory failure with hypoxia; Z99.81 - Dependence on supplemental oxygen Status: Acute Assessment and Plan: At baseline oxygen requirement, 3 L at all times. O2 sats remaining stable. (6) Chronic obstructive pulmonary disease: Code(s): J44.9 - Chronic obstructive pulmonary disease, unspecified Status: Acute Assessment and Plan: Not in acute exacerbation. Bronchodilators available as needed (7) Hypertension: Code(s): I10 - Essential (primary) hypertension Status: Acute Assessment and Plan: Blood pressures are stable. Continue home meds (8) Tobacco dependence: Code(s): F17.200 - Nicotine dependence, unspecified, uncomplicated Status: Acute Assessment and Plan: Declines need for nicotine patch. Has intentions of quitting smoking. Subjective Date/time seen: 12/20/22 15:12 Interval history: Date of service: 12/20/2022 Caridad Eli is a 71-year-old female with a history of COPD, chronic respiratory failure on 3 L supplemental oxygen, tobacco dependence, hypertension, breast cancer who is seen in follow-up for pneumonia and hyponatremia. She states that her breathing is better today. Her cough is improved and she feels that she is getting up more phlegm. She endorses weakness. She is having trouble getting comfortable in the bed. She denies dizziness or lightheadedness. No fevers or chills. States her appetite is improving. Review of Systems Review of Systems: All systems reviewed & are unremarkable except as noted in HPI and below Exam Narrative: General: Thin, chronically ill-appearing 71-year-old female, sitting up in bed, comfortable, NARD Neuro: awake, alert and oriented x4, speech clear, no focal neuro deficits noted HEENMT: normocephalic, atraumatic, EOMI, sclerae anicteric Respiratory: Bibasilar rhonchi, nonlabored breathing Card
[2022-12-20] MEDS: ACETAMINOPHEN 325 MG TABLET 650 MG PO (17:17)
[2022-12-20] MEDS: NEBIVOLOL HCL 5 MG TABLET 10 MG PO (17:19)
[2022-12-20 21:11] LABS: Sodium 126 mmol/L (137-145)
[2022-12-21] VITALS (19 sets, daily range): BP systolic 111–142; BP diastolic 51–94; PULSE 71–89; RESP 17–20; TEMP 36.6–36.8; O2SAT 98–100
[2022-12-21] MEDS: CEFEPIME 2 GM/NS 50 ML 2 GM/50 ML BAG IVPB ×2 (01:54→08:50)
[2022-12-21] MEDS: LEVALBUTEROL NEB 1.25 MG/3 ML INHALATION ×3 (02:20→14:05)
[2022-12-21] MEDS: IPRATROPIUM BR 0.02% INH SOLN 0.5 MG/2.5 ML VIAL INHALATION ×3 (02:20→14:05)
[2022-12-21 05:40] LABS: Hematocrit 30.7 % (37.0-47.0); Hemoglobin 9.7 g/dL (12.0-15.0); Mean Corpuscular HGB Conc 31.6 g/dl (32-36); Mean Corpuscular Hemoglobin 29.1 pg (26-34); Mean Corpuscular Volume 92.2 fl (80-100); Mean Platelet Volume 7.6 fl (7.4-10.4); Platelet Count Result 197 k/mm3 (150-375); Red Blood Count 3.33 M/mm3 (4.2-5.4); Red Cell Distribution Width 13.3 % (11.5-14.5); White Blood Count 4.3 K/mm3 (4.5-10.0)
[2022-12-21 05:44] LABS: Legionella pneumophila Ag Ur Not Detected (Not Detected)
[2022-12-21 05:56] LABS: Blood Urea Nitrogen 8 mg/dL (7-17); Calcium 8.5 mg/dL (8.4-10.2); Carbon Dioxide > 40 mmol/L (22-30); Chloride 89 mmol/L (98-107); Estimated CRCL calculation 76 ml/min; Estimated Glomerular Filt Rate > 60; Glucose 101 mg/dL (65-110); Magnesium 1.8 mg/dL (1.6-2.3); Potassium 4.1 mmol/L (3.4-5.0); Sodium 128 mmol/L (137-145)
[2022-12-21] MEDS: guaiFENesin 12 HR 600 MG TABCR PO ×2 (08:50→20:07)
[2022-12-21] MEDS: ENOXAPARIN 40 MG/0.4 ML SYRINGE SUB-Q (08:50)
[2022-12-21] MEDS: DOCUSATE SODIUM 100 MG CAPSULE PO ×2 (08:50→20:07)
[2022-12-21] MEDS: MAGNESIUM OXIDE 400 MG TABLET PO (08:50)
[2022-12-21] MEDS: SILVERGEL (ELTA) 45 ML 1 APPLIC TOPICAL (08:51)
[2022-12-21] MEDS: ACETAMINOPHEN 325 MG TABLET 650 MG PO (08:55)
--- NOTE | 2022-12-21 13:45 | PM.IMPN ---
Progress Note: A&P Assessment and Plan (1) Pulmonary nodules: Code(s): R91.8 - Other nonspecific abnormal finding of lung field Status: Acute Assessment and Plan: Imaging findings. Patient has pulmonology as an o/p. Will need repeat imaging once infection clears. There is a history of breast cancer and a smoking history - close f/u is absolutely essential. (2) Hypertension: Code(s): I10 - Essential (primary) hypertension Status: Acute Assessment and Plan: Stable. (3) Hyponatremia: Code(s): E87.1 - Hypo-osmolality and hyponatremia Status: Acute Assessment and Plan: Question SIADH 2/2 pneumonia. Stable sodium in the 126-128 range. On fluid restriction with nephrology consultation. As generally stable will change to q12h checks, then likely daily ongoing. (4) Community acquired pneumonia: Code(s): J18.9 - Pneumonia, unspecified organism Status: Acute Assessment and Plan: Pseudomonas, levaquin susceptible and will change abx today. Final dose should be 12/25/22. High risk patient d/t severe chronic hypoxic resp. failure, will need close o/p f/u upon discharge. (5) Chronic respiratory failure with hypoxia, on home oxygen therapy: Code(s): J96.11 - Chronic respiratory failure with hypoxia; Z99.81 - Dependence on supplemental oxygen Status: Acute Assessment and Plan: Continuing on home 3L, recently was 2L as an o/p but needed increase. (6) Chronic obstructive pulmonary disease: Code(s): J44.9 - Chronic obstructive pulmonary disease, unspecified Status: Acute Assessment and Plan: PRN bronchodilators, not acutely exacerbated at this time. Time Spent With Patient Time: >30 minutes spent with patient. Subjective Date/time seen: 12/21/22 13:45 Interval history: Patient presented 12/14/22 with findings of pneumonia on imaging. Sputum cultures grew out pseudomonas and patient was changed to cefepime on 12/19. Sensitivities resulted today, sensitive to quinolones as well. Today, the patient has a fair appetite and denies new concerns. She does note that she drinks 3-4 cups of water daily, but doesn't feel that she overdoes it . Denies pain. Review of Systems Review of Systems: All systems reviewed & are unremarkable except as noted in HPI and below Exam Narrative: GENERAL APPEARANCE: Appears to be in no acute distress. HEAD: normocephalic atraumatic EYES: PERRL, EOMI. Vision grossly intact. ENT: Hearing grossly intact, no nasal discharge NECK: Neck supple, trachea midline. CARDIAC: Normal S1/S2. Rhythm is regular. No murmurs, rubs, or gallops. No cyanosis or pallor. Extremities are warm and well perfused. LUNGS: Markedly diminished throughout. Mild exp. wheezes in the upper lobes.. Respirations even and unlabored. ABDOMEN: BS positive x 4 quadrants. Soft, nondistended, nontender. No guarding or rebound. MSK: No joint tenderness/swelling, fair strength in all extremities. PERIPHERAL VASCULAR: Peripheral pulses palpable. Normal perfusion, cap refill <2 seconds. No edema. NEURO: Follows commands. No focal deficits. SKIN: [place] without lesions or eruptions. PSYCH: Stable, no paranoia or delusional thinking. Objective Data Vital Signs Vital Signs: Vital Signs - 24 hr 12/20/22 14:43 12/20/22 16:00 12/20/22 17:19 Temperature 98.0 F Pulse Rate 86 88 81 Respiratory Rate 18 Blood Pressure 116/68 Pulse Oximetry 97 Oxygen Delivery Oxygen Flow Rate Fraction of Inspired Oxygen 12/20/22 18:17 12/20/22 19:36 12/20/22 20:43 Temperature 98.0 F 98.2 F Pulse Rate 70 69 Respiratory Rate 18 18 Blood Pressure 105/49 L Pulse Oximetry 99 Oxygen Delivery Oxygen Flow Rate Fraction of Inspired Oxygen 12/20/22 20:46 12/20/22 20:59 12/20/22 20:00 Temperature Pulse Rate 69 72 67 Respiratory Rate 18 Blood Pressure Pulse Oximetry 99 Oxygen Delivery Nasal Cannula
--- NOTE | 2022-12-21 14:42 | P.PNNP_ITS ---
Progress Note: A&P Assessment and Plan (1) Hyponatremia: Code(s): E87.1 - Hypo-osmolality and hyponatremia Status: Acute Assessment and Plan: * acute versus chronic versus acute on chronic?? * no previous lab testing to compare to...however, suspicion falls on chronicity * presented with sodium of 120mmol/L * improved to 130mmol/L (on 12/17/22) * then trended to 124 - 126mmol/L * now back up to 128mmol/L * multiple risk factors of hyponatremia: * lung disease/COPD * pneumonia * pulmonary nodules * history of malignancy * PRN diuretic therapy * prerenal factors * urine electrolytes are prerenal - s/p IVF * agree with fluid restriction * consider addition of salt tabs if sodium drops again * no need for 3% saline at this time * follow-up on pending testing * follow trend of sodium (2) Pneumonia: Code(s): J18.9 - Pneumonia, unspecified organism Status: Acute Assessment and Plan: * suspected on admission * sputum culture with Pseudomonas * on antibiotics (3) Chronic obstructive pulmonary disease: Code(s): J44.9 - Chronic obstructive pulmonary disease, unspecified Status: Chronic Assessment and Plan: * on supplemental oxygen, inhalers, and nebulizers * continue supportive therapy (4) Hypertension: Code(s): I10 - Essential (primary) hypertension Status: Chronic Assessment and Plan: * reasonable control * continue home BP medications * follow trend of hemodynamics Will continue to follow. Subjective Date/time seen: 12/21/22 14:42 Interval history: Follow-up for hyponatremia. Continues to make improvement in general -- appetite seems to be improving and sodium remains relatively stable with current interventions; no other issues/events overnight or earlier this morning. Exam Narrative: General: chronically ill appearinc female in NAD Heart: normal S1 and S2; no rub Lungs: coarse breath sounds throughout Abdomen: soft, nontender, nondistended, positive bowel sounds Extremities: no cyanosis or clubbing; trace edema Skin: warm and intact Objective Data Vital Signs Vital Signs: Vital Signs Temp Pulse Resp BP Pulse Ox O2 Del Method O2 Flow Rate 12/21/22 14:28 97.9 F 82 20 133/51 L 98 12/21/22 14:21 81 20 12/21/22 14:05 77 20 12/21/22 08:00 79 20 98 Nasal Cannula 3 12/21/22 09:11 79 98 Nasal Cannula 3 12/21/22 09:09 83 20 12/21/22 08:55 80 20 12/21/22 05:54 98.2 F 76 18 116/94 H 99 12/21/22 04:00 85 12/21/22 02:18 71 18 12/21/22 02:10 75 18 12/21/22 00:00 71 12/20/22 20:00 99 Nasal Cannula 3 12/20/22 20:00 67 12/20/22 20:59 72 18 12/20/22 20:46 69 99 Nasal Cannula 3 12/20/22 20:43 69 18 12/20/22 19:36 98.2 F 70 18 105/49 L 99 12/20/22 18:17 98.0 F Intake/Output Intake/Output: Intake & Output 12/18/22 12/19/22 12/20/22 12/21/22 23:59 23:59 23:59 23:59 Intake Total 2660 820 1290 390 Output Total 2150 500 500 400 Balance 510 320 790 -10 Meds/Results Medications
--- NOTE | 2022-12-21 14:42 | PM.PNNEP ---
Progress Note: A&P Assessment and Plan (1) Hyponatremia: Code(s): E87.1 - Hypo-osmolality and hyponatremia Status: Acute Assessment and Plan: acute versus chronic versus acute on chronic?? no previous lab testing to compare to...however, suspicion falls on chronicity presented with sodium of 120mmol/L improved to 130mmol/L (on 12/17/22) then trended to 124 - 126mmol/L now back up to 128mmol/L multiple risk factors of hyponatremia: lung disease/COPD pneumonia pulmonary nodules history of malignancy PRN diuretic therapy prerenal factors urine electrolytes are prerenal - s/p IVF agree with fluid restriction consider addition of salt tabs if sodium drops again no need for 3% saline at this time follow-up on pending testing follow trend of sodium (2) Pneumonia: Code(s): J18.9 - Pneumonia, unspecified organism Status: Acute Assessment and Plan: suspected on admission sputum culture with Pseudomonas on antibiotics (3) Chronic obstructive pulmonary disease: Code(s): J44.9 - Chronic obstructive pulmonary disease, unspecified Status: Chronic Assessment and Plan: on supplemental oxygen, inhalers, and nebulizers continue supportive therapy (4) Hypertension: Code(s): I10 - Essential (primary) hypertension Status: Chronic Assessment and Plan: reasonable control continue home BP medications follow trend of hemodynamics Will continue to follow. Subjective Date/time seen: 12/21/22 14:42 Interval history: Follow-up for hyponatremia. Continues to make improvement in general -- appetite seems to be improving and sodium remains relatively stable with current interventions; no other issues/events overnight or earlier this morning. Exam Narrative: General: chronically ill appearinc female in NAD Heart: normal S1 and S2; no rub Lungs: coarse breath sounds throughout Abdomen: soft, nontender, nondistended, positive bowel sounds Extremities: no cyanosis or clubbing; trace edema Skin: warm and intact Objective Data Vital Signs Vital Signs: Vital Signs Temp Pulse Resp BP Pulse Ox O2 Del Method O2 Flow Rate 12/21/22 14:28 97.9 F 82 20 133/51 L 98 12/21/22 14:21 81 20 12/21/22 14:05 77 20 12/21/22 08:00 79 20 98 Nasal Cannula 3 12/21/22 09:11 79 98 Nasal Cannula 3 12/21/22 09:09 83 20 12/21/22 08:55 80 20 12/21/22 05:54 98.2 F 76 18 116/94 H 99 12/21/22 04:00 85 12/21/22 02:18 71 18 12/21/22 02:10 75 18 12/21/22 00:00 71 12/20/22 20:00 99 Nasal Cannula 3 12/20/22 20:00 67 12/20/22 20:59 72 18 12/20/22 20:46 69 99 Nasal Cannula 3 12/20/22 20:43 69 18 12/20/22 19:36 98.2 F 70 18 105/49 L 99 12/20/22 18:17 98.0 F Intake/Output Intake/Output: Intake & Output 12/18/22 12/19/22 12/20/22 12/21/22 23:59 23:59 23:59 23:59 Intake Total 2660 820 1290 390 Output Total 2150 500 500 400 Balance 510 320 790 -10 Meds/Results Medications: Active Medications Generic Name Dose Route Start Last Admin Trade Name Freq PRN Reason Stop Dose Admin Acetaminophen 650 mg 12/14/22 23:34 12/21/22 08:55 Acetaminophen 325 Mg Tablet PO 650 mg Q6H PRN Administration Mild Pain (1-3) or Fever Diltiazem HCl 240 mg 12/15/22 09:00 12/21/22 08:50 Diltiazem Hcl Cd 240 Mg Cap.Er.24h PO 240 mg DAILY PK Administration Docusate Sodium 100 mg 12/15/22 21:00 12/21/22 08:50 Docusate Sodium 100 Mg Capsule PO 100 mg Q12HR PK Administration Enoxaparin Sodium 40 mg 12/15/22 09:00 12/21/22 08:50 Enoxaparin 40 Mg/0.4 Ml Syringe SUB-Q 40 mg DAILY PK Administration Guaifenesin 600 mg 12/15/22 21:00 12/21/22 08:50 Guaifenesin 12 Hr 600 Mg Tabcr PO 600 mg Q12HR PK Administration Ipratropium [place] 0.5
[2022-12-21] MEDS: levoFLOXacin 750 MG TABLET PO (15:45)
[2022-12-21] MEDS: NEBIVOLOL HCL 5 MG TABLET 10 MG PO (17:37)
[2022-12-21 19:09] LABS: Sodium 126 mmol/L (137-145)
[2022-12-22] VITALS (19 sets, daily range): BP systolic 121–163; BP diastolic 57–66; PULSE 73–83; RESP 16–20; TEMP 36.7–37.1; O2SAT 96–98
[2022-12-22] MEDS: LEVALBUTEROL NEB 1.25 MG/3 ML INHALATION ×3 (01:55→13:06)
[2022-12-22] MEDS: IPRATROPIUM BR 0.02% INH SOLN 0.5 MG/2.5 ML VIAL INHALATION ×3 (01:55→13:06)
[2022-12-22 05:43] LABS: Hematocrit 29.1 % (37.0-47.0); Hemoglobin 9.5 g/dL (12.0-15.0); Mean Corpuscular HGB Conc 32.6 g/dl (32-36); Mean Corpuscular Hemoglobin 29.9 pg (26-34); Mean Corpuscular Volume 91.5 fl (80-100); Mean Platelet Volume 7.6 fl (7.4-10.4); Platelet Count Result 196 k/mm3 (150-375); Red Blood Count 3.18 M/mm3 (4.2-5.4); Red Cell Distribution Width 13.2 % (11.5-14.5); White Blood Count 4.4 K/mm3 (4.5-10.0)
[2022-12-22 05:57] LABS: Blood Urea Nitrogen 7 mg/dL (7-17); Calcium 8.5 mg/dL (8.4-10.2); Carbon Dioxide > 40 mmol/L (22-30); Chloride 87 mmol/L (98-107); Estimated CRCL calculation 63 ml/min; Estimated Glomerular Filt Rate > 60; Glucose 97 mg/dL (65-110); Potassium 4.5 mmol/L (3.4-5.0); Sodium 125 mmol/L (137-145)
[2022-12-22] MEDS: FLUTICASONE/SALMETEROL 115-21 MCG INHALER 1 PUFF 2 PUFF INHALATION (07:10)
[2022-12-22] MEDS: MAGNESIUM OXIDE 400 MG TABLET PO (09:13)
[2022-12-22] MEDS: guaiFENesin 12 HR 600 MG TABCR PO ×2 (09:13→20:42)
[2022-12-22] MEDS: SODIUM CHLORIDE 500 MG TABLET PO ×2 (09:13→16:28)
[2022-12-22] MEDS: DOCUSATE SODIUM 100 MG CAPSULE PO (09:13)
[2022-12-22] MEDS: ENOXAPARIN 40 MG/0.4 ML SYRINGE SUB-Q (09:14)
[2022-12-22] MEDS: SILVERGEL (ELTA) 45 ML 1 APPLIC TOPICAL (09:15)
--- NOTE | 2022-12-22 10:03 | PM.IMPN ---
Progress Note: A&P Assessment and Plan (1) Pulmonary nodules: Code(s): R91.8 - Other nonspecific abnormal finding of lung field Status: Acute Assessment and Plan: Abnormal imaging findings. Patient has pulmonology as an o/p. Will need repeat imaging once infection clears. There is a history of breast cancer and a smoking history - close f/u is absolutely essential. (2) Hypertension: Code(s): I10 - Essential (primary) hypertension Status: Acute Assessment and Plan: Stable generally in the 130/140 sbp range. (3) Hyponatremia: Code(s): E87.1 - Hypo-osmolality and hyponatremia Status: Acute Assessment and Plan: Question SIADH 2/2 pneumonia. Sodium has downtrended now at 125, which would be concerning for discharge. Nephrology has started oral nacl replacement which would certainly be appropriate if we are more convinced of SIADH. There is a fluid restriction in place. Will continue with q12h measurement. Would prefer to see uptrend and sodium >125 prior to discharge to ensure patient safety, certainly as she describes weakness which may be 2/2 to this. (4) Community acquired pneumonia: Code(s): J18.9 - Pneumonia, unspecified organism Status: Acute Assessment and Plan: Pseudomonas opn cx, levaquin susceptible and now on levaquin. Final dose should be 12/25/22. High risk patient d/t severe chronic hypoxic resp. failure, will need close o/p f/u upon discharge. (5) Chronic respiratory failure with hypoxia, on home oxygen therapy: Code(s): J96.11 - Chronic respiratory failure with hypoxia; Z99.81 - Dependence on supplemental oxygen Status: Acute Assessment and Plan: Continuing on home 3L, recently was 2L as an o/p but needed increase. Tolerating home oxygen well. (6) Chronic obstructive pulmonary disease: Code(s): J44.9 - Chronic obstructive pulmonary disease, unspecified Status: Acute Assessment and Plan: PRN bronchodilators, not acutely exacerbated at this time. Time Spent With Patient Time: >30 minutes with moderate decision making complexity Subjective Date/time seen: 12/22/22 10:03 Interval history: Patient presented 12/14/22 with findings of pneumonia on imaging. Sputum cultures grew out pseudomonas and patient was changed to cefepime on 12/19. Sensitivities resulted yesterday, sensitive to quinolones as well. Today, the patient is breathing easily after a breathing treatment. She has been assisting the staff with her own ADLs. She does note feeling weak. Review of Systems Review of Systems: All systems reviewed & are unremarkable except as noted in HPI and below All systems reviewed & are unremarkable except as noted in HPI and below Exam Narrative: GENERAL APPEARANCE: Appears to be in no acute distress. HEAD: normocephalic atraumatic EYES: PERRL, EOMI. Vision grossly intact. ENT: Hearing grossly intact, no nasal discharge NECK: Neck supple, trachea midline. CARDIAC: Normal S1/S2. Rhythm is regular. No murmurs, rubs, or gallops. No cyanosis or pallor. Extremities are warm and well perfused. LUNGS: Markedly diminished throughout. No wheezes today.. Respirations even and unlabored. ABDOMEN: BS positive x 4 quadrants. Soft, nondistended, nontender. No guarding or rebound. MSK: No joint tenderness/swelling, fair strength in all extremities. PERIPHERAL VASCULAR: Peripheral pulses palpable. Normal perfusion, cap refill <2 seconds. No edema. NEURO: Follows commands. No focal deficits. SKIN: [place] without lesions or eruptions. PSYCH: Stable, no paranoia or delusional thinking. Objective Data Vital Signs Vital Signs: Vital Signs - 24 hr 12/21/22 14:05 12/21/22 14:21 12/21/22 14:28 Temperature 97.9 F Pulse Rate 77 81 82 Respiratory Rate 20 20 20 Blood Pressure 133/51 L Pulse Oximetry 98 Oxygen Delivery Oxygen Flow Rate Fraction of Inspired Oxygen 12/21/22 17:37 12/21/22
--- NOTE | 2022-12-22 10:33 | PCNFU ---
Nutrition Follow-Up Complete: Severe Protein-Calorie Malnutrition in the setting of chronic disease (COPD) related to increased protein calorie needs and inadequte po intake as evidenced by pt report, low BMI of 15, and muscle wasting and fat loss noted in NFPE Goal: PO intake to remain 75% or greater for meals Patient is progressing towards goal. We will continue current goal. Pt current nutrition is Regular. Last recorded weight is 45.4 kg. Bowel Motility:+Bm reported 12/19 Labs Reviewed:Na 125, Hct 29.1,Hgb 9.5 Meds Noted:Mucinex, Lovenox Skin:WNL Additional Notes: Patient remains on a regular diet. Oral Intake has been fair 60-100% of most meals. Patient is not wanting the Ensure Pudding anymore but is willing to keep the Nutritional Ice cream (300 kcals/9 gms protein). Agree with diet orders. Monitor intake, wt, labs. Follow up in 7 days.
[2022-12-22] MEDS: levoFLOXacin 750 MG TABLET PO (14:42)
--- NOTE | 2022-12-22 14:49 | P.PNNP_ITS ---
Progress Note: A&P Assessment and Plan (1) Hyponatremia: Code(s): E87.1 - Hypo-osmolality and hyponatremia Status: Acute Assessment and Plan: * acute versus chronic versus acute on chronic?? * no previous lab testing to compare to...however, suspicion falls on chronicity * presented with sodium of 120mmol/L * improved to 130mmol/L (on 12/17/22) * then trended to 124 - 126mmol/L * now back up to 128mmol/L * multiple risk factors of hyponatremia: * lung disease/COPD * pneumonia * pulmonary nodules * history of malignancy * PRN diuretic therapy * prerenal factors * urine electrolytes are prerenal - s/p IVF * agree with fluid restriction - will try to be more aggressive * will add salt tablets * no need for 3% saline at this time * follow-up on pending testing (were they done??? -- may need to re-order) * follow trend of sodium (2) Pneumonia: Code(s): J18.9 - Pneumonia, unspecified organism Status: Acute Assessment and Plan: * suspected on admission * sputum culture with Pseudomonas * on antibiotics (3) Chronic obstructive pulmonary disease: Code(s): J44.9 - Chronic obstructive pulmonary disease, unspecified Status: Chronic Assessment and Plan: * on supplemental oxygen, inhalers, and nebulizers * continue supportive therapy (4) Hypertension: Code(s): I10 - Essential (primary) hypertension Status: Chronic Assessment and Plan: * reasonable control * continue home BP medications * follow trend of hemodynamics Will continue to follow. Subjective Date/time seen: 12/22/22 14:49 Interval history: Follow-up for hyponatremia. Breathing/respiratory status as well as appetite continue to slowly improve since admission; sodium level down by AM labs (although unclear why); other than mild weakness, no other acute complaints voiced. Exam Narrative: General: chronically ill appearinc female in NAD Heart: normal S1 and S2; no rub Lungs: coarse breath sounds throughout Abdomen: soft, nontender, nondistended, positive bowel sounds Extremities: no cyanosis or clubbing; trace edema Skin: no rash Objective Data Vital Signs Vital Signs: Vital Signs Temp Pulse Resp BP Pulse Ox O2 Del Method O2 Flow Rate 12/22/22 12:04 82 12/22/22 13:20 83 20 12/22/22 13:10 80 18 12/22/22 13:56 98.7 F 78 20 121/57 L 96 12/22/22 08:01 83 12/22/22 09:15 16 98 Nasal Cannula 3 12/22/22 10:49 81 16 156/62 H 98 12/22/22 09:42 98.0 F 83 16 163/65 H 97 12/22/22 07:10 80 20 12/22/22 07:10 77 18 12/22/22 07:10 77 18 97 Nasal Cannula 3 12/22/22 05:25 98.5 F 80 17 148/64 H 97 12/22/22 04:00 73 12/22/22 02:05 81 18 12/22/22 01:59 18 97 Nasal Cannula 3 12/22/22 01:57 81 18 12/22/22 00:00 79 12/21/22 23:51 142/58 H 12/21/22 20:00 84 12/21/22 20:00 85 17 100 Nasal Cannula 3 12/21/22 20:55 98.2 F 85 17 111/74 100 12/21/22 16:00 82 12/21/22 17:37 89 Intake/Output Intake/Output: Intake & Output 12/19/22 0
--- NOTE | 2022-12-22 14:49 | PM.PNNEP ---
Progress Note: A&P Assessment and Plan (1) Hyponatremia: Code(s): E87.1 - Hypo-osmolality and hyponatremia Status: Acute Assessment and Plan: acute versus chronic versus acute on chronic?? no previous lab testing to compare to...however, suspicion falls on chronicity presented with sodium of 120mmol/L improved to 130mmol/L (on 12/17/22) then trended to 124 - 126mmol/L now back up to 128mmol/L multiple risk factors of hyponatremia: lung disease/COPD pneumonia pulmonary nodules history of malignancy PRN diuretic therapy prerenal factors urine electrolytes are prerenal - s/p IVF agree with fluid restriction - will try to be more aggressive will add salt tablets no need for 3% saline at this time follow-up on pending testing (were they done??? -- may need to re-order) follow trend of sodium (2) Pneumonia: Code(s): J18.9 - Pneumonia, unspecified organism Status: Acute Assessment and Plan: suspected on admission sputum culture with Pseudomonas on antibiotics (3) Chronic obstructive pulmonary disease: Code(s): J44.9 - Chronic obstructive pulmonary disease, unspecified Status: Chronic Assessment and Plan: on supplemental oxygen, inhalers, and nebulizers continue supportive therapy (4) Hypertension: Code(s): I10 - Essential (primary) hypertension Status: Chronic Assessment and Plan: reasonable control continue home BP medications follow trend of hemodynamics Will continue to follow. Subjective Date/time seen: 12/22/22 14:49 Interval history: Follow-up for hyponatremia. Breathing/respiratory status as well as appetite continue to slowly improve since admission; sodium level down by AM labs (although unclear why); other than mild weakness, no other acute complaints voiced. Exam Narrative: General: chronically ill appearinc female in NAD Heart: normal S1 and S2; no rub Lungs: coarse breath sounds throughout Abdomen: soft, nontender, nondistended, positive bowel sounds Extremities: no cyanosis or clubbing; trace edema Skin: no rash Objective Data Vital Signs Vital Signs: Vital Signs Temp Pulse Resp BP Pulse Ox O2 Del Method O2 Flow Rate 12/22/22 12:04 82 12/22/22 13:20 83 20 12/22/22 13:10 80 18 12/22/22 13:56 98.7 F 78 20 121/57 L 96 12/22/22 08:01 83 12/22/22 09:15 16 98 Nasal Cannula 3 12/22/22 10:49 81 16 156/62 H 98 12/22/22 09:42 98.0 F 83 16 163/65 H 97 12/22/22 07:10 80 20 12/22/22 07:10 77 18 12/22/22 07:10 77 18 97 Nasal Cannula 3 12/22/22 05:25 98.5 F 80 17 148/64 H 97 12/22/22 04:00 73 12/22/22 02:05 81 18 12/22/22 01:59 18 97 Nasal Cannula 3 12/22/22 01:57 81 18 12/22/22 00:00 79 12/21/22 23:51 142/58 H 12/21/22 20:00 84 12/21/22 20:00 85 17 100 Nasal Cannula 3 12/21/22 20:55 98.2 F 85 17 111/74 100 12/21/22 16:00 82 12/21/22 17:37 89 Intake/Output Intake/Output: Intake & Output 12/19/22 12/20/22 12/21/22 12/22/22 23:59 23:59 23:59 23:59 Intake Total 820 1290 650 120 Output Total 500 687 063 6590 Balance 320 889 -58 -6654 Meds/Results Medications: Active Medications Generic Name Dose Route Start Last Admin Trade Name Freq PRN Reason Stop Dose Admin Acetaminophen 650 mg 12/14/22 23:34 12/21/22 08:55 Acetaminophen 325 Mg Tablet PO 650 mg Q6H PRN Administration Mild Pain (1-3) or Fever Diltiazem HCl 240 mg 12/15/22 09:00 12/22/22 09:13 Diltiazem Hcl Cd 240 Mg Cap.Er.24h PO 240 mg DAILY PK Administration Docusate Sodium 100 mg 12/15/22 21:00 12/22/22 09:13 Docusate Sodium 100 Mg Capsule PO 100 mg Q12HR PK Administration Enoxaparin Sodium 40 mg 12/15/22 09:00 12/22/22 09:14 Enoxaparin 40 Mg/0.4 Ml Syringe SUB-Q
[2022-12-22] MEDS: NEBIVOLOL HCL 5 MG TABLET 10 MG PO (17:21)
[2022-12-22 18:13] LABS: Sodium 124 mmol/L (137-145)
[2022-12-22] MEDS: SODIUM CHLORIDE 1 GM TABLET PO (18:39)
--- NOTE | 2022-12-22 19:17 | PCRCNOTE ---
Pt refused neb tx at this time. Pt says she wants the next neb tx at 02:00
[2022-12-22] MEDS: ACETAMINOPHEN 325 MG TABLET 650 MG PO (20:41)
[2022-12-23] VITALS (21 sets, daily range): BP systolic 128–143; BP diastolic 54–59; PULSE 68–91; RESP 16–20; TEMP 36.8–37.1; O2SAT 91–100
[2022-12-23] MEDS: LEVALBUTEROL NEB 1.25 MG/3 ML INHALATION ×4 (02:00→20:00)
[2022-12-23] MEDS: IPRATROPIUM BR 0.02% INH SOLN 0.5 MG/2.5 ML VIAL INHALATION ×4 (02:00→20:00)
[2022-12-23 05:31] LABS: Hematocrit 28.4 % (37.0-47.0); Hemoglobin 9.1 g/dL (12.0-15.0); Mean Corpuscular Hemoglobin 29.3 pg (26-34); Mean Corpuscular Volume 91.3 fl (80-100); Mean Platelet Volume 7.8 fl (7.4-10.4); Platelet Count Result 216 k/mm3 (150-375); Red Blood Count 3.11 M/mm3 (4.2-5.4); White Blood Count 3.9 K/mm3 (4.5-10.0)
[2022-12-23 05:40] LABS: Blood Urea Nitrogen 6 mg/dL (7-17); Calcium 8.3 mg/dL (8.4-10.2); Carbon Dioxide > 40 mmol/L (22-30); Chloride 85 mmol/L (98-107); Estimated CRCL calculation 76 ml/min; Estimated Glomerular Filt Rate > 60; Glucose 102 mg/dL (65-110); Potassium 4.3 mmol/L (3.4-5.0); Sodium 125 mmol/L (137-145)
[2022-12-23] MEDS: FLUTICASONE/SALMETEROL 115-21 MCG INHALER 1 PUFF 2 PUFF INHALATION ×2 (08:48→20:01)
[2022-12-23] MEDS: MAGNESIUM OXIDE 400 MG TABLET PO (09:56)
[2022-12-23] MEDS: ENOXAPARIN 40 MG/0.4 ML SYRINGE SUB-Q (09:56)
[2022-12-23] MEDS: guaiFENesin 12 HR 600 MG TABCR PO ×2 (09:56→20:35)
[2022-12-23] MEDS: SODIUM CHLORIDE 1 GM TABLET PO ×2 (09:57→16:34)
[2022-12-23] MEDS: SILVERGEL (ELTA) 45 ML 1 APPLIC TOPICAL (09:57)
[2022-12-23 10:12] LABS: Sodium 126 mmol/L (137-145)
[2022-12-23 12:56] LABS: NT Pro B Type Natriuretic Pept 697 pg/mL (19.9-100)
[2022-12-23] MEDS: FUROSEMIDE INJ 40 MG/4 ML VIAL IV PUSH (13:10)
--- NOTE | 2022-12-23 13:29 | PM.PNNEP ---
Progress Note: A&P Assessment and Plan (1) Hyponatremia: Code(s): E87.1 - Hypo-osmolality and hyponatremia Status: Acute Assessment and Plan: acute versus chronic versus acute on chronic?? no previous lab testing to compare to...however, suspicion falls on chronicity old records requested presented with sodium of 120mmol/L improved to 130mmol/L (on 12/17/22) then trended to 124 - 126mmol/L was up to 128mmol/L for a few days multiple risk factors of hyponatremia: lung disease/COPD pneumonia pulmonary nodules history of malignancy PRN diuretic therapy prerenal factors work-up and evaluation to date: TSH okay corisol okay SPEP and UPEP pending urine electrolytes prerenal (on admission) - s/p IVFs continue with fluid restriction for now added salt tablets - she is having difficult tolerating this intervention if he sodium improves, I suppose we can try to wean off no need for 3% saline at this time follow trend of sodium (2) Pneumonia: Code(s): J18.9 - Pneumonia, unspecified organism Status: Acute Assessment and Plan: suspected on admission sputum culture with Pseudomonas on antibiotics (3) Chronic obstructive pulmonary disease: Code(s): J44.9 - Chronic obstructive pulmonary disease, unspecified Status: Chronic Assessment and Plan: on supplemental oxygen, inhalers, and nebulizers continue supportive therapy (4) Hypertension: Code(s): I10 - Essential (primary) hypertension Status: Chronic Assessment and Plan: reasonable control continue home BP medications follow trend of hemodynamics Will continue to follow. Subjective Date/time seen: 12/23/22 13:29 Interval history: Follow-up for hyponatremia. Due to drop in sodium level yesterday, fluid restriction was changed to 1200cc/day and was started on salt tablets; sodium doing a bit better by recent check; does not like taking the salt tablets and wants them discontinued as they cause her to gag; no other acute issues voiced at this time. Exam Narrative: General: chronically ill appearing female in NAD Heart: normal S1 and S2; no rub Lungs: coarse breath sounds throughout Abdomen: soft, nontender, nondistended, positive bowel sounds Extremities: no cyanosis or clubbing; trace edema Skin: no nodules Objective Data Vital Signs Vital Signs: Vital Signs Temp Pulse Resp BP Pulse Ox O2 Del Method O2 Flow Rate 12/23/22 12:04 84 12/23/22 08:01 76 12/23/22 09:57 18 97 Nasal Cannula 3 12/23/22 08:55 80 18 12/23/22 08:50 97 Nasal Cannula 3 12/23/22 08:48 78 18 12/23/22 05:28 98.7 F 70 17 128/54 L 91 12/23/22 04:00 72 12/23/22 02:30 80 20 12/23/22 02:05 79 18 97 Nasal Cannula 3 12/23/22 02:05 78 18 12/23/22 00:00 68 12/22/22 20:00 80 12/22/22 20:28 98.4 F 79 17 156/66 H 98 12/22/22 17:21 80 12/22/22 16:00 79 Intake/Output Intake/Output: Intake & Output 12/20/22 12/21/22 12/22/22 12/23/22 23:59 23:59 23:59 23:59 Intake Total 1290 650 240 720 Output Total 262 031 4869 1999 Balance 791 -50 -1660 -8120 Meds/Results Medications: Active Medications Generic Name Dose Route Start Last Admin Trade Name Freq PRN Reason Stop Dose Admin Acetaminophen 650 mg 12/14/22 23:34 12/22/22 20:41 Acetaminophen 325 Mg Tablet PO 650 mg Q6H PRN Administration Mild Pain (1-3) or Fever Diltiazem HCl 240 mg 12/15/22 09:00 12/23/22 09:56 Diltiazem Hcl Cd 240 Mg Cap.Er.24h PO 240 mg DAILY PK Administration Docusate Sodium 100 mg 12/15/22 21:00 12/23/22 09:56 Docusate Sodium 100 Mg Capsule PO Not Given Q12HR PK Enoxaparin Sodium 40 mg 12/15/22 09:00 12/23/22 09:56 Enoxaparin 40 Mg/0.4 Ml Syringe SUB-Q 40 mg DAILY PK Administration Guaifenesin
--- NOTE | 2022-12-23 13:29 | P.PNNP_ITS ---
Progress Note: A&P Assessment and Plan (1) Hyponatremia: Code(s): E87.1 - Hypo-osmolality and hyponatremia Status: Acute Assessment and Plan: * acute versus chronic versus acute on chronic?? * no previous lab testing to compare to...however, suspicion falls on chronicity * old records requested * presented with sodium of 120mmol/L * improved to 130mmol/L (on 12/17/22) * then trended to 124 - 126mmol/L * was up to 128mmol/L for a few days * multiple risk factors of hyponatremia: * lung disease/COPD * pneumonia * pulmonary nodules * history of malignancy * PRN diuretic therapy * prerenal factors * work-up and evaluation to date: * TSH okay * corisol okay * SPEP and UPEP pending * urine electrolytes prerenal (on admission) - s/p IVFs * continue with fluid restriction for now * added salt tablets - she is having difficult tolerating this intervention * if he sodium improves, I suppose we can try to wean off * no need for 3% saline at this time * follow trend of sodium (2) Pneumonia: Code(s): J18.9 - Pneumonia, unspecified organism Status: Acute Assessment and Plan: * suspected on admission * sputum culture with Pseudomonas * on antibiotics (3) Chronic obstructive pulmonary disease: Code(s): J44.9 - Chronic obstructive pulmonary disease, unspecified Status: Chronic Assessment and Plan: * on supplemental oxygen, inhalers, and nebulizers * continue supportive therapy (4) Hypertension: Code(s): I10 - Essential (primary) hypertension Status: Chronic Assessment and Plan: * reasonable control * continue home BP medications * follow trend of hemodynamics Will continue to follow. Subjective Date/time seen: 12/23/22 13:29 Interval history: Follow-up for hyponatremia. Due to drop in sodium level yesterday, fluid restriction was changed to 1200cc/day and was started on salt tablets; sodium doing a bit better by recent check; does not like taking the salt tablets and wants them discontinued as they cause her to gag; no other acute issues voiced at this time. Exam Narrative: General: chronically ill appearing female in NAD Heart: normal S1 and S2; no rub Lungs: coarse breath sounds throughout Abdomen: soft, nontender, nondistended, positive bowel sounds Extremities: no cyanosis or clubbing; trace edema Skin: no nodules Objective Data Vital Signs Vital Signs: Vital Signs Temp Pulse Resp BP Pulse Ox O2 Del Method O2 Flow Rate 12/23/22 12:04 84 12/23/22 08:01 76 12/23/22 09:57 18 97 Nasal Cannula 3 12/23/22 08:55 80 18 12/23/22 08:50 97 Nasal Cannula 3 12/23/22 08:48 78 18 12/23/22 05:28 98.7 F 70 17 128/54 L 91 12/23/22 04:00 72 12/23/22 02:30 80 20 12/23/22 02:05 79 18 97 Nasal Cannula 3 12/23/22 02:05 78 18 12/23/22 00:00 68 12/22/22 20:00 80 12/22/22 20:28 98.4 F 79 17 156/66 H 98 12/22/22 17:21 80 12/22/22 16:00 79 Intake/Output Intake/Output: Intake & Output 12/20/22 12/21/22 12/22/22 12/23/22 23:59 23:59 23:59 23:59 I
[2022-12-23] MEDS: levoFLOXacin 750 MG TABLET PO (14:52)
--- NOTE | 2022-12-23 16:55 | P.PNIM_ITS ---
Progress Note: A&P Assessment and Plan (1) Pulmonary nodules: Code(s): R91.8 - Other nonspecific abnormal finding of lung field Status: Acute Assessment and Plan: * Chest xray showed nodules in the bilateral apex * Follow up with pulmonology as an o/p. * repeat imaging once infection clears. * history of breast cancer and a smoking history - close f/u is absolutely essential. ' (2) Hypertension: Qualifiers: Hypertension type: primary hypertension Qualified Code(s): I10 - Es sential (primary) hypertension Code(s): I10 - Essential (primary) hypertension Status: Chronic Assessment and Plan: * Stable generally in the 130/140 sbp range. * Continue home medications * Trend BP * adjust as indicated (3) Hyponatremia: Code(s): E87.1 - Hypo-osmolality and hyponatremia Status: Acute Assessment and Plan: * Sodium has been 124-125 * currently sodium is at 128 * continue sodium tabs * baseline does appear to be low * most likely the cause of her weakness * Continue to trend (4) Community acquired pneumonia: Qualifiers: Laterality: unspecified laterality Qualified Code(s): J18.9 - Pneumonia, unspecified organism Code(s): J18.9 - Pneumonia, unspecified organism Status: Acute Assessment and Plan: * Pseudomonas on cx, levaquin susceptible and now on levaquin. * Final dose should be 12/25/22. * High risk patient d/t severe chronic hypoxic resp. failure, will need close o/p f/u upon discharge. (5) Chronic respiratory failure with hypoxia, on home oxygen therapy: Code(s): J96.11 - Chronic respiratory failure with hypoxia; Z99.81 - Dependence on supplemental oxygen Status: Acute Assessment and Plan: * Continuing on home 3L, recently was 2L as an o/p but needed increase. Tolerating home oxygen well. (6) Chronic obstructive pulmonary disease: Code(s): J44.9 - Chronic obstructive pulmonary disease, unspecified Status: Chronic Assessment and Plan: * PRN bronchodilators, not acutely exacerbated at this time. Plan repeat chest xray showed pleural effusion lasix ordered trend urine output Echo is ok with EF of >70% with grade 1 DD Time Spent With Patient Time: 57 minutes Subjective Date/time seen: 12/23/22 16:55 Interval history: 12/23/22 Patient was resting in bed feeling okay. She did state that she was still short of breath and she was unable to Breathe in deep. She denies any chest pain, nausea, vomiting, constipation. Sodium today is still 125. 12/22/22 Patient presented 12/14/22 with findings of pneumonia on imaging. Sputum cultures grew out pseudomonas and patient was changed to cefepime on 12/19. Sensitivities resulted yesterday, sensitive to quinolones as well. Today, the patient is breathing easily after a breathing treatment. She has been assisting the staff with her own ADLs. She does note feeling weak. Review of Systems Review of Systems: All systems reviewed & are unremarkable except as noted in HPI and below Exam Narrative: General: well-nourished, well-appearing 78-year-old female, sitting up in bed, comfortable, NARD Neuro: awake, alert and oriented x4, speech clear, no focal neuro deficits noted HEENMT: normocephalic, atraumatic, EOMI, sc
--- NOTE | 2022-12-23 16:55 | PM.IMPN ---
Progress Note: A&P Assessment and Plan (1) Pulmonary nodules: Code(s): R91.8 - Other nonspecific abnormal finding of lung field Status: Acute Assessment and Plan: Chest xray showed nodules in the bilateral apex Follow up with pulmonology as an o/p. repeat imaging once infection clears. history of breast cancer and a smoking history - close f/u is absolutely essential. ' (2) Hypertension: Qualifiers: Hypertension type: primary hypertension Qualified Code(s): I10 - Essential (primary) hypertension Code(s): I10 - Essential (primary) hypertension Status: Chronic Assessment and Plan: Stable generally in the 130/140 sbp range. Continue home medications Trend BP adjust as indicated (3) Hyponatremia: Code(s): E87.1 - Hypo-osmolality and hyponatremia Status: Acute Assessment and Plan: Sodium has been 124-125 currently sodium is at 128 continue sodium tabs baseline does appear to be low most likely the cause of her weakness Continue to trend (4) Community acquired pneumonia: Qualifiers: Laterality: unspecified laterality Qualified Code(s): J18.9 - Pneumonia, unspecified organism Code(s): J18.9 - Pneumonia, unspecified organism Status: Acute Assessment and Plan: Pseudomonas on cx, levaquin susceptible and now on levaquin. Final dose should be 12/25/22. High risk patient d/t severe chronic hypoxic resp. failure, will need close o/p f/u upon discharge. (5) Chronic respiratory failure with hypoxia, on home oxygen therapy: Code(s): J96.11 - Chronic respiratory failure with hypoxia; Z99.81 - Dependence on supplemental oxygen Status: Acute Assessment and Plan: Continuing on home 3L, recently was 2L as an o/p but needed increase. Tolerating home oxygen well. (6) Chronic obstructive pulmonary disease: Code(s): J44.9 - Chronic obstructive pulmonary disease, unspecified Status: Chronic Assessment and Plan: PRN bronchodilators, not acutely exacerbated at this time. Plan repeat chest xray showed pleural effusion lasix ordered trend urine output Echo is ok with EF of >70% with grade 1 DD Time Spent With Patient Time: 57 minutes Subjective Date/time seen: 12/23/22 16:55 Interval history: 12/23/22 Patient was resting in bed feeling okay. She did state that she was still short of breath and she was unable to Breathe in deep. She denies any chest pain, nausea, vomiting, constipation. Sodium today is still 125. 12/22/22 Patient presented 12/14/22 with findings of pneumonia on imaging. Sputum cultures grew out pseudomonas and patient was changed to cefepime on 12/19. Sensitivities resulted yesterday, sensitive to quinolones as well. Today, the patient is breathing easily after a breathing treatment. She has been assisting the staff with her own ADLs. She does note feeling weak. Review of Systems Review of Systems: All systems reviewed & are unremarkable except as noted in HPI and below Exam Narrative: General: well-nourished, well-appearing 78-year-old female, sitting up in bed, comfortable, NARD Neuro: awake, alert and oriented x4, speech clear, no focal neuro deficits noted HEENMT: normocephalic, atraumatic, EOMI, sclerae anicteric, moist oral mucosa Respiratory: Clear to auscultation bilaterally without crackles, rhonchi or wheezes, nonlabored breathing Cardio: regular rate, regular rhythm with S1-S2 Abdomen: nondistended, normoactive bowel sounds, soft, nontender to palpation Extremities: no edema, erythema, or tenderness to palpation, DP pulses 2+ bilaterally Skin: no rashes or lesions, warm and dry Psych: appropriate mood and affect, judgment and insight intact Objective Data Vital Signs Vital Signs: Vital Signs - 24 hr 12/22/22 17:21 12/22/22 20:28 12/22/22 20:00 Tem
[2022-12-23] MEDS: NEBIVOLOL HCL 5 MG TABLET 10 MG PO (17:18)
[2022-12-23] MEDS: DOCUSATE SODIUM 100 MG CAPSULE PO (20:35)
[2022-12-24] VITALS (21 sets, daily range): BP systolic 127–129; BP diastolic 44–57; PULSE 71–90; RESP 18; TEMP 36.4–37; O2SAT 98–100
[2022-12-24] MEDS: IPRATROPIUM BR 0.02% INH SOLN 0.5 MG/2.5 ML VIAL INHALATION ×4 (01:44→20:48)
[2022-12-24] MEDS: LEVALBUTEROL NEB 1.25 MG/3 ML INHALATION ×4 (01:44→20:47)
[2022-12-24 04:57] LABS: Basophils Percent Auto 0.2 % (0.2-1.2); Eosinophils Percent Auto 0.5 % (0-4.4); Hemoglobin 9.7 g/dL (12.0-15.0); Immature Granulocyte Absolute 0.03 K/mm3 (0.00-0.031); Immature Granulocyte Percent A 0.7 % (0-0.5); Lymphocytes Percent Auto 22.2 % (18.3-44.2); Mean Corpuscular HGB Conc 32.3 g/dl (32-36); Mean Corpuscular Hemoglobin 29.8 pg (26-34); Mean Platelet Volume 7.6 fl (7.4-10.4); Monocytes Absolute Auto 0.4 K/mm3 (0.1-0.6); Monocytes Percent Auto 9.4 % (2.6-8.5); Neutrophils Absolute Auto 2.7 K/mm3 (1.3-6.7); Platelet Count Result 216 k/mm3 (150-375); Red Blood Count 3.26 M/mm3 (4.2-5.4); Red Cell Distribution Width 13.4 % (11.5-14.5); White Blood Count 4.1 K/mm3 (4.5-10.0)
[2022-12-24 05:12] LABS: Alanine Aminotransferase 14 U/L (6-35); Alkaline Phosphatase 76 U/L (38-126); Aspartate Amino Transferase 34 U/L (14-36); Bilirubin,Total 0.3 mg/dL (0.2-1.3); Blood Urea Nitrogen 9 mg/dL (7-17); Calcium 8.5 mg/dL (8.4-10.2); Carbon Dioxide > 40 mmol/L (22-30); Chloride 86 mmol/L (98-107); Estimated CRCL calculation 61 ml/min; Estimated Glomerular Filt Rate > 60; Glucose 105 mg/dL (65-110); Magnesium 1.9 mg/dL (1.6-2.3); Sodium 128 mmol/L (137-145)
[2022-12-24] MEDS: FLUTICASONE/SALMETEROL 115-21 MCG INHALER 1 PUFF 2 PUFF INHALATION ×2 (07:43→20:50)
[2022-12-24] MEDS: guaiFENesin 12 HR 600 MG TABCR PO ×2 (10:28→20:29)
[2022-12-24] MEDS: ENOXAPARIN 40 MG/0.4 ML SYRINGE SUB-Q (10:28)
[2022-12-24] MEDS: MAGNESIUM OXIDE 400 MG TABLET PO (10:29)
--- NOTE | 2022-12-24 11:15 | PM.IMPN ---
Progress Note: A&P Assessment and Plan (1) Pulmonary nodules: Code(s): R91.8 - Other nonspecific abnormal finding of lung field Status: Acute Assessment and Plan: Chest xray showed nodules in the bilateral apex Follow up with pulmonology as an o/p. repeat imaging once infection clears. history of breast cancer and a smoking history - close f/u is absolutely essential. ' (2) Hypertension: Qualifiers: Hypertension type: primary hypertension Qualified Code(s): I10 - Essential (primary) hypertension Code(s): I10 - Essential (primary) hypertension Status: Chronic Assessment and Plan: Stable generally in the 130/140 sbp range. Continue home medications Trend BP adjust as indicated (3) Hyponatremia: Code(s): E87.1 - Hypo-osmolality and hyponatremia Status: Acute Assessment and Plan: Sodium has been 124-125 currently sodium is at 128 continue sodium tabs baseline does appear to be low most likely the cause of her weakness Continue to trend (4) Community acquired pneumonia: Qualifiers: Laterality: unspecified laterality Qualified Code(s): J18.9 - Pneumonia, unspecified organism Code(s): J18.9 - Pneumonia, unspecified organism Status: Acute Assessment and Plan: Pseudomonas on cx, levaquin susceptible and now on levaquin. Final dose should be 12/25/22. High risk patient d/t severe chronic hypoxic resp. failure, will need close o/p f/u upon discharge. (5) Chronic respiratory failure with hypoxia, on home oxygen therapy: Code(s): J96.11 - Chronic respiratory failure with hypoxia; Z99.81 - Dependence on supplemental oxygen Status: Acute Assessment and Plan: Continuing on home 3L, recently was 2L as an o/p but needed increase. Tolerating home oxygen well. (6) Chronic obstructive pulmonary disease: Code(s): J44.9 - Chronic obstructive pulmonary disease, unspecified Status: Chronic Assessment and Plan: PRN bronchodilators, not acutely exacerbated at this time. Plan repeat chest xray showed pleural effusion lasix ordered trend urine output Echo is ok with EF of >70% with grade 1 DD Time Spent With Patient Time: 39 minutes Time with patient: Greater than 35 minutes Subjective Date/time seen: 12/24/22 1115 Interval history: 12/24/22 111 Patient is doing better today. She stated that she feels just very tired and weak. She does have a little bit of shortness of breath however is not as bad. Sodium is better today at 128 She was having a problem about having to take the sodium and she would prefer the sodium liquid 12/23/22 Patient was resting in bed feeling okay. She did state that she was still short of breath and she was unable to Breathe in deep. She denies any chest pain, nausea, vomiting, constipation. Sodium today is still 125. 12/22/22 Patient presented 12/14/22 with findings of pneumonia on imaging. Sputum cultures grew out pseudomonas and patient was changed to cefepime on 12/19. Sensitivities resulted yesterday, sensitive to quinolones as well. Today, the patient is breathing easily after a breathing treatment. She has been assisting the staff with her own ADLs. She does note feeling weak. Review of Systems Review of Systems: All systems reviewed & are unremarkable except as noted in HPI and below Exam Narrative: General: well-nourished, well-appearing 78-year-old female, sitting up in bed, comfortable, NARD Neuro: awake, alert and oriented x4, speech clear, no focal neuro deficits noted HEENMT: normocephalic, atraumatic, EOMI, sclerae anicteric, moist oral mucosa Respiratory: Clear to auscultation bilaterally without crackles, rhonchi or wheezes, nonlabored breathing Cardio: regular rate, regular rhythm with S1-S2 Abdomen: nondistended, normoactive bowel sounds
--- NOTE | 2022-12-24 11:15 | P.PNIM_ITS ---
Progress Note: A&P Assessment and Plan (1) Pulmonary nodules: Code(s): R91.8 - Other nonspecific abnormal finding of lung field Status: Acute Assessment and Plan: * Chest xray showed nodules in the bilateral apex * Follow up with pulmonology as an o/p. * repeat imaging once infection clears. * history of breast cancer and a smoking history - close f/u is absolutely essential. ' (2) Hypertension: Qualifiers: Hypertension type: primary hypertension Qualified Code(s): I10 - Es sential (primary) hypertension Code(s): I10 - Essential (primary) hypertension Status: Chronic Assessment and Plan: * Stable generally in the 130/140 sbp range. * Continue home medications * Trend BP * adjust as indicated (3) Hyponatremia: Code(s): E87.1 - Hypo-osmolality and hyponatremia Status: Acute Assessment and Plan: * Sodium has been 124-125 * currently sodium is at 128 * continue sodium tabs * baseline does appear to be low * most likely the cause of her weakness * Continue to trend (4) Community acquired pneumonia: Qualifiers: Laterality: unspecified laterality Qualified Code(s): J18.9 - Pneumonia, unspecified organism Code(s): J18.9 - Pneumonia, unspecified organism Status: Acute Assessment and Plan: * Pseudomonas on cx, levaquin susceptible and now on levaquin. * Final dose should be 12/25/22. * High risk patient d/t severe chronic hypoxic resp. failure, will need close o/p f/u upon discharge. (5) Chronic respiratory failure with hypoxia, on home oxygen therapy: Code(s): J96.11 - Chronic respiratory failure with hypoxia; Z99.81 - Dependence on supplemental oxygen Status: Acute Assessment and Plan: * Continuing on home 3L, recently was 2L as an o/p but needed increase. Tolerating home oxygen well. (6) Chronic obstructive pulmonary disease: Code(s): J44.9 - Chronic obstructive pulmonary disease, unspecified Status: Chronic Assessment and Plan: * PRN bronchodilators, not acutely exacerbated at this time. Plan repeat chest xray showed pleural effusion lasix ordered trend urine output Echo is ok with EF of >70% with grade 1 DD Time Spent With Patient Time: 39 minutes Time with patient: Greater than 35 minutes Subjective Date/time seen: 12/24/22 1115 Interval history: 12/24/22 1115 Patient is doing better today. She stated that she feels just very tired and weak. She does have a little bit of shortness of breath however is not as bad. Sodium is better today at 128 She was having a problem about having to take the sodium and she would prefer the sodium liquid 12/23/22 Patient was resting in bed feeling okay. She did state that she was still short of breath and she was unable to Breathe in deep. She denies any chest pain, nausea, vomiting, constipation. Sodium today is still 125. 12/22/22 Patient presented 12/14/22 with findings of pneumonia on imaging. Sputum cultures grew out pseudomonas and patient was changed to cefepime on 12/19. Sensitivities resulted yesterday, sensitive to quinolones as well. Today, the patient is breathing easily after a breathing treatment. She has been assisting the staff with her own ADLs. She does note feeling weak. Review of Systems Review of Systems:
[2022-12-24] MEDS: SODIUM CHLORIDE 1 GM TABLET PO (11:53)
--- NOTE | 2022-12-24 13:33 | PCPTNOTE ---
13:30 Pt declined treatment due to fatigue. Pt reported therapist can try back later today and she would see if she could then.
--- NOTE | 2022-12-24 14:39 | P.PNNP_ITS ---
Progress Note: A&P Assessment and Plan (1) Hyponatremia: Code(s): E87.1 - Hypo-osmolality and hyponatremia Status: Acute Assessment and Plan: * acute versus chronic versus acute on chronic?? * no previous lab testing to compare to...however, suspicion falls on chronicity * old records requested * presented with sodium of 120mmol/L * multiple risk factors of hyponatremia: * lung disease/COPD * pneumonia * pulmonary nodules * history of malignancy * PRN diuretic therapy * prerenal factors * work-up and evaluation to date: * TSH okay * corisol okay * SPEP and UPEP pending * urine electrolytes prerenal (on admission) - s/p IVFs * continue with fluid restriction for now * She is on salt tablets now. however she is not tolerating this very well. * Consider salt tablets will give saline plus Lasix to try to get the sodium level up a little more and then let fluid restriction take over. * Check another sodium level tomorrow. (2) Pneumonia: Code(s): J18.9 - Pneumonia, unspecified organism Status: Acute Assessment and Plan: * suspected on admission * sputum culture with Pseudomonas * on Levaquin (3) Chronic obstructive pulmonary disease: Code(s): J44.9 - Chronic obstructive pulmonary disease, unspecified Status: Chronic Assessment and Plan: * on supplemental oxygen, inhalers, and nebulizers * continue supportive therapy (4) Hypertension: Qualifiers: Hypertension type: primary hypertension Qualified Code(s): I10 - Essential (primary) hypertension Code(s): I10 - Essential (primary) hypertension Status: Chronic Assessment and Plan: * Systolic in the 120s to 140s generally * continue home BP medications * follow trend of hemodynamics Subjective Date/time seen: 12/24/22 14:39 Interval history: Patient is lying in bed. She is on oxygen. The oxygen at the same dose she is on at home. No swelling Exam Narrative: General: chronically ill appearing female in NAD Heart: normal S1 and S2; no rub or gallop Lungs: coarse breath sounds throughout Abdomen: soft, nontender, nondistended, positive bowel sounds Extremities: no cyanosis or clubbing; trace edema Skin: no nodules and no rash Objective Data Vital Signs Vital Signs: Vital Signs - 24 hr 12/23/22 16:01 12/23/22 17:18 12/23/22 20:01 Temperature Pulse Rate 91 87 77 Respiratory Rate 18 Blood Pressure Pulse Oximetry Oxygen Delivery Oxygen Flow Rate Fraction of Inspired Oxygen 12/23/22 20:02 12/23/22 20:14 12/23/22 20:18 Temperature 98.3 F Pulse Rate 80 83 Respiratory Rate 18 18 Blood Pressure 138/55 L Pulse Oximetry 97 100 Oxygen Delivery Nasal Cannula Oxygen Flow Rate 3 Fraction of Inspired Oxygen 12/23/22 20:00 12/23/22 20:00 12/24/22 00:00 Temperature Pulse Rate 83 83 78 Respiratory Rate 18 Blood Pressure Pulse Oximetry 100 Oxygen Delivery Nasal Cannula Oxygen Flow Rate 3 Fraction of Inspired Oxygen 32 12/24/22 01:45 12/24/22 01:56 12/24/22 04:00 [facility]
--- NOTE | 2022-12-24 14:39 | PM.PNNEP ---
Progress Note: A&P Assessment and Plan (1) Hyponatremia: Code(s): E87.1 - Hypo-osmolality and hyponatremia Status: Acute Assessment and Plan: acute versus chronic versus acute on chronic?? no previous lab testing to compare to...however, suspicion falls on chronicity old records requested presented with sodium of 120mmol/L multiple risk factors of hyponatremia: lung disease/COPD pneumonia pulmonary nodules history of malignancy PRN diuretic therapy prerenal factors work-up and evaluation to date: TSH okay corisol okay SPEP and UPEP pending urine electrolytes prerenal (on admission) - s/p IVFs continue with fluid restriction for now She is on salt tablets now. however she is not tolerating this very well. Consider salt tablets will give saline plus Lasix to try to get the sodium level up a little more and then let fluid restriction take over. Check another sodium level tomorrow. (2) Pneumonia: Code(s): J18.9 - Pneumonia, unspecified organism Status: Acute Assessment and Plan: suspected on admission sputum culture with Pseudomonas on Levaquin (3) Chronic obstructive pulmonary disease: Code(s): J44.9 - Chronic obstructive pulmonary disease, unspecified Status: Chronic Assessment and Plan: on supplemental oxygen, inhalers, and nebulizers continue supportive therapy (4) Hypertension: Qualifiers: Hypertension type: primary hypertension Qualified Code(s): I10 - Essential (primary) hypertension Code(s): I10 - Essential (primary) hypertension Status: Chronic Assessment and Plan: Systolic in the 120s to 140s generally continue home BP medications follow trend of hemodynamics Subjective Date/time seen: 12/24/22 14:39 Interval history: Patient is lying in bed. She is on oxygen. The oxygen at the same dose she is on at home. No swelling Exam Narrative: General: chronically ill appearing female in NAD Heart: normal S1 and S2; no rub or gallop Lungs: coarse breath sounds throughout Abdomen: soft, nontender, nondistended, positive bowel sounds Extremities: no cyanosis or clubbing; trace edema Skin: no nodules and no rash Objective Data Vital Signs Vital Signs: Vital Signs - 24 hr 12/23/22 16:01 12/23/22 17:18 12/23/22 20:01 Temperature Pulse Rate 91 87 77 Respiratory Rate 18 Blood Pressure Pulse Oximetry Oxygen Delivery Oxygen Flow Rate Fraction of Inspired Oxygen 12/23/22 20:02 12/23/22 20:14 12/23/22 20:18 Temperature 98.3 F Pulse Rate 80 83 Respiratory Rate 18 18 Blood Pressure 138/55 L Pulse Oximetry 97 100 Oxygen Delivery Nasal Cannula Oxygen Flow Rate 3 Fraction of Inspired Oxygen 12/23/22 20:00 12/23/22 20:00 12/24/22 00:00 Temperature Pulse Rate 83 83 78 Respiratory Rate 18 Blood Pressure Pulse Oximetry 100 Oxygen Delivery Nasal Cannula Oxygen Flow Rate 3 Fraction of Inspired Oxygen 32 12/24/22 01:45 12/24/22 01:56 12/24/22 04:00 Temperature Pulse Rate 76 79 71 Respiratory Rate 18 18 Blood Pressure Pulse Oximetry Oxygen Delivery Oxygen Flow Rate Fraction of Inspired Oxygen 12/24/22 04:26 12/24/22 07:43 12/24/22 07:46 Temperature 97.5 F L Pulse Rate 77 81 81 Respiratory Rate 18 18 18 Blood Pressure 127/54 L Pulse Oximetry 100 99 Oxygen Delivery Nasal Cannula Oxygen Flow Rate 3 Fraction of Inspired Oxygen 12/24/22 08:01 12/24/22 09:00 12/24/22 13:16 Temperature Pulse Rate 88 86 Respiratory Rate 18 18 Blood Pressure Pulse Oximetry 99 Oxygen Delivery Nasal Cannula Oxygen Flow Rate 3 Fraction of Inspired Oxygen 12/24/22 13:30 12/24/22 13:40 12/24/22 08:00 Temperature 98.6 F Pulse Rate 84 88 87 Respiratory Rate 18 18 Blood Pressure 129/44 L Pulse Oximetry 98 Oxygen Delivery Oxygen Flow
[2022-12-24] MEDS: SILVERGEL (ELTA) 45 ML 1 APPLIC TOPICAL (15:15)
[2022-12-24] MEDS: levoFLOXacin 750 MG TABLET PO (15:16)
[2022-12-24] MEDS: SODIUM CHLORIDE 0.9% IV 1,000 ML 40 ML IV CONT (15:16)
--- NOTE | 2022-12-24 15:45 | PCOTNOTE ---
Attempted to see pt for Occupational Therapy. Pt declined to particpate in any strengthening and/or therapeutic activities due to fatigue and having issues with her breathing. Pt reports I finally am comfortable enough where I am not struggling to breath and I don't want to mess that up. Pt request to have therapy attempt tomorrow. Will continue per POC duration/frequency tomorrow.
[2022-12-24] MEDS: NEBIVOLOL HCL 5 MG TABLET 10 MG PO (17:02)
[2022-12-24] MEDS: FUROSEMIDE 20 MG TABLET PO (17:02)
[2022-12-24] MEDS: SALINE 0.65% NAS SOLN 44 ML BTL 1 SPRAY NASAL (20:29)
[2022-12-25] VITALS (17 sets, daily range): BP systolic 133–142; BP diastolic 48–58; PULSE 77–88; RESP 18–20; TEMP 36.4–36.8; O2SAT 96–98
[2022-12-25] MEDS: IPRATROPIUM BR 0.02% INH SOLN 0.5 MG/2.5 ML VIAL INHALATION ×3 (01:38→13:56)
[2022-12-25] MEDS: LEVALBUTEROL NEB 1.25 MG/3 ML INHALATION ×3 (01:39→13:56)
[2022-12-25 05:19] LABS: Basophils Percent Auto 0.4 % (0.2-1.2); Eosinophils Percent Auto 0.2 % (0-4.4); Hematocrit 29.8 % (37.0-47.0); Hemoglobin 9.4 g/dL (12.0-15.0); Immature Granulocyte Absolute 0.02 K/mm3 (0.00-0.031); Immature Granulocyte Percent A 0.4 % (0-0.5); Lymphocytes Absolute Auto 0.84 K/mm3 (0.9-3.2); Lymphocytes Percent Auto 18.4 % (18.3-44.2); Mean Corpuscular HGB Conc 31.5 g/dl (32-36); Mean Corpuscular Hemoglobin 29.7 pg (26-34); Mean Corpuscular Volume 94.3 fl (80-100); Mean Platelet Volume 7.6 fl (7.4-10.4); Monocytes Absolute Auto 0.4 K/mm3 (0.1-0.6); Monocytes Percent Auto 9.2 % (2.6-8.5); Neutrophils Absolute Auto 3.3 K/mm3 (1.3-6.7); Neutrophils Percent Auto 71.4 % (45.5-73.1); Platelet Count Result 231 k/mm3 (150-375); Red Blood Count 3.16 M/mm3 (4.2-5.4); Red Cell Distribution Width 13.3 % (11.5-14.5); White Blood Count 4.6 K/mm3 (4.5-10.0)
[2022-12-25 05:39] LABS: Alanine Aminotransferase 14 U/L (6-35); Albumin Level 2.9 g/dL (3.5-5.1); Alkaline Phosphatase 67 U/L (38-126); Aspartate Amino Transferase 23 U/L (14-36); Bilirubin,Total 0.2 mg/dL (0.2-1.3); Blood Urea Nitrogen 9 mg/dL (7-17); Calcium 8.4 mg/dL (8.4-10.2); Carbon Dioxide > 40 mmol/L (22-30); Chloride 87 mmol/L (98-107); Estimated CRCL calculation 60 ml/min; Estimated Glomerular Filt Rate > 60; Glucose 104 mg/dL (65-110); Magnesium 1.8 mg/dL (1.6-2.3); Phosphorus 3.8 mg/dL (2.5-4.5); Potassium 3.8 mmol/L (3.4-5.0); Sodium 130 mmol/L (137-145)
--- NOTE | 2022-12-25 07:36 | P.DS_ITS ---
DS: Admitting Diagnosis Discharge Date 12/25/22 Admitting Diagnosis Hyponatremia, COPD with hypoxia, Pneumonia DS: Discharge Diagnosis Discharge Diagnosis (1) Pulmonary nodules: Code(s): R91.8 - Other nonspecific abnormal finding of lung field Status: Acute Assessment and Plan: * Chest xray showed nodules in the bilateral apex * Follow up with pulmonology as an o/p. * repeat imaging once infection clears. * history of breast cancer and a smoking history - close f/u is absolutely es sential. ' (2) Hypertension: Qualifiers: Hypertension type: primary hypertension Qualified Code(s): I10 - Essential (primary) hypertension Code(s): I10 - Essential (primary) hypertension Status: Chronic Assessment and Plan: * Stable generally in the 120/130 sbp range. * Current BP is 133/56 * Continue home medications * Trend BP * adjust as indicated (3) Hyponatremia: Code(s): E87.1 - Hypo-osmolality and hyponatremia Status: Acute Assessment and Plan: * Sodium has been 124-125 * currently sodium is at 130 * continue sodium tabs * NS and lasix added * Continue with fluid restriction * baseline does appear to be low * most likely the cause of her weakness * Continue to trend (4) Community acquired pneumonia: Qualifiers: Laterality: unspecified laterality Qualified Code(s): J18.9 - Pneumonia, unspecified organism Code(s): J18.9 - Pneumonia, unspecified organism Status: Acute Assessment and Plan: * Pseudomonas on cx, levaquin susceptible and now on levaquin. * Final dose should be 12/25/22. * High risk patient d/t severe chronic hypoxic resp. failure, will need close o/p f/u upon discharge. (5) Chronic respiratory failure with hypoxia, on home oxygen therapy: Code(s): J96.11 - Chronic respiratory failure with hypoxia; Z99.81 - Dependence on supplemental oxygen Status: Acute Assessment and Plan: * Continuing on home 3L, recently was 2L as an o/p but needed increase. Tolerating home oxygen well. (6) Chronic obstructive pulmonary disease: Qualifiers: COPD type: unspecified COPD Qualified Code(s): J44.9 - Chronic obstructive pulmonary disease, unspecified Code(s): J44.9 - Chronic obstructive pulmonary disease, unspecified Status: Chronic Assessment and Plan: * PRN bronchodilators, not acutely exacerbated at this time. Plan repeat chest xray showed pleural effusion lasix ordered trend urine output Echo is ok with EF of >70% with grade 1 DD DS: Summary Hospital Course Hospital Course: This is a pleasant 71-year-old female smoker with chronic respiratory failure on 3 L nasal cannula, chronic obstructive pulmonary disease, and history of breast cancer who presented to the emergency department via EMS from home for evaluation of shortness of breath. upon arrival patient did note that she has had productive cough with yellow sputum with change in consistency amount. Patient does wear oxygen at home at 3 L. white blood cell count was 11.6 upon arrival and CTA showed pulmonary nodules in the bilateral upper lobes indicating disease or infection. Patient was started on azithromycin ceftriaxone which had been converted to Levaquin. It was also noted the patient did have hy
--- NOTE | 2022-12-25 07:36 | PM.DS ---
DS: Admitting Diagnosis Discharge Date 12/25/22 Admitting Diagnosis Hyponatremia, COPD with hypoxia, Pneumonia DS: Discharge Diagnosis Discharge Diagnosis (1) Pulmonary nodules: Code(s): R91.8 - Other nonspecific abnormal finding of lung field Status: Acute Assessment and Plan: Chest xray showed nodules in the bilateral apex Follow up with pulmonology as an o/p. repeat imaging once infection clears. history of breast cancer and a smoking history - close f/u is absolutely essential. ' (2) Hypertension: Qualifiers: Hypertension type: primary hypertension Qualified Code(s): I10 - Essential (primary) hypertension Code(s): I10 - Essential (primary) hypertension Status: Chronic Assessment and Plan: Stable generally in the 120/130 sbp range. Current BP is 133/56 Continue home medications Trend BP adjust as indicated (3) Hyponatremia: Code(s): E87.1 - Hypo-osmolality and hyponatremia Status: Acute Assessment and Plan: Sodium has been 124-125 currently sodium is at 130 continue sodium tabs NS and lasix added Continue with fluid restriction baseline does appear to be low most likely the cause of her weakness Continue to trend (4) Community acquired pneumonia: Qualifiers: Laterality: unspecified laterality Qualified Code(s): J18.9 - Pneumonia, unspecified organism Code(s): J18.9 - Pneumonia, unspecified organism Status: Acute Assessment and Plan: Pseudomonas on cx, levaquin susceptible and now on levaquin. Final dose should be 12/25/22. High risk patient d/t severe chronic hypoxic resp. failure, will need close o/p f/u upon discharge. (5) Chronic respiratory failure with hypoxia, on home oxygen therapy: Code(s): J96.11 - Chronic respiratory failure with hypoxia; Z99.81 - Dependence on supplemental oxygen Status: Acute Assessment and Plan: Continuing on home 3L, recently was 2L as an o/p but needed increase. Tolerating home oxygen well. (6) Chronic obstructive pulmonary disease: Qualifiers: COPD type: unspecified COPD Qualified Code(s): J44.9 - Chronic obstructive pulmonary disease, unspecified Code(s): J44.9 - Chronic obstructive pulmonary disease, unspecified Status: Chronic Assessment and Plan: PRN bronchodilators, not acutely exacerbated at this time. Plan repeat chest xray showed pleural effusion lasix ordered trend urine output Echo is ok with EF of >70% with grade 1 DD DS: Summary Hospital Course Hospital Course: This is a pleasant 71-year-old female smoker with chronic respiratory failure on 3 L nasal cannula, chronic obstructive pulmonary disease, and history of breast cancer who presented to the emergency department via EMS from home for evaluation of shortness of breath. upon arrival patient did note that she has had productive cough with yellow sputum with change in consistency amount. Patient does wear oxygen at home at 3 L. white blood cell count was 11.6 upon arrival and CTA showed pulmonary nodules in the bilateral upper lobes indicating disease or infection. Patient was started on azithromycin ceftriaxone which had been converted to Levaquin. It was also noted the patient did have hyponatremia with a sodium of 120 upon arrival. Patient does appear to have a chronic low sodium of 124-125. Patient has been started on p.o. salt tabs and nephrology has been consulted. Patient is also on a fluid restriction. Current sodium is 130. Repeat chest x-ray was performed and did show small pleural effusion. Patient has gotten Lasix and has been started on p.o. Lasix this time. Patient has been work with physical therapy and is mobile within her baseline. Patient states that she does feel better she denies any current chest pain, shortness a breath,
[2022-12-25] MEDS: FLUTICASONE/SALMETEROL 115-21 MCG INHALER 1 PUFF 2 PUFF INHALATION (08:25)
[2022-12-25] MEDS: ENOXAPARIN 40 MG/0.4 ML SYRINGE SUB-Q (09:27)
[2022-12-25] MEDS: guaiFENesin 12 HR 600 MG TABCR PO (09:27)
[2022-12-25] MEDS: FUROSEMIDE 20 MG TABLET PO (09:27)
[2022-12-25] MEDS: MAGNESIUM OXIDE 400 MG TABLET PO (09:28)
[2022-12-25] MEDS: MAGNESIUM SULF 2 GM/WATER 50ML 2 GM/50 ML BAG IVPB (09:29)
[2022-12-25] MEDS: SALINE 0.65% NAS SOLN 44 ML BTL 1 SPRAY NASAL ×2 (09:29→20:38)
--- NOTE | 2022-12-25 09:41 | PCOTNOTE ---
Attempted to see Pt for Occupational Therapy treatment. Pt states that she is currently trying to get her breath back following a breathing treatment. Pt states that she has already made her RN aware of this. Pt was encouraged to complete some grooming tasks and/or sit up in the chair. Pt continues to decline and states that she might be leaving today. RN is aware of pt's status.
--- NOTE | 2022-12-25 12:45 | P.PNNP_ITS ---
Progress Note: A&P Assessment and Plan (1) Hyponatremia: Code(s): E87.1 - Hypo-osmolality and hyponatremia Status: Acute Assessment and Plan: * acute versus chronic versus acute on chronic?? * no previous lab testing to compare to...however, suspicion falls on chronicity * old records requested * presented with sodium of 120mmol/L * multiple risk factors of hyponatremia: * lung disease/COPD * pneumonia * pulmonary nodules * history of malignancy * PRN diuretic therapy * prerenal factors * work-up and evaluation to date: * TSH okay * corisol okay * SPEP and UPEP pending * urine electrolytes prerenal (on admission) - s/p IVFs * continue with fluid restriction for now * She is on saline plus Lasix. Sodium level came up to 130 * Will discontinue these and stick with just the fluid restriction. * Check another sodium in the morning (2) Pneumonia: Code(s): J18.9 - Pneumonia, unspecified organism Status: Acute Assessment and Plan: * suspected on admission * sputum culture with Pseudomonas * on Levaquin (3) Chronic obstructive pulmonary disease: Qualifiers: COPD type: unspecified COPD Qualified Code(s): J44.9 - Chronic obstructive pulmonary disease, unspecified Code(s): J44.9 - Chronic obstructive pulmonary disease, unspecified Status: Chronic Assessment and Plan: * on supplemental oxygen, inhalers, and nebulizers * continue supportive therapy (4) Hypertension: Qualifiers: Hypertension type: primary hypertension Qualified Code(s): I10 - Essential (primary) hypertension Code(s): I10 - Essential (primary) hypertension Status: Chronic Assessment and Plan: * Systolic in the 120s to 130s lately * continue home BP medications Subjective Date/time seen: 12/25/22 12:45 Interval history: Patient is lying in bed. She feels better. We discussed at length fluid restriction to help the serum sodium and salt restriction to help her blood pressure. Exam Narrative: General: chronically ill appearing female in NAD Heart: normal S1 and S2; no ru Lungs: Breath sounds fairly clear. Occasional coarse Abdomen: soft, nontender, nondistended, positive bowel sounds Extremities: no cyanosis or clubbing; trace edema Skin: no nodules Objective Data Vital Signs Vital Signs: Vital Signs - 24 hr 12/24/22 13:16 12/24/22 13:30 12/24/22 13:40 Temperature 98.6 F Pulse Rate 86 84 88 Respiratory Rate 18 18 18 Blood Pressure 129/44 L Pulse Oximetry 98 Oxygen Delivery Oxygen Flow Rate Fraction of Inspired Oxygen 12/24/22 16:00 12/24/22 17:02 12/24/22 19:35 Temperature 98.3 F Pulse Rate 83 86 77 Respiratory Rate 18 Blood Pressure 129/57 L Pulse Oximetry 100 Oxygen Delivery Oxygen Flow Rate Fraction of Inspired Oxygen 12/24/22 20:51 12/24/22 20:52 12/24/22 21:00 Temperature Pulse Rate 80 80 82 Respiratory Rate 18 18 18 Blood Pressure Pulse Oximetry 98 Oxygen Delivery Nasal Cannula Oxygen Flow Rate 3 Fraction of Inspired Oxygen 12/24/22
--- NOTE | 2022-12-25 12:45 | PM.PNNEP ---
Progress Note: A&P Assessment and Plan (1) Hyponatremia: Code(s): E87.1 - Hypo-osmolality and hyponatremia Status: Acute Assessment and Plan: acute versus chronic versus acute on chronic?? no previous lab testing to compare to...however, suspicion falls on chronicity old records requested presented with sodium of 120mmol/L multiple risk factors of hyponatremia: lung disease/COPD pneumonia pulmonary nodules history of malignancy PRN diuretic therapy prerenal factors work-up and evaluation to date: TSH okay corisol okay SPEP and UPEP pending urine electrolytes prerenal (on admission) - s/p IVFs continue with fluid restriction for now She is on saline plus Lasix. Sodium level came up to 130 Will discontinue these and stick with just the fluid restriction. Check another sodium in the morning (2) Pneumonia: Code(s): J18.9 - Pneumonia, unspecified organism Status: Acute Assessment and Plan: suspected on admission sputum culture with Pseudomonas on Levaquin (3) Chronic obstructive pulmonary disease: Qualifiers: COPD type: unspecified COPD Qualified Code(s): J44.9 - Chronic obstructive pulmonary disease, unspecified Code(s): J44.9 - Chronic obstructive pulmonary disease, unspecified Status: Chronic Assessment and Plan: on supplemental oxygen, inhalers, and nebulizers continue supportive therapy (4) Hypertension: Qualifiers: Hypertension type: primary hypertension Qualified Code(s): I10 - Essential (primary) hypertension Code(s): I10 - Essential (primary) hypertension Status: Chronic Assessment and Plan: Systolic in the 120s to 130s lately continue home BP medications Subjective Date/time seen: 12/25/22 12:45 Interval history: Patient is lying in bed. She feels better. We discussed at length fluid restriction to help the serum sodium and salt restriction to help her blood pressure. Exam Narrative: General: chronically ill appearing female in NAD Heart: normal S1 and S2; no ru Lungs: Breath sounds fairly clear. Occasional coarse Abdomen: soft, nontender, nondistended, positive bowel sounds Extremities: no cyanosis or clubbing; trace edema Skin: no nodules Objective Data Vital Signs Vital Signs: Vital Signs - 24 hr 12/24/22 13:16 12/24/22 13:30 12/24/22 13:40 Temperature 98.6 F Pulse Rate 86 84 88 Respiratory Rate 18 18 18 Blood Pressure 129/44 L Pulse Oximetry 98 Oxygen Delivery Oxygen Flow Rate Fraction of Inspired Oxygen 12/24/22 16:00 12/24/22 17:02 12/24/22 19:35 Temperature 98.3 F Pulse Rate 83 86 77 Respiratory Rate 18 Blood Pressure 129/57 L Pulse Oximetry 100 Oxygen Delivery Oxygen Flow Rate Fraction of Inspired Oxygen 12/24/22 20:51 12/24/22 20:52 12/24/22 21:00 Temperature Pulse Rate 80 80 82 Respiratory Rate 18 18 18 Blood Pressure Pulse Oximetry 98 Oxygen Delivery Nasal Cannula Oxygen Flow Rate 3 Fraction of Inspired Oxygen 12/24/22 20:00 12/24/22 20:00 12/25/22 00:00 Temperature Pulse Rate 76 82 82 Respiratory Rate 18 Blood Pressure Pulse Oximetry 98 Oxygen Delivery Nasal Cannula Oxygen Flow Rate 3 Fraction of Inspired Oxygen 32 12/25/22 01:39 12/25/22 01:51 12/25/22 04:00 Temperature Pulse Rate 77 82 85 Respiratory Rate 18 18 Blood Pressure Pulse Oximetry Oxygen Delivery Oxygen Flow Rate Fraction of Inspired Oxygen 12/25/22 06:00 12/25/22 08:27 12/25/22 08:27 Temperature 98.3 F Pulse Rate 77 83 Respiratory Rate 18 20 Blood Pressure 133/56 L Pulse Oximetry 98 96 Oxygen Delivery Nasal Cannula Oxygen Flow Rate 3 Fraction of Inspired Oxygen 12/25/22 09:25 12/25/22 08:00 Temperature Pulse Rate 82 Respiratory Rate Blood Pressure Pulse Oximetry 96 Oxygen Deliver
--- NOTE | 2022-12-25 13:15 | PM.IMPN ---
Progress Note: A&P Assessment and Plan (1) Pulmonary nodules: Code(s): R91.8 - Other nonspecific abnormal finding of lung field Status: Acute Assessment and Plan: Chest xray showed nodules in the bilateral apex Follow up with pulmonology as an o/p. Repeat chest xray in the am history of breast cancer and a smoking history - close f/u is absolutely essential. ' (2) Hypertension: Qualifiers: Hypertension type: primary hypertension Qualified Code(s): I10 - Essential (primary) hypertension Code(s): I10 - Essential (primary) hypertension Status: Chronic Assessment and Plan: Stable generally in the 120/130 sbp range. Current BP is 142/58 Continue home medications Trend BP adjust as indicated (3) Hyponatremia: Code(s): E87.1 - Hypo-osmolality and hyponatremia Status: Acute Assessment and Plan: Sodium has been 124-125 currently sodium is at 130 Sodium tabs, IV fluids, and lasix discontinued at this time Continue with fluid restriction baseline does appear to be low most likely the cause of her weakness Continue to trend She also wanted the liquid sodium chloride if she needs to continue, she stated she was on that before and it helpped (4) Community acquired pneumonia: Qualifiers: Laterality: unspecified laterality Qualified Code(s): J18.9 - Pneumonia, unspecified organism Code(s): J18.9 - Pneumonia, unspecified organism Status: Acute Assessment and Plan: Pseudomonas on cx, levaquin susceptible and now on levaquin. Final dose should be 12/25/22. High risk patient d/t severe chronic hypoxic resp. failure, will need close o/p f/u upon discharge. Repeat chest xray in the am (5) Chronic respiratory failure with hypoxia, on home oxygen therapy: Code(s): J96.11 - Chronic respiratory failure with hypoxia; Z99.81 - Dependence on supplemental oxygen Status: Acute Assessment and Plan: Continuing on home 3L, recently was 2L as an o/p but needed increase. Tolerating home oxygen well. (6) Chronic obstructive pulmonary disease: Qualifiers: COPD type: unspecified COPD Qualified Code(s): J44.9 - Chronic obstructive pulmonary disease, unspecified Code(s): J44.9 - Chronic obstructive pulmonary disease, unspecified Status: Chronic Assessment and Plan: PRN bronchodilators, not acutely exacerbated at this time. (7) Dysphasia: Code(s): R47.02 - Dysphasia Status: Acute Assessment and Plan: Overnight patient was noted to have a choking episode on meat Will have speech consulted for swallow study Consult GI for a possible intervention Soft and bite sized diet for now await further recommendations Time Spent With Patient Time: 41 minutes Time with patient: Greater than 35 minutes Subjective Date/time seen: 12/25/22 1315 Interval history: 12/25/22 1315 patient is lying in bed stating that she just is very tired. She also stated that she would like to just be on neb treatments. She is still coughing up stuff however seems to be better. She currently denies any chest pain, nausea, vomiting, diarrhea constipation. She is currently on her home setting of oxygen. Sodium this morning was 130 fluids and Lasix have been discontinued per Nephrology will see what sodium is tomorrow. 12/24/22 1115 Patient is doing better today. She stated that she feels just very tired and weak. She does have a little bit of shortness of breath however is not as bad. Sodium is better today at 128 She was having a problem about having to take the sodium and she would prefer the sodium liquid 12/23/22 Patient was resting in bed feeling okay. She did state that she was still short of breath and she was unable to Breathe in deep. She denies any jordan
--- NOTE | 2022-12-25 13:15 | P.PNIM_ITS ---
Progress Note: A&P Assessment and Plan (1) Pulmonary nodules: Code(s): R91.8 - Other nonspecific abnormal finding of lung field Status: Acute Assessment and Plan: * Chest xray showed nodules in the bilateral apex * Follow up with pulmonology as an o/p. * Repeat chest xray in the am * history of breast cancer and a smoking history - close f/u is absolutely essential. ' (2) Hypertension: Qualifiers: Hypertension type: primary hypertension Qualified Code(s): I10 - Essential (primary) hypertension Code(s): I10 - Essential (primary) hypertension Status: Chronic Assessment and Plan: * Stable generally in the 120/130 sbp range. * Current BP is 142/58 * Continue home medications * Trend BP * adjust as indicated (3) Hyponatremia: Code(s): E87.1 - Hypo-osmolality and hyponatremia Status: Acute Assessment and Plan: * Sodium has been 124-125 * currently sodium is at 130 * Sodium tabs, IV fluids, and lasix discontinued at this time * Continue with fluid restriction * baseline does appear to be low * most likely the cause of her weakness * Continue to trend * She also wanted the liquid sodium chloride if she needs to continue, she stated she was on that before and it helpped (4) Community acquired pneumonia: Qualifiers: Laterality: unspecified laterality Qualified Code(s): J18.9 - Pneumonia, unspecified organism Code(s): J18.9 - Pneumonia, unspecified organism Status: Acute Assessment and Plan: * Pseudomonas on cx, levaquin susceptible and now on levaquin. * Final dose should be 12/25/22. * High risk patient d/t severe chronic hypoxic resp. failure, will need close o/p f/u upon discharge. * Repeat chest xray in the am (5) Chronic respiratory failure with hypoxia, on home oxygen therapy: Code(s): J96.11 - Chronic respiratory failure with hypoxia; Z99.81 - Dependence on supplemental oxygen Status: Acute Assessment and Plan: * Continuing on home 3L, recently was 2L as an o/p but needed increase. Tolerating home oxygen well. (6) Chronic obstructive pulmonary disease: Qualifiers: COPD type: unspecified COPD Qualified Code(s): J44.9 - Chronic obstructive pulmonary disease, unspecified Code(s): J44.9 - Chronic obstructive pulmonary disease, unspecified Status: Chronic Assessment and Plan: * PRN bronchodilators, not acutely exacerbated at this time. (7) Dysphasia: Code(s): R47.02 - Dysphasia Status: Acute Assessment and Plan: * Overnight patient was noted to have a choking episode on meat * Will have speech consulted for swallow study * Consult GI for a possible intervention * Soft and bite sized diet for now * await further recommendations Time Spent With Patient Time: 41 minutes Time with patient: Greater than 35 minutes Subjective Date/time seen: 12/25/221314 Interval history: 12/25/221314 patient is lying in bed stating that she just is very tired. She also stated that she would like to just be on neb treatments. She is still coughing up stuff however seems to be better. She currently denies any chest pain, nausea, vomiting, diarrhea constipation. She is curren
[2022-12-25] MEDS: SILVERGEL (ELTA) 45 ML 1 APPLIC TOPICAL (15:30)
[2022-12-25] MEDS: levoFLOXacin 750 MG TABLET PO (15:30)
[2022-12-25] MEDS: NEBIVOLOL HCL 5 MG TABLET 10 MG PO (17:09)
[2022-12-26] VITALS (9 sets, daily range): BP systolic 131–152; BP diastolic 59–69; PULSE 67–82; RESP 18–21; TEMP 36.3–37.2; O2SAT 96–100
[2022-12-26] MEDS: LEVALBUTEROL NEB 1.25 MG/3 ML INHALATION (05:43)
[2022-12-26] MEDS: IPRATROPIUM BR 0.02% INH SOLN 0.5 MG/2.5 ML VIAL INHALATION (05:43)
[2022-12-26 05:53] LABS: Blood Urea Nitrogen 10 mg/dL (7-17); Calcium 8.5 mg/dL (8.4-10.2); Carbon Dioxide > 40 mmol/L (22-30); Chloride 87 mmol/L (98-107); Estimated CRCL calculation 63 ml/min; Estimated Glomerular Filt Rate > 60; Glucose 98 mg/dL (65-110); Potassium 3.8 mmol/L (3.4-5.0); Sodium 130 mmol/L (137-145)
--- NOTE | 2022-12-26 07:45 | PM.IMPN ---
Progress Note: A&P Assessment and Plan (1) Pulmonary nodules: Code(s): R91.8 - Other nonspecific abnormal finding of lung field Status: Acute Assessment and Plan: Chest xray showed nodules in the bilateral apex Follow up with pulmonology as an o/p. Chest xray from 12/26/22 small left pleural effusion with stable biapical irregular nodular opacities history of breast cancer and a smoking history - close f/u is absolutely essential. ' (2) Hypertension: Qualifiers: Hypertension type: primary hypertension Qualified Code(s): I10 - Essential (primary) hypertension Code(s): I10 - Essential (primary) hypertension Status: Chronic Assessment and Plan: Stable generally in the 120/130 sbp range. Current BP is 142/59 Continue home medications Trend BP adjust as indicated (3) Hyponatremia: Code(s): E87.1 - Hypo-osmolality and hyponatremia Status: Acute Assessment and Plan: Sodium has been 124-125 currently sodium is at 130 again today 12/26/22 Sodium tabs, IV fluids, and lasix discontinued per nephrology Continue with fluid restriction baseline does appear to be low most likely the cause of her weakness Continue to trend She also wanted the liquid sodium chloride if she needs to continue, she stated she was on that before and it helpped (4) Community acquired pneumonia: Qualifiers: Laterality: unspecified laterality Qualified Code(s): J18.9 - Pneumonia, unspecified organism Code(s): J18.9 - Pneumonia, unspecified organism Status: Acute Assessment and Plan: Pseudomonas on cx, levaquin susceptible and now on levaquin. Final dose should be 12/25/22. completed High risk patient d/t severe chronic hypoxic resp. failure, will need close o/p f/u upon discharge. Repeat chest xray 12/26/22 small left pleural effusion with stable biapical irregular nodular opacities (5) Chronic respiratory failure with hypoxia, on home oxygen therapy: Code(s): J96.11 - Chronic respiratory failure with hypoxia; Z99.81 - Dependence on supplemental oxygen Status: Acute Assessment and Plan: Continuing on home 3L, recently was 2L as an o/p but needed increase. Tolerating home oxygen well. Most likely at baseline Chest xray small left pleural effusion with stable biapical irregular nodular opacities MBS ordered as well aspiration could be contributing (6) Chronic obstructive pulmonary disease: Qualifiers: COPD type: unspecified COPD Qualified Code(s): J44.9 - Chronic obstructive pulmonary disease, unspecified Code(s): J44.9 - Chronic obstructive pulmonary disease, unspecified Status: Chronic Assessment and Plan: PRN bronchodilators, not acutely exacerbated at this time. (7) Dysphasia: Code(s): R47.02 - Dysphasia Status: Acute Assessment and Plan: Overnight patient was noted to have a choking episode on meat Will have speech consulted for swallow study Consult GI for a possible intervention Soft and bite sized diet for now Will have her follow up outpatient continue protonix Time Spent With Patient Time: 53 minutes Time with patient: Greater than 35 minutes Subjective Date/time seen: 12/26/22744 Interval history: 12/26/22744 She is laying in bes. She denies any current pain, chest pain, shortness of breath, nausea, vomiting, diarrhea, constipation. She did state that she feels her breathing is better today. She also stated that her cough is getting better and that she is able to get a lot of things up. She has been using her PAP therapy. She denies any current pain or burning. She states she is urinating okay. 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 Labs do appear to be stable at this time as well. 12/25/22 1315 patient is lying
--- NOTE | 2022-12-26 07:45 | P.PNIM_ITS ---
Progress Note: A&P Assessment and Plan (1) Pulmonary nodules: Code(s): R91.8 - Other nonspecific abnormal finding of lung field Status: Acute Assessment and Plan: * Chest xray showed nodules in the bilateral apex * Follow up with pulmonology as an o/p. * Chest xray from 12/26/22 small left pleural effusion with stable biapical irregular nodular opacities * history of breast cancer and a smoking history - close f/u is absolutely essential. ' (2) Hypertension: Qualifiers: Hypertension type: primary hypertension Qualified Code(s): I10 - Essential (primary) hypertension Code(s): I10 - Essential (primary) hypertension Status: Chronic Assessment and Plan: * Stable generally in the 120/130 sbp range. * Current BP is 142/59 * Continue home medications * Trend BP * adjust as indicated (3) Hyponatremia: Code(s): E87.1 - Hypo-osmolality and hyponatremia Status: Acute Assessment and Plan: * Sodium has been 124-125 * currently sodium is at 130 again today 12/26/22 * Sodium tabs, IV fluids, and lasix discontinued per nephrology * Continue with fluid restriction * baseline does appear to be low * most likely the cause of her weakness * Continue to trend * She also wanted the liquid sodium chloride if she needs to continue, she stated she was on that before and it helpped (4) Community acquired pneumonia: Qualifiers: Laterality: unspecified laterality Qualified Code(s): J18.9 - Pneumonia, unspecified organism Code(s): J18.9 - Pneumonia, unspecified organism Status: Acute Assessment and Plan: * Pseudomonas on cx, levaquin susceptible and now on levaquin. * Final dose should be 12/25/22. completed * High risk patient d/t severe chronic hypoxic resp. failure, will need close o/p f/u upon discharge. * Repeat chest xray 12/26/22 small left pleural effusion with stable biapical irregular nodular opacities (5) Chronic respiratory failure with hypoxia, on home oxygen therapy: Code(s): J96.11 - Chronic respiratory failure with hypoxia; Z99.81 - Dependence on supplemental oxygen Status: Acute Assessment and Plan: * Continuing on home 3L, recently was 2L as an o/p but needed increase. Tolerating home oxygen well. * Most likely at baseline * Chest xray small left pleural effusion with stable biapical irregular nodular opacities * MBS ordered as well aspiration could be contributing (6) Chronic obstructive pulmonary disease: Qualifiers: COPD type: unspecified COPD Qualified Code(s): J44.9 - Chronic obstructive pulmonary disease, unspecified Code(s): J44.9 - Chronic obstructive pulmonary disease, unspecified Status: Chronic Assessment and Plan: * PRN bronchodilators, not acutely exacerbated at this time. (7) Dysphasia: Code(s): R47.02 - Dysphasia Status: Acute Assessment and Plan: * Overnight patient was noted to have a choking episode on meat * Will have speech consulted for swallow study * Consult GI for a possible intervention * Soft and bite sized diet for now * Will have her follow up outpatient continue protonix Time Spent With Patient Time: 53 minutes Time with patient: Greater than 35 minutes
[2022-12-26] MEDS: FLUTICASONE/SALMETEROL 115-21 MCG INHALER 1 PUFF 2 PUFF INHALATION ×2 (07:52→20:15)
--- NOTE | 2022-12-26 09:06 | WPDGICN ---
Assessment and Plan Assessment and plan (1) Dysphagia: Code(s): R13.10 - Dysphagia, unspecified Status: Acute Assessment and Plan: Patient with dysphagia. She has difficulty swallowing large pieces of food such as meat. Known to have esophageal stricture ring and in fact had a food impaction in 2020. Follow-up EGD is anticipated but should be deferred until her respiratory status has improved and pneumonia has cleared. This can be done as an outpatient. In the interim patient should be on a soft diet and avoid meat. Continued proton there therapy Protonix 40mg p.o. daily is advised for the presumption of acid reflux as etiology. (2) Pneumonia: Code(s): J18.9 - Pneumonia, unspecified organism Status: Acute (3) COPD (chronic obstructive pulmonary disease): Code(s): J44.9 - Chronic obstructive pulmonary disease, unspecified Status: Acute GI Consult Note Consult date/time: 12/26/22 09:06 Reason for consult: Dysphagia HPI: Caridad Eli is a 72 year old female I am asked to see at the request of the hospitalist service because of difficulty swallowing. Patient has a history of COPD. Admitted to the hospital with pneumonia and respiratory failure. She is on chronic home oxygen but has required additional oxygen during hospital stay. She continues to have a cough productive of phlegm. She remains somewhat short of breath this morning. Patient has a history of a food impaction in 2020. This was removed endoscopically. Patient has not had follow-up endoscopy as originally anticipated. She continues to have difficulty swallowing intermittently typically with meat and large pieces of food. During her hospital stay apparently had some difficulty swallowing me yesterday. Patient denies any significant heartburn, Nor abdominal pain at present. Family history is noncontributory. Review of Systems Review of Systems: Review of systems noncontributory. [facility] Past Medical History Medical History (Updated 12/26/22 @ 06:04 by CHARLES Varela) Breast cancer Status post bilateral mastectomy and chemoradiation. Chronic obstructive pulmonary disease Chronic respiratory failure with hypoxia, on home oxygen therapy Diverticulosis GI bleed (2009) Attributed to bleeding ulcers. Hypertension Peptic ulcer Tobacco dependence Surgical History Surgical History (Updated 12/14/22 @ 23:27 by Elda Watt PA-C) History of bilateral mastectomy History of section History of tubal ligation Family History Family History Father Cerebrovascular accident Mother Cancer of mouth Sibling Hypertension Social History Social History (Updated 12/14/22 @ 23:27 by Elda Watt PA-C) Social History: Surrogate medical decision maker: Natalie Cabral, sibling. Code status: Full code. Smoking packs per day: 0.5 Smoking cigarettes per day: 10.0 Years smoked: 55 Smoking pack-years: 27.50 Smoking status: Current every day smoker Alcohol intake: never Substance use: never Substance use type: does not use Lack of Transportation: No Lack of Food: Never True Current Housing: I Have Housing Concerned About Future Housing: No Difficulty Paying Gas/Electric Bills: No Difficulty Paying for Meds: No Currently Unemployed: No Education: High School Diploma/GED Difficulty w/ Childcare or Family Care: No Living arrangements: alone Additional living arrangements comments: The patient lives in her own home in [place]. Spiritual care concerns: No Meds Home Medications and Allergies Home Medications Medication Instructions Recorded Confirmed Type albuterol sulfate 90 mcg/actuation 1 puff inhalation DAILY 06/10/21 12/14/22 History aerosol inhaler budesonide-formoterol HFA 160 1 puff inhalation DAILY 06/10/21 12/14/22 History mcg-4.5 mcg/actuation aeroso
[2022-12-26] MEDS: PANTOPRAZOLE SODIUM IV 40 MG VIAL IV PUSH (10:04)
[2022-12-26] MEDS: ENOXAPARIN 40 MG/0.4 ML SYRINGE SUB-Q (10:04)
[2022-12-26] MEDS: MAGNESIUM OXIDE 400 MG TABLET PO (10:04)
[2022-12-26] MEDS: guaiFENesin 12 HR 600 MG TABCR PO ×2 (10:04→20:45)
[2022-12-26] MEDS: SILVERGEL (ELTA) 45 ML 1 APPLIC TOPICAL (10:05)
[2022-12-26] MEDS: SALINE 0.65% NAS SOLN 44 ML BTL 1 SPRAY NASAL (10:06)
--- NOTE | 2022-12-26 10:09 | PCOTNOTE ---
The patient treatment was not able to be completed on 12/26/2022 due to Patient out for swallow study. Will plan to continue treatment per plan of care.
--- NOTE | 2022-12-26 11:13 | P.PNNP_ITS ---
Progress Note: A&P Assessment and Plan (1) Hyponatremia: Code(s): E87.1 - Hypo-osmolality and hyponatremia Status: Acute Assessment and Plan: * improving * acute versus chronic versus acute on chronic?? * no previous lab testing to compare to...however, suspicion falls on chronicity * presented with sodium of 120mmol/L * multiple risk factors of hyponatremia: * lung disease/COPD * pneumonia * pulmonary nodules * history of malignancy * PRN diuretic therapy * prerenal factors * work-up and evaluation to date: * TSH okay * cortisol okay * SPEP and UPEP pending * urine electrolytes prerenal (on admission) - s/p IVFs * continue with fluid restriction for now * follow sodium levels (2) Pneumonia: Code(s): J18.9 - Pneumonia, unspecified organism Status: Acute Assessment and Plan: * suspected on admission * sputum culture with Pseudomonas * on Levaquin (3) Chronic obstructive pulmonary disease: Qualifiers: COPD type: unspecified COPD Qualified Code(s): J44.9 - Chronic obstructive pulmonary disease, unspecified Code(s): J44.9 - Chronic obstructive pulmonary disease, unspecified Status: Chronic Assessment and Plan: * on supplemental oxygen, inhalers, and nebulizers * continue supportive therapy (4) Hypertension: Qualifiers: Hypertension type: primary hypertension Qualified Code(s): I10 - Essential (primary) hypertension Code(s): I10 - Essential (primary) hypertension Status: Chronic Assessment and Plan: * reasonable control * continue home BP medications * follow trend of hemodynamics Will continue to follow. Subjective Date/time seen: 12/26/22 11:13 Interval history: Follow-up for hyponatremia. Chart reviewed since last seen; sodium level has improved with current interventions (weaned off salt tabs and just on fluid restriction); seen by GI with recommendations noted. Exam Narrative: General: chronically ill appearing female in NAD Heart: normal S1 and S2; no ru Lungs: coarse breath sounds noted Abdomen: soft, nontender, nondistended, positive bowel sounds Extremities: no cyanosis or clubbing; trace edema Skin: warm and dry Objective Data Vital Signs Vital Signs: Vital Signs Temp Pulse Resp BP Pulse Ox O2 Del Method O2 Flow Rate 12/26/22 05:45 80 18 96 Nasal Cannula 3 12/26/22 05:45 78 20 12/26/22 05:47 97.3 F L 79 18 142/59 H 100 12/26/22 04:00 74 12/26/22 00:00 78 12/25/22 20:00 84 18 97 Nasal Cannula 3 12/25/22 20:00 86 12/25/22 20:22 98.1 F 84 18 139/48 L 97 12/25/22 17:09 85 12/25/22 16:00 88 12/25/22 14:27 97.6 F 83 18 142/58 H 98 12/25/22 14:09 82 20 12/25/22 13:57 80 20 12/25/22 12:00 87 Intake/Output Intake/Output: Intake & Output 12/23/22 12/24/22 12/25/22 12/26/22 23:59 23:59 23:59 23:59 Intake Total 1080 790 560 240 Output Total 1999 217 615 300 Balance -920 -60 -55 -60 Meds/Results Medications: Active Medications Gener
--- NOTE | 2022-12-26 11:13 | PM.PNNEP ---
Progress Note: A&P Assessment and Plan (1) Hyponatremia: Code(s): E87.1 - Hypo-osmolality and hyponatremia Status: Acute Assessment and Plan: improving acute versus chronic versus acute on chronic?? no previous lab testing to compare to...however, suspicion falls on chronicity presented with sodium of 120mmol/L multiple risk factors of hyponatremia: lung disease/COPD pneumonia pulmonary nodules history of malignancy PRN diuretic therapy prerenal factors work-up and evaluation to date: TSH okay cortisol okay SPEP and UPEP pending urine electrolytes prerenal (on admission) - s/p IVFs continue with fluid restriction for now follow sodium levels (2) Pneumonia: Code(s): J18.9 - Pneumonia, unspecified organism Status: Acute Assessment and Plan: suspected on admission sputum culture with Pseudomonas on Levaquin (3) Chronic obstructive pulmonary disease: Qualifiers: COPD type: unspecified COPD Qualified Code(s): J44.9 - Chronic obstructive pulmonary disease, unspecified Code(s): J44.9 - Chronic obstructive pulmonary disease, unspecified Status: Chronic Assessment and Plan: on supplemental oxygen, inhalers, and nebulizers continue supportive therapy (4) Hypertension: Qualifiers: Hypertension type: primary hypertension Qualified Code(s): I10 - Essential (primary) hypertension Code(s): I10 - Essential (primary) hypertension Status: Chronic Assessment and Plan: reasonable control continue home BP medications follow trend of hemodynamics Will continue to follow. Subjective Date/time seen: 12/26/22 11:13 Interval history: Follow-up for hyponatremia. Chart reviewed since last seen; sodium level has improved with current interventions (weaned off salt tabs and just on fluid restriction); seen by GI with recommendations noted. Exam Narrative: General: chronically ill appearing female in NAD Heart: normal S1 and S2; no ru Lungs: coarse breath sounds noted Abdomen: soft, nontender, nondistended, positive bowel sounds Extremities: no cyanosis or clubbing; trace edema Skin: warm and dry Objective Data Vital Signs Vital Signs: Vital Signs Temp Pulse Resp BP Pulse Ox O2 Del Method O2 Flow Rate 12/26/22 05:45 80 18 96 Nasal Cannula 3 12/26/22 05:45 78 20 12/26/22 05:47 97.3 F L 79 18 142/59 H 100 12/26/22 04:00 74 12/26/22 00:00 78 12/25/22 20:00 84 18 97 Nasal Cannula 3 12/25/22 20:00 86 12/25/22 20:22 98.1 F 84 18 139/48 L 97 12/25/22 17:09 85 12/25/22 16:00 88 12/25/22 14:27 97.6 F 83 18 142/58 H 98 12/25/22 14:09 82 20 12/25/22 13:57 80 20 12/25/22 12:00 87 Intake/Output Intake/Output: Intake & Output 12/23/22 12/24/22 12/25/22 12/26/22 23:59 23:59 23:59 23:59 Intake Total 1080 790 560 240 Output Total 6144 258 615 300 Balance -920 -60 -55 -60 Meds/Results Medications: Active Medications Generic Name Dose Route Start Last Admin Trade Name Freq PRN Reason Stop Dose Admin Acetaminophen 650 mg 12/14/22 23:34 12/22/22 20:41 Acetaminophen 325 Mg Tablet PO 650 mg Q6H PRN Administration Mild Pain (1-3) or Fever Diltiazem HCl 240 mg 12/15/22 09:00 12/26/22 10:03 Diltiazem Hcl Cd 240 Mg Cap.Er.24h PO 240 mg DAILY PK Administration Docusate Sodium 100 mg 12/15/22 21:00 12/26/22 10:03 Docusate Sodium 100 Mg Capsule PO Not Given Q12HR PK Enoxaparin Sodium 40 mg 12/15/22 09:00 12/26/22 10:04 Enoxaparin 40 Mg/0.4 Ml Syringe SUB-Q 40 mg DAILY PK Administration Guaifenesin 600 mg 12/15/22 21:00 12/26/22 10:04 Guaifenesin 12 Hr 600 Mg Tabcr PO 600 mg Q12HR PK Administration Ipratropium Russell 0.5 mg 12/25/22 15:49 12/26/22 05:43 Ipratropium Br 0.02% Inh Isabella
--- NOTE | 2022-12-26 13:29 | PCSTNOTE ---
Please refer to the Modified Barium Swallow Evaluation in the EMR.
[2022-12-26 15:12] LABS: Albumin 3.1 g/dL (3.8-4.8); Alpha 1 Globulin 0.5 g/dL (0.2-0.3); Alpha 2 Globulin 0.8 g/dL (0.5-0.9); Beta 1 Globulin 0.3 g/dL (0.4-0.6); Gamma Globulin 0.7 g/dL (0.8-1.7); Protein, Total 5.7 g/dL (6.1-8.1)
[2022-12-26] MEDS: NEBIVOLOL HCL 5 MG TABLET 10 MG PO (17:49)
[2022-12-27 06:09] LABS: Basophils Absolute Auto 0.1 K/mm3 (0.0-0.1); Basophils Percent Auto 0.5 % (0.2-1.2); Eosinophils Percent Auto 0.1 % (0-4.4); Hematocrit 35.1 % (37.0-47.0); Immature Granulocyte Absolute 0.04 K/mm3 (0.00-0.031); Immature Granulocyte Percent A 0.4 % (0-0.5); Lymphocytes Absolute Auto 2.32 K/mm3 (0.9-3.2); Lymphocytes Percent Auto 25.4 % (18.3-44.2); Mean Corpuscular HGB Conc 31.3 g/dl (32-36); Mean Corpuscular Hemoglobin 29.2 pg (26-34); Mean Corpuscular Volume 93.1 fl (80-100); Mean Platelet Volume 7.5 fl (7.4-10.4); Monocytes Absolute Auto 0.7 K/mm3 (0.1-0.6); Monocytes Percent Auto 7.7 % (2.6-8.5); Neutrophils Percent Auto 65.9 % (45.5-73.1); Platelet Count Result 332 k/mm3 (150-375); Red Blood Count 3.77 M/mm3 (4.2-5.4); Red Cell Distribution Width 13.4 % (11.5-14.5); White Blood Count 9.2 K/mm3 (4.5-10.0)
[2022-12-27 06:26] LABS: Alanine Aminotransferase 17 U/L (6-35); Albumin Level 3.8 g/dL (3.5-5.1); Alkaline Phosphatase 97 U/L (38-126); Aspartate Amino Transferase 26 U/L (14-36); Bilirubin,Total 0.5 mg/dL (0.2-1.3); Blood Urea Nitrogen 8 mg/dL (7-17); Calcium 9.3 mg/dL (8.4-10.2); Carbon Dioxide > 40 mmol/L (22-30); Chloride 88 mmol/L (98-107); Estimated CRCL calculation 61 ml/min; Estimated Glomerular Filt Rate > 60; Glucose 132 mg/dL (65-110); Magnesium 2.1 mg/dL (1.6-2.3); Sodium 131 mmol/L (137-145)
--- NOTE | 2022-12-27 06:46 | P.PNIM_ITS ---
Progress Note: A&P Assessment and Plan (1) Pulmonary nodules: Code(s): R91.8 - Other nonspecific abnormal finding of lung field Status: Acute Assessment and Plan: * Chest xray showed nodules in the bilateral apex * Follow up with pulmonology as an o/p. * Chest xray from 12/26/22 small left pleural effusion with stable biapical irregular nodular opacities * history of breast cancer and a smoking history - close f/u is absolutely essential. ' (2) Hypertension: Qualifiers: Hypertension type: primary hypertension Qualified Code(s): I10 - Essential (primary) hypertension Code(s): I10 - Essential (primary) hypertension Status: Chronic Assessment and Plan: * Stable generally in the 120/130 sbp range. * Current BP is 131/69 * Continue home medications * Trend BP * adjust as indicated (3) Hyponatremia: Code(s): E87.1 - Hypo-osmolality and hyponatremia Status: Acute Assessment and Plan: * Sodium has been 124-125 * currently sodium is at 131 * Sodium tabs, IV fluids, and lasix discontinued per nephrology * Continue with fluid restriction * baseline does appear to be low * most likely the cause of her weakness * Continue to trend * She also wanted the liquid sodium chloride if she needs to continue, she stated she was on that before and it helpped (4) Community acquired pneumonia: Qualifiers: Laterality: unspecified laterality Qualified Code(s): J18.9 - Pneumonia, unspecified organism Code(s): J18.9 - Pneumonia, unspecified organism Status: Acute Assessment and Plan: * Pseudomonas on cx, levaquin susceptible and now on levaquin. * Final dose should be 12/25/22. completed * High risk patient d/t severe chronic hypoxic resp. failure, will need close o/p f/u upon discharge. * Repeat chest xray 12/26/22 small left pleural effusion with stable biapical irregular nodular opacities (5) Chronic respiratory failure with hypoxia, on home oxygen therapy: Code(s): J96.11 - Chronic respiratory failure with hypoxia; Z99.81 - Dependence on supplemental oxygen Status: Acute Assessment and Plan: * Continuing on home 3L, recently was 2L as an o/p but needed increase. Tolerating home oxygen well. * Most likely at baseline * Chest xray small left pleural effusion with stable biapical irregular nodular opacities * MBS ordered as well aspiration could be contributing (6) Chronic obstructive pulmonary disease: Qualifiers: COPD type: unspecified COPD Qualified Code(s): J44.9 - Chronic obstructive pulmonary disease, unspecified Code(s): J44.9 - Chronic obstructive pulmonary disease, unspecified Status: Chronic Assessment and Plan: * PRN bronchodilators, not acutely exacerbated at this time. (7) Dysphasia: Code(s): R47.02 - Dysphasia Status: Acute Assessment and Plan: * Overnight patient was noted to have a choking episode on meat * Will have speech consulted for swallow study * Consult GI for a possible intervention * Soft and bite sized diet for now * Will have her follow up outpatient continue protonix Time Spent With Patient Time: 43 minutes Time with patient: Greater than 35 minutes Subjective
--- NOTE | 2022-12-27 06:46 | PM.IMPN ---
Progress Note: A&P Assessment and Plan (1) Pulmonary nodules: Code(s): R91.8 - Other nonspecific abnormal finding of lung field Status: Acute Assessment and Plan: Chest xray showed nodules in the bilateral apex Follow up with pulmonology as an o/p. Chest xray from 12/26/22 small left pleural effusion with stable biapical irregular nodular opacities history of breast cancer and a smoking history - close f/u is absolutely essential. ' (2) Hypertension: Qualifiers: Hypertension type: primary hypertension Qualified Code(s): I10 - Essential (primary) hypertension Code(s): I10 - Essential (primary) hypertension Status: Chronic Assessment and Plan: Stable generally in the 120/130 sbp range. Current BP is 131/69 Continue home medications Trend BP adjust as indicated (3) Hyponatremia: Code(s): E87.1 - Hypo-osmolality and hyponatremia Status: Acute Assessment and Plan: Sodium has been 124-125 currently sodium is at 131 Sodium tabs, IV fluids, and lasix discontinued per nephrology Continue with fluid restriction baseline does appear to be low most likely the cause of her weakness Continue to trend She also wanted the liquid sodium chloride if she needs to continue, she stated she was on that before and it helpped (4) Community acquired pneumonia: Qualifiers: Laterality: unspecified laterality Qualified Code(s): J18.9 - Pneumonia, unspecified organism Code(s): J18.9 - Pneumonia, unspecified organism Status: Acute Assessment and Plan: Pseudomonas on cx, levaquin susceptible and now on levaquin. Final dose should be 12/25/22. completed High risk patient d/t severe chronic hypoxic resp. failure, will need close o/p f/u upon discharge. Repeat chest xray 12/26/22 small left pleural effusion with stable biapical irregular nodular opacities (5) Chronic respiratory failure with hypoxia, on home oxygen therapy: Code(s): J96.11 - Chronic respiratory failure with hypoxia; Z99.81 - Dependence on supplemental oxygen Status: Acute Assessment and Plan: Continuing on home 3L, recently was 2L as an o/p but needed increase. Tolerating home oxygen well. Most likely at baseline Chest xray small left pleural effusion with stable biapical irregular nodular opacities MBS ordered as well aspiration could be contributing (6) Chronic obstructive pulmonary disease: Qualifiers: COPD type: unspecified COPD Qualified Code(s): J44.9 - Chronic obstructive pulmonary disease, unspecified Code(s): J44.9 - Chronic obstructive pulmonary disease, unspecified Status: Chronic Assessment and Plan: PRN bronchodilators, not acutely exacerbated at this time. (7) Dysphasia: Code(s): R47.02 - Dysphasia Status: Acute Assessment and Plan: Overnight patient was noted to have a choking episode on meat Will have speech consulted for swallow study Consult GI for a possible intervention Soft and bite sized diet for now Will have her follow up outpatient continue protonix Time Spent With Patient Time: 43 minutes Time with patient: Greater than 35 minutes Subjective Date/time seen: 12/27/22 06:46 Interval history: 12/27/22 This is a pleasant 71-year-old female smoker with chronic respiratory failure on 3 L nasal cannula, chronic obstructive pulmonary disease, and history of breast cancer who presented to the emergency department via EMS from home for evaluation of shortness of breath. Upon arrival patient was noted to be hypoxic and oxygen was increased. Chest xray showed bilateral Apical nodules Likely metastatic cancer or infectious in nature. patient was given full treatment with Levaquin and IV cefepime and completed her last dose on 12/25/2022. sputum culture w
[2022-12-27 06:49] VITALS: BP 164/62; PULSE 70; RESP 21; TEMP 36.4; O2SAT 100
[2022-12-27 07:29] VITALS: PULSE 70; RESP 18; O2SAT 96
[2022-12-27] MEDS: FLUTICASONE/SALMETEROL 115-21 MCG INHALER 1 PUFF 2 PUFF INHALATION (07:29)
--- NOTE | 2022-12-27 08:25 | WPDGIPROGNO ---
Progress Note: A&P Assessment and Plan (1) Dysphagia: Code(s): R13.10 - Dysphagia, unspecified Status: Acute Assessment and Plan: Patient with dysphagia to solid foods. She has a history of food impaction at 1 point in the past. Plan for EGD and dilatation, but this should be deferred until pneumonia has been treated in her respiratory status more stable. This can be done as an outpatient. She patient would benefit from remaining on a soft diet in the interim. She should avoid meat and other foods that might cause her to have difficulties. (2) Pneumonia: Code(s): J18.9 - Pneumonia, unspecified organism Status: Acute (3) Chronic obstructive pulmonary disease: Qualifiers: COPD type: unspecified COPD Qualified Code(s): J44.9 - Chronic obstructive pulmonary disease, unspecified Code(s): J44.9 - Chronic obstructive pulmonary disease, unspecified Status: Chronic Subjective Date/time seen: 12/27/22 08:25 Interval history: Patient appears alert comfortable this morning. She states she did have an episode where she became short of breath early this morning. She denies any abdominal pain. Tolerating soft diet at present. Still somewhat short of breath. Chronically on supplemental oxygen. Review of Systems Review of Systems: Review of systems noncontributory. Exam Narrative: Physical exam reveals patient to be alert. Comfortable at rest. HEENT exam reveals no icterus. She is on nasal cannula oxygen. Lungs reveal a few rhonchi. Heart without murmur. Abdomen bowel sounds present soft nontender. Objective Data Vital Signs Vital Signs: Vital Signs - 24 hr 12/26/22 12:00 12/26/22 14:45 12/26/22 17:49 Temperature 99.0 F Pulse Rate 77 82 75 Respiratory Rate 20 Blood Pressure 152/64 H Pulse Oximetry 98 12/26/22 22:20 12/27/22 06:49 Temperature 97.3 F L 97.5 F L Pulse Rate 67 70 Respiratory Rate 21 H 21 H Blood Pressure 131/69 164/62 H Pulse Oximetry 100 100 Intake/Output Intake/Output: Intake & Output 12/24/22 12/25/22 12/26/22 12/27/22 23:59 23:59 23:59 23:59 Intake Total 790 560 480 240 Output Total 850 615 300 600 Balance -60 -55 180 -360 Meds/Results Medications: Active Medications Generic Name Dose Route Start Last Admin Trade Name Tawandaq PRN Reason Stop Dose Admin Acetaminophen 650 mg 12/14/22 23:34 12/22/22 20:41 Acetaminophen 325 Mg Tablet PO 650 mg Q6H PRN Administration Mild Pain (1-3) or Fever Diltiazem HCl 240 mg 12/15/22 09:00 12/26/22 10:03 Diltiazem Hcl Cd 240 Mg Cap.Er.24h PO 240 mg DAILY PK Administration Docusate Sodium 100 mg 12/15/22 21:00 12/26/22 21:04 Docusate Sodium 100 Mg Capsule PO Not Given Q12HR PK Enoxaparin Sodium 40 mg 12/15/22 09:00 12/26/22 10:04 Enoxaparin 40 Mg/0.4 Ml Syringe SUB-Q 40 mg DAILY PK Administration Guaifenesin 600 mg 12/15/22 21:00 12/26/22 20:45 Guaifenesin 12 Hr 600 Mg Tabcr PO 600 mg Q12HR PK Administration Ipratropium [place] 0.5 mg 12/25/22 15:49 12/26/22 05:43 Ipratropium Br 0.02% Inh Soln 0.5 Mg/2.5 Ml Vial INHALATION 0.5 mg Q6HRT PRN Administration shortness of breath/wheezes Levalbuterol HCl 1.25 mg 12/25/22 15:49 12/26/22 05:43 Levalbuterol Neb 1.25 Mg/3 Ml INHALATION 1.25 mg Q6HRT PRN Administration shortness of breath/wheezes Magnesium Oxide 400 mg 12/20/22 09:00 12/26/22 10:04 Magnesium Oxide 400 Mg Tablet PO 400 mg DAILY PK Administration Nebivolol 10 mg 12/19/22 18:00 12/26/22 17:49 Nebivolol Hcl 5 Mg Tablet PO 10 mg QPM PK Administration Pantoprazole Sodium 40 mg 12/26/22 09:00 12/26/22 10:04 Pantoprazole Sodium Iv 40 Mg Vial IV PUSH 40 mg QAM PK Administration Polyethylene Glycol 17 gm 12/15/22 18:27 12/20/22 08:59 Polyethylene Glycol 3350 17 Gm Powd.Pack PO 17 gm QAM PRN Administration Const
[2022-12-27] MEDS: ENOXAPARIN 40 MG/0.4 ML SYRINGE SUB-Q (09:27)
[2022-12-27] MEDS: PANTOPRAZOLE SODIUM IV 40 MG VIAL IV PUSH (09:28)
[2022-12-27] MEDS: MAGNESIUM OXIDE 400 MG TABLET PO (09:28)
[2022-12-27] MEDS: guaiFENesin 12 HR 600 MG TABCR PO (09:28)
[2022-12-27] MEDS: SILVERGEL (ELTA) 45 ML 1 APPLIC TOPICAL (09:30)
[2022-12-27] MEDS: SALINE 0.65% NAS SOLN 44 ML BTL 1 SPRAY NASAL (09:41)
[2022-12-27 09:42] VITALS: RESP 18; O2SAT 96
--- NOTE | 2022-12-27 10:44 | P.PNNP_ITS ---
Progress Note: A&P Assessment and Plan (1) Hyponatremia: Code(s): E87.1 - Hypo-osmolality and hyponatremia Status: Acute Assessment and Plan: * improving * acute versus chronic versus acute on chronic?? * no previous lab testing to compare to...however, suspicion falls on chronicity * presented with sodium of 120mmol/L * multiple risk factors of hyponatremia: * lung disease/COPD * pneumonia * pulmonary nodules * history of malignancy * PRN diuretic therapy * prerenal factors * work-up and evaluation to date: * TSH okay * cortisol okay * SPEP and UPEP pending * urine electrolytes prerenal (on admission) - s/p IVFs * continue with fluid restriction for now * follow sodium levels (2) Pneumonia: Code(s): J18.9 - Pneumonia, unspecified organism Status: Acute Assessment and Plan: * suspected on admission * sputum culture with Pseudomonas * on Levaquin (3) Chronic obstructive pulmonary disease: Qualifiers: COPD type: unspecified COPD Qualified Code(s): J44.9 - Chronic obstructive pulmonary disease, unspecified Code(s): J44.9 - Chronic obstructive pulmonary disease, unspecified Status: Chronic Assessment and Plan: * on supplemental oxygen, inhalers, and nebulizers * continue supportive therapy (4) Hypertension: Qualifiers: Hypertension type: primary hypertension Qualified Code(s): I10 - Essential (primary) hypertension Code(s): I10 - Essential (primary) hypertension Status: Chronic Assessment and Plan: * reasonable control * continue home BP medications * follow trend of hemodynamics Not much else to add -- will continue to follow from a distance. Subjective Date/time seen: 12/27/22 10:44 Interval history: Follow-up for hyponatremia. Appears to be doing reasonably well; breathing/respiratory status seems stable if not better; sodium levels holding steady if not improving with current inter ventions; no issues/events overnight or earlier today. Exam Narrative: General: chronically ill appearing female in NAD Heart: normal S1 and S2; no ru Lungs: coarse breath sounds noted Abdomen: soft, nontender, nondistended, positive bowel sounds Extremities: no cyanosis or clubbing; trace edema Skin: no rash or nodules Objective Data Vital Signs Vital Signs: Vital Signs Temp Pulse Resp BP Pulse Ox O2 Del Method O2 Flow Rate 12/27/22 09:42 18 96 Nasal Cannula 3.5 12/27/22 07:29 70 18 12/27/22 07:29 70 18 96 Nasal Cannula 3 12/27/22 06:49 97.5 F L 70 21 H 164/62 H 100 12/26/22 22:20 97.3 F L 67 21 H 131/69 100 12/26/22 17:49 75 12/26/22 14:45 99.0 F 82 20 152/64 H 98 Intake/Output Intake/Output: Intake & Output 12/24/22 12/25/22 12/26/22 12/27/22 23:59 23:59 23:59 23:59 Intake Total 790 560 480 480 Output Total 850 615 300 600 Balance -60 -55 180 -120 Meds/Results Medications: Active Medications Generic Name Dose Route Start Last Admin Trade Name Freq PRN Reason Stop Dose Admin Acetaminophen 650 mg 12/14/22 23:34 12/22/22 20:41 Acetaminophen 325
--- NOTE | 2022-12-27 10:44 | PM.PNNEP ---
Progress Note: A&P Assessment and Plan (1) Hyponatremia: Code(s): E87.1 - Hypo-osmolality and hyponatremia Status: Acute Assessment and Plan: improving acute versus chronic versus acute on chronic?? no previous lab testing to compare to...however, suspicion falls on chronicity presented with sodium of 120mmol/L multiple risk factors of hyponatremia: lung disease/COPD pneumonia pulmonary nodules history of malignancy PRN diuretic therapy prerenal factors work-up and evaluation to date: TSH okay cortisol okay SPEP and UPEP pending urine electrolytes prerenal (on admission) - s/p IVFs continue with fluid restriction for now follow sodium levels (2) Pneumonia: Code(s): J18.9 - Pneumonia, unspecified organism Status: Acute Assessment and Plan: suspected on admission sputum culture with Pseudomonas on Levaquin (3) Chronic obstructive pulmonary disease: Qualifiers: COPD type: unspecified COPD Qualified Code(s): J44.9 - Chronic obstructive pulmonary disease, unspecified Code(s): J44.9 - Chronic obstructive pulmonary disease, unspecified Status: Chronic Assessment and Plan: on supplemental oxygen, inhalers, and nebulizers continue supportive therapy (4) Hypertension: Qualifiers: Hypertension type: primary hypertension Qualified Code(s): I10 - Essential (primary) hypertension Code(s): I10 - Essential (primary) hypertension Status: Chronic Assessment and Plan: reasonable control continue home BP medications follow trend of hemodynamics Not much else to add -- will continue to follow from a distance. Subjective Date/time seen: 12/27/22 10:44 Interval history: Follow-up for hyponatremia. Appears to be doing reasonably well; breathing/respiratory status seems stable if not better; sodium levels holding steady if not improving with current interventions; no issues/events overnight or earlier today. Exam Narrative: General: chronically ill appearing female in NAD Heart: normal S1 and S2; no ru Lungs: coarse breath sounds noted Abdomen: soft, nontender, nondistended, positive bowel sounds Extremities: no cyanosis or clubbing; trace edema Skin: no rash or nodules Objective Data Vital Signs Vital Signs: Vital Signs Temp Pulse Resp BP Pulse Ox O2 Del Method O2 Flow Rate 12/27/22 09:42 18 96 Nasal Cannula 3.5 12/27/22 07:29 70 18 12/27/22 07:29 70 18 96 Nasal Cannula 3 12/27/22 06:49 97.5 F L 70 21 H 164/62 H 100 12/26/22 22:20 97.3 F L 67 21 H 131/69 100 12/26/22 17:49 75 12/26/22 14:45 99.0 F 82 20 152/64 H 98 Intake/Output Intake/Output: Intake & Output 12/24/22 12/25/22 12/26/22 12/27/22 23:59 23:59 23:59 23:59 Intake Total 790 560 480 480 Output Total 850 615 300 600 Balance -60 -55 180 -120 Meds/Results Medications: Active Medications Generic Name Dose Route Start Last Admin Trade Name Freq PRN Reason Stop Dose Admin Acetaminophen 650 mg 12/14/22 23:34 12/22/22 20:41 Acetaminophen 325 Mg Tablet PO 650 mg Q6H PRN Administration Mild Pain (1-3) or Fever Diltiazem HCl 240 mg 12/15/22 09:00 12/27/22 09:28 Diltiazem Hcl Cd 240 Mg Cap.Er.24h PO 240 mg DAILY PK Administration Docusate Sodium 100 mg 12/15/22 21:00 12/27/22 09:29 Docusate Sodium 100 Mg Capsule PO Not Given Q12HR PK Enoxaparin Sodium 40 mg 12/15/22 09:00 12/27/22 09:27 Enoxaparin 40 Mg/0.4 Ml Syringe SUB-Q 40 mg DAILY PK Administration Guaifenesin 600 mg 12/15/22 21:00 12/27/22 09:28 Guaifenesin 12 Hr 600 Mg Tabcr PO 600 mg Q12HR PK Administration Ipratropium [place] 0.5 mg 12/25/22 15:49 12/26/22 05:43 Ipratropium Br 0.02% Inh Soln 0.5 Mg/2.5 Ml Vial INHALATION 0.5 mg Q6HRT PRN Administration shortness of breath/wheezes Levalb
--- NOTE | 2022-12-27 12:17 | P.DS_ITS ---
DS: Admitting Diagnosis Discharge Date 12/27/22 1145 Admitting Diagnosis PNA, Pulmonary nodules, hypertension, hyponatremia DS: Discharge Diagnosis Discharge Diagnosis (1) Pulmonary nodules: Code(s): R91.8 - Other nonspecific abnormal finding of lung field Status: Acute Assessment and Plan: * Chest xray showed nodules in the bilateral apex * Follow up with pulmonology as an o/p. * Chest xray from 12/26/22 small left pleural effusion with stable biapical irregular nodular opacities * history of breast cancer and a smoking history - close f/u is absolutely essential. ' (2) Hypertension: Qualifiers: Hypertension type: primary hypertension Qualified Code(s): I10 - Essential (primary) hypertension Code(s): I10 - Essential (primary) hypertension Status: Chronic Assessment and Plan: * Stable generally in the 120/130 sbp range. * Current BP is 131/69 * Continue home medications * Trend BP * adjust as indicated (3) Hyponatremia: Code(s): E87.1 - Hypo-osmolality and hyponatremia Status: Acute Assessment and Plan: * Sodium has been 124-125 * currently sodium is at 131 * Sodium tabs, IV fluids, and lasix discontinued per nephrology * Continue with fluid restriction * baseline does appear to be low * most likely the cause of her weakness * Continue to trend * She also wanted the liquid sodium chloride if she needs to continue, she stated she was on that before and it helpped (4) Community acquired pneumonia: Qualifiers: Laterality: unspecified laterality Qualified Code(s): J18.9 - Pneumonia, unspecified organism Code(s): J18.9 - Pneumonia, unspecified organism Status: Acute Assessment and Plan: * Pseudomonas on cx, levaquin susceptible and now on levaquin. * Final dose should be 12/25/22. completed * High risk patient d/t severe chronic hypoxic resp. failure, will need close o/p f/u upon discharge. * Repeat chest xray 12/26/22 small left pleural effusion with stable biapical irregular nodular opacities (5) Chronic respiratory failure with hypoxia, on home oxygen therapy: Code(s): J96.11 - Chronic respiratory failure with hypoxia; Z99.81 - Dependence on supplemental oxygen Status: Acute Assessment and Plan: * Continuing on home 3L, recently was 2L as an o/p but needed increase. Tolerating home oxygen well. * Most likely at baseline * Chest xray small left pleural effusion with stable biapical irregular nodular opacities * MBS ordered as well aspiration could be contributing (6) Chronic obstructive pulmonary disease: Qualifiers: COPD type: unspecified COPD Qualified Code(s): J44.9 - Chronic obstructive pulmonary disease, unspecified Code(s): J44.9 - Chronic obstructive pulmonary disease, unspecified Status: Chronic Assessment and Plan: * PRN bronchodilators, not acutely exacerbated at this time. (7) Dysphasia: Code(s): R47.02 - Dysphasia Status: Acute Assessment and Plan: * Overnight patient was noted to have a choking episode on meat * Will have speech consulted for swallow study * Consult GI for a possible intervention * Soft and bite sized diet for now * Will have her follow up outpatient continue protonix
--- NOTE | 2022-12-27 12:17 | PM.DS ---
DS: Admitting Diagnosis Discharge Date 12/27/22 1145 Admitting Diagnosis PNA, Pulmonary nodules, hypertension, hyponatremia DS: Discharge Diagnosis Discharge Diagnosis (1) Pulmonary nodules: Code(s): R91.8 - Other nonspecific abnormal finding of lung field Status: Acute Assessment and Plan: Chest xray showed nodules in the bilateral apex Follow up with pulmonology as an o/p. Chest xray from 12/26/22 small left pleural effusion with stable biapical irregular nodular opacities history of breast cancer and a smoking history - close f/u is absolutely essential. ' (2) Hypertension: Qualifiers: Hypertension type: primary hypertension Qualified Code(s): I10 - Essential (primary) hypertension Code(s): I10 - Essential (primary) hypertension Status: Chronic Assessment and Plan: Stable generally in the 120/130 sbp range. Current BP is 131/69 Continue home medications Trend BP adjust as indicated (3) Hyponatremia: Code(s): E87.1 - Hypo-osmolality and hyponatremia Status: Acute Assessment and Plan: Sodium has been 124-125 currently sodium is at 131 Sodium tabs, IV fluids, and lasix discontinued per nephrology Continue with fluid restriction baseline does appear to be low most likely the cause of her weakness Continue to trend She also wanted the liquid sodium chloride if she needs to continue, she stated she was on that before and it helpped (4) Community acquired pneumonia: Qualifiers: Laterality: unspecified laterality Qualified Code(s): J18.9 - Pneumonia, unspecified organism Code(s): J18.9 - Pneumonia, unspecified organism Status: Acute Assessment and Plan: Pseudomonas on cx, levaquin susceptible and now on levaquin. Final dose should be 12/25/22. completed High risk patient d/t severe chronic hypoxic resp. failure, will need close o/p f/u upon discharge. Repeat chest xray 12/26/22 small left pleural effusion with stable biapical irregular nodular opacities (5) Chronic respiratory failure with hypoxia, on home oxygen therapy: Code(s): J96.11 - Chronic respiratory failure with hypoxia; Z99.81 - Dependence on supplemental oxygen Status: Acute Assessment and Plan: Continuing on home 3L, recently was 2L as an o/p but needed increase. Tolerating home oxygen well. Most likely at baseline Chest xray small left pleural effusion with stable biapical irregular nodular opacities MBS ordered as well aspiration could be contributing (6) Chronic obstructive pulmonary disease: Qualifiers: COPD type: unspecified COPD Qualified Code(s): J44.9 - Chronic obstructive pulmonary disease, unspecified Code(s): J44.9 - Chronic obstructive pulmonary disease, unspecified Status: Chronic Assessment and Plan: PRN bronchodilators, not acutely exacerbated at this time. (7) Dysphasia: Code(s): R47.02 - Dysphasia Status: Acute Assessment and Plan: Overnight patient was noted to have a choking episode on meat Will have speech consulted for swallow study Consult GI for a possible intervention Soft and bite sized diet for now Will have her follow up outpatient continue protonix DS: Summary Hospital Course Hospital Course: This is a pleasant 71-year-old female smoker with chronic respiratory failure on 3 L nasal cannula, chronic obstructive pulmonary disease, and history of breast cancer who presented to the emergency department via EMS from home for evaluation of shortness of breath.? Upon arrival patient was noted to be hypoxic and oxygen was increased.? Chest xray showed bilateral Apical nodules? Likely metastatic cancer or infectious in nature. patient was given full treatment with Levaquin and IV cefepime and completed her last dose on 12/25/2022. s
[2023-01-02 19:12] LABS: Creatinine, Random Urine 25 mg/dL (20-275); Total Protein/Creatinine Ratio 200 mg/g creat (24-184)
== END 2022-12-27 15:10 | disposition home health service (06) | DRG 177 ==
LOC: ANHED 13:52 → ANH2MED 14:31
PROVIDERS: Internal Medicine Nephrology; Nurse Practitioner Family; Physician Assistant; Admitting Provider Hospitalist; Emergency Provider Physician Assistant; PCP Internal Medicine; Visit Provider Nurse Practitioner
DX: J15.1 Pneumonia due to Pseudomonas (principal); E43 Unspecified severe protein-calorie malnutrition; E87.1 Hypo-osmolality and hyponatremia; J44.0 Chronic obstructive pulmonary disease with (acute) lower respiratory infection; J96.11 Chronic respiratory failure with hypoxia; Z68.1 Body mass index [BMI] 19.9 or less, adult; I10 Essential (primary) hypertension; E87.6 Hypokalemia; K57.30 Diverticulosis of large intestine without perforation or abscess without bleeding; R13.10 Dysphagia, unspecified; R91.8 Other nonspecific abnormal finding of lung field; F17.210 Nicotine dependence, cigarettes, uncomplicated; Z20.822 Contact with and (suspected) exposure to COVID-19; Z99.81 Dependence on supplemental oxygen; Z85.3 Personal history of malignant neoplasm of breast
CPT/HCPCS: 36415; 70450; 71045; 71260; 80048; 80053; 80069; 81001; 82533; 82550; 82570; 82803; 83605; 83735; 83880; 83930; 83935; 84100; 84155; 84156; 84165; 84166; 84295; 84300; 84443; 84540; 85025; 85027; 85610; 85730; 86738; 87070; 87077; 87081; 87186; 87205; 87449; 87636; 92611; 93005; 93306; 93970; 94640; 94667; 94668; 96361; 96365; 96367; 96375; 97110; 97161; 97165; 97530; 97535; 99285; A9270; C9113; G0378; J0456; J0692; J0696; J1650; J1940; J3475; J7030; Q9967